=== PATIENT | female | born 1930 | race Two or more races ===

== ENCOUNTER 2019-10-19 00:06 | Inpatient (IN) | payer MEDICARE, OTHER ==
[2019-10-19] VITALS (8 sets, daily range): BP systolic 139–189; BP diastolic 58–91
[~2019-10-19] VITALS: Ht 162.6 cm; Wt 62.6 kg
[~2019-10-19 00:06] MED LIST: ACETAMINOPHEN325 M1 ORAL; ASPIRIN81 MG ORAL; DOCUSATE SODIU100 MG ORAL; ELIQUIS5 MG PO; HYDRALAZINE HCL50 MG ORAL; IBUPROFEN600 MG ORAL; IMODIUM A-1 MG/7.5 M PO; LEVOTHYROXINE75 MCG ORAL; MYLANTA MAXIMU355 ML PO; NITRO0.4 SL
[2019-10-19] MEDS ORDERED: fentaNYL 100 mcg/2 mL IV ONE (00:15)
--- NOTE | 2019-10-19 00:32 | Emergency Room Report ---
History of Present Illness General Chief Complaint: Multiple Trauma/Fall Source: Patient, Medical Record, EMS Present Illness HPI Patient is an 89-year-old female presents to the ER status post fall. Patient states that she slipped on the wet floor hitting her left buttock on the ground. She denies any head trauma or loss of consciousness. Patient is on aspirin. Patient was brought in by EMS from her extended care facility. Patient denies any prodromal symptoms. Patient denies any chest pain or shortness of breath. She denies any headache or focal weakness. She denies any abdominal pain, nausea or vomiting. Allergies: Coded Allergies: No Known Allergies (Unverified , 04/17/19) COVID-19 Screening Contact w/high risk pt: No Recent Travel to affected area: No Experienced COVID-19 symptoms?: No COVID-19 Testing performed POLICE RECORDS CLERK: No Patient History Now: No Reviewed Nursing Documentation: PMH: Agreed; PSxH: Agreed Nursing Documentation-PMH Hx Cardiac Problems: Yes - unspecific cardiac arrhythmia, hyperlipidemia, AFib , hypothyroidism Hx Hypertension: Yes Hx Pacemaker: No Hx Asthma: No Hx COPD: No Hx Diabetes: No Hx Cancer: No Hx Gastrointestinal Problems: Yes - GERD Hx Dialysis: No History Of Psychiatric Problem: No Hx Neurological Problems: No Hx Cerebrovascular Accident: Yes Hx Seizures: No Review of Systems All Other Systems: negative except mentioned in HPI Physical Exam Vital Signs Date Time Temp Pulse Resp B/P (MAP) Pulse Ox O2 Delivery O2 Flow Rate FiO2 10/19/19 00:06 99.3 104 26 168/86 (113) 94 Room Air Sp02 EP Interpretation: reviewed, normal General Appearance: no apparent distress, alert, GCS 15, non-toxic Head: normocephalic, atraumatic Eyes: bilateral eye normal inspection, bilateral eye PERRL ENT: hearing grossly normal, normal pharynx, no angioedema, normal voice Neck: full range of motion, supple/symm/no masses Respiratory: chest non-tender, lungs clear, normal breath sounds, speaking full sentences Cardiovascular #1: irregularly irregular Cardiovascular #2: 2+ dorsalis pedis (R), 2+ dorsalis pedis (L) Gastrointestinal: normal bowel sounds, non tender, soft, non-distended, no guarding, no rebound Rectal: deferred Genitourinary: no CVA tenderness Musculoskeletal: no calf tenderness, other - Left lower extremity shortened and externally rotated, diffuse left hip tenderness to palpation with limited range of motion secondary to pain Neurologic: emergency medicine nurse practitioner III-XII nml as tested Psychiatric: no suicidal/homicidal ideation Skin: no rash Lymphatic: no adenopathy Medical Decision Making Diagnostic Impression: Primary Impression: Closed comminuted intertrochanteric fracture of left femur Additional Impression: Fall ER Course Patient presents after a fall. Patient has left intertrochanteric femur fracture. Patient has been preop. UA is pending at this time. Patient to be admitted for further treatment and evaluation. Laboratory Tests Test 10/19/19 00:10 White Blood Count 10.8 K/UL (4.8-10.8) Red Blood Count 4.23 M/UL (4.20-5.40) Hemoglobin 11.7 G/DL (12.0-16.0) L Hematocrit 36.5 % (37.0-47.0) L Mean Corpuscular Volume 86 FL (80-99) Mean Corpuscular Hemoglobin 27.7 PG (27.0-31.0) Mean Corpuscular Hemoglobin Concent 32.1 G/DL (32.0-36.0) Red Cell Distribution Width 14.7 % (11.6-14.8) Platelet Count 338 K/UL (150-450) Mean Platelet Volume 5.1 FL (6.5-10.1) L Neutrophils (%) (Auto) 80.0 % (45.0-75.0) H Lymphocytes (%) (Auto) 15.1 % (20.0-45.0) L Monocytes (%) (Auto) 3.5 % (1.0-10.0) Eosinophils (%) (Auto) 0.1 % (0.0-3.0) Basophils (%) (Auto) 1.3 % (0.0-2.0) Prothrombin Time 10.6 SEC (9.30-11.50) Prothrombin Time INR 1.0 (0.9-1.1) Activated Partial Thromboplast Time 26 SEC (23-33) Sodium Level 136 MMOL/L (136-145) Potassium Level 4.0 MMOL/L (3.5-5.1) Chloride Level 99 MMOL/L (98-107) Carbon Dioxide Level 28 MMOL/L (21-32) Anion Gap 9 mmol/L (5-15) Blood Urea Nitrogen 25 mg/dL (7-18) H Creatinine 0.9 MG/DL (0.55-1.30) Estimated Glomerular Filtration Rate 59.2 mL/min (>60) Glucose Level 248 MG/DL (74-106) H Calcium Level 9.3 MG/DL (8.5-10.1) Magnesium Level 1.8 MG/DL (1.8-2.4) Total Bilirubin 0.2 MG/DL (0.2-1.0) Aspartate Amino Transferase (AST) 20 U/L (15-37) Alanine Aminotransferase (ALT) 15 U/L (12-78) Alkaline Phosphatase 69 U/L (46-116) Total Protein 8.0 G/DL (6.4-8.2) Albumin 4.2 G/DL (3.4-5.0) Globulin 3.8 g/dL Albumin/Globulin Ratio 1.1 (1.0-2.7) EKG Diagnostic Results EKG Time: 00:31 EP Interpretation: Hanh Rivero MD afib Rate: normal - 97 Rhythm: other - afib ST Segments: no acute changes ASA given to the pt in ED: No Rhythm Strip Diag. Results Rhythm Strip Time: 00:34 EP Interpretation: yes - Hanh Rivero MD Rate: 97 Rhythm: no PVC's, no ectopy, other - afib Other X-Ray Diagnostic Results Other X-Ray Diagnostic Results : X-Ray ordered: pelvis # of Views/Limited Vs Complete: 1 View Indication: Pain EP Interpretation: Yes Interpretation: no dislocation, other - no foreign body, left femoral intertrochanteric fracture. Impression: Other - Comminuted left femoral intertrochanteric fracture. Electronically Signed by: Hanh Rivero MD Last Vital Signs Date Time Temp Pulse Resp B/P (MAP) Pulse Ox O2 Delivery O2 Flow Rate FiO2 10/19/19 00:06 99.3 104 26 168/86 (113) 94 Room Air Disposition: ADMITTED INPATIENT Condition: Critical Physician Consult: Hanh Pandey M.D. Oct 19, 2019 00:32
[2019-10-19 00:57] LABS: BASOPHILS % (AUTO) 1.3 % (0.0-2.0); EOSINOPHILS % (AUTO) 0.1 % (0.0-3.0); HEMATOCRIT 36.5 % (37.0-47.0); HEMOGLOBIN 11.7 G/DL (12.0-16.0); LYMPHOCYTES % (AUTO) 15.1 % (20.0-45.0); MEAN CORPUSCULAR VOLUME 86 FL (80-99); MONOCYTES % (AUTO) 3.5 % (1.0-10.0); PLATELET COUNT 338 K/UL (150-450); RED BLOOD COUNT 4.23 M/UL (4.20-5.40); RED CELL DISTRIBUTION WIDTH 14.7 % (11.6-14.8); WHITE BLOOD COUNT 10.8 K/UL (4.8-10.8)
[2019-10-19 01:06] LABS: ANION GAP 9 mmol/L (5-15); BLOOD UREA NITROGEN 25 mg/dL (7-18); CALCIUM 9.3 MG/DL (8.5-10.1); CARBON DIOXIDE 28 MMOL/L (21-32); CHLORIDE 99 MMOL/L (98-107); CREATININE 0.9 MG/DL (0.55-1.30); SODIUM 136 MMOL/L (136-145)
[2019-10-19 01:10] LABS: ALANINE AMINOTRANSFERASE 15 U/L (12-78); ALBUMIN 4.2 G/DL (3.4-5.0); ALBUMIN/GLOBULIN RATIO 1.1 (1.0-2.7); ALKALINE PHOSPHATASE 69 U/L (46-116); ASPARTATE AMINO TRANSFERASE 20 U/L (15-37); BILIRUBIN,TOTAL 0.2 MG/DL (0.2-1.0)
--- NOTE | 2019-10-19 01:43 | Diagnostic Imaging Report ---
EXAM: XR Pelvis, 1 or 2 Views CLINICAL HISTORY: FALL TECHNIQUE: Frontal view of the pelvis. COMPARISON: No relevant prior studies available. IMPRESSION: Comminuted left femoral intertrochanteric fracture.
--- NOTE | 2019-10-19 01:55 | Diagnostic Imaging Report ---
EXAM: CT Head Without Intravenous Contrast CLINICAL HISTORY: FALL TECHNIQUE: Axial computed tomography images of the head/brain without intravenous contrast. CTDI is 53 mGy and DLP is 1072 mGy-cm. One or more of the following dose reduction techniques were used: automated exposure control, adjustment of the mA and/or kV according to patient size, use of iterative reconstruction technique. COMPARISON: No relevant prior studies available. FINDINGS: Brain: No hemorrhage, herniation, or mass effect. Chronic microvascular ischemic changes. Old infarct in the left periventricular white matter. Ventricles: No hydrocephalus. Age related cerebral volume loss. Bones/joints: Unremarkable. Soft tissues: Unremarkable. Sinuses: Unremarkable. Mastoid air cells: Clear. IMPRESSION: No acute hemorrhage, hydrocephalus, or mass effect.
--- NOTE | 2019-10-19 01:56 | Diagnostic Imaging Report ---
EXAM: XR Chest, 1 View CLINICAL HISTORY: FALL TECHNIQUE: Frontal view of the chest. COMPARISON: 04/17/2019 IMPRESSION: Cardiomegaly. Chronic opacity again seen in the right upper lobe. Possibly scarring, atelectasis, or edema. No pneumothorax or pleural effusion.
--- NOTE | 2019-10-19 02:00 | Diagnostic Imaging Report ---
EXAM: CT Pelvis Without Intravenous Contrast CLINICAL HISTORY: FALL TECHNIQUE: Axial computed tomography images of the pelvis without intravenous contrast. CTDI is 5 mGy and DLP is 187 mGy-cm. One or more of the following dose reduction techniques were used: automated exposure control, adjustment of the mA and/or kV according to patient size, use of iterative reconstruction technique. COMPARISON: X-rays 10/19/2019 FINDINGS: Comminuted left femoral intertrochanteric fracture. Deformity of the right superior and inferior pubic rami, likely due to old fracture. Hip joints are intact bilaterally. Contusion along the left lateral pelvic wall. Severely distended bladder. Colonic diverticulosis. IMPRESSION: Comminuted left femoral intertrochanteric fracture. Deformity of the right superior and inferior pubic rami, likely due to old fracture.
[2019-10-19] MEDS ORDERED: Morphine Sulfate 2mg/ml Inj(IV/IM USE ONLY) IVP PRN (02:30)
[2019-10-19] MEDS ORDERED: Nitroglycerin Subl 0.4mg tab SL PRN (07:00)
[2019-10-19] MEDS: D5 1/2NS 1,000 ML IV SCH ×2 (07:25→23:25)
[2019-10-19] MEDS: HydrALAZINE 50mg tab ORAL SCH ×3 (08:57→21:30)
[2019-10-19] MEDS: Multivitamin w/Minerals tab ORAL SCH (08:58)
[2019-10-19] MEDS: Aspirin Baby 81mg ORAL SCH (08:58)
[2019-10-19 09:12] LABS: ANION GAP 10 mmol/L (5-15); BLOOD UREA NITROGEN 22 mg/dL (7-18); CALCIUM 8.8 MG/DL (8.5-10.1); CARBON DIOXIDE 23 MMOL/L (21-32); CHLORIDE 100 MMOL/L (98-107); CREATININE 0.8 MG/DL (0.55-1.30); POTASSIUM 3.9 MMOL/L (3.5-5.1); SODIUM 133 MMOL/L (136-145)
[2019-10-19 09:38] LABS: EOSINOPHILS % (AUTO) 0.1 % (0.0-3.0); HEMATOCRIT 35.8 % (37.0-47.0); HEMOGLOBIN 10.9 G/DL (12.0-16.0); LYMPHOCYTES % (AUTO) 12.8 % (20.0-45.0); MEAN CORPUSCULAR VOLUME 87 FL (80-99); MONOCYTES % (AUTO) 4.8 % (1.0-10.0); NEUTROPHILS % (AUTO) 81.4 % (45.0-75.0); PLATELET COUNT 327 K/UL (150-450); RED BLOOD COUNT 4.11 M/UL (4.20-5.40); RED CELL DISTRIBUTION WIDTH 14.8 % (11.6-14.8)
[2019-10-19] MEDS: Morphine Sulfate 2mg/ml Inj(IV/IM USE ONLY) IVP PRN ×2 (09:54→14:37)
--- NOTE | 2019-10-19 10:45 | History and Physical Report ---
DATE OF ADMISSION: 10/19/2019 TIME SEEN: Approximately at 9 a.m. CONSULTANTS: 1. Grabiel Moreira MD. 2. Rajat Zamudio MD. CHIEF COMPLAINT: Left hip fracture. BRIEF HISTORY: This is an 89-year-old female from [facility], presented with a recent fall, and x-ray showed left hip fracture. The patient was sent to [facility], diagnosed with above, admitted to medical floor for further treatment. Currently, O2 NC, calm, slightly weak in bed, not talking much. REVIEW OF SYSTEMS: Unavailable. PAST MEDICAL HISTORY: Includes GERD, hypothyroid, CVA, AFib, and hypertension. PAST SURGICAL HISTORY: Unknown. ALLERGIES: Denies. MEDICATIONS: Include apixaban, multivitamin, levothyroxine, Tylenol, nitroglycerin, morphine, Zofran, and hydralazine. SOCIAL HISTORY: No smoking. No alcohol. No intravenous drug abuse. FAMILY HISTORY: Noncontributory. PHYSICAL EXAMINATION: GENERAL: Calm in bed, O2 NC, slightly weak. Not responding to questions. VITAL SIGNS: Temperature 98 degrees, pulse 112, respirations 20, and blood pressure 151/76. GENERAL: Lethargic, sleepy. HEENT: Normocephalic and atraumatic. NECK: Trachea midline. CARDIOVASCULAR: No peripheral edema. LUNGS: Slight short of breath, on O2 nasal cannula. ABDOMEN: No apparent wound. EXTREMITIES: Show no cyanosis or clubbing. LABORATORY AND DIAGNOSTIC DATA: Labs at this time show hemoglobin and hematocrit 11/36, otherwise CBC is normal. BMP shows sodium 133, BUN 22. Glucose 235. INR is 1.0. ASSESSMENT: 1. Left hip fracture. 2. Suspect COVID. 3. Anemia. 4. GERD. 5. Hypothyroid. 6. Diabetes. 7. Hypertension. 8. CVA. 9. Atrial fibrillation. PLAN: 1. O2 and pulmonary treatment. 2. PT/OT and dietary followup. 3. Blood pressure, blood sugar, and pain control. 4. Resume home medications. 5. Cardiology and Orthopedics followup. 6. Possible surgery. Jesus Palomo D.O. DR: JAD JOB#: [id number] CC:
--- NOTE | 2019-10-19 12:48 | Cardiac Electrophysiology PN ---
Subjective Subjective [id number] DC Eliquis if scheduled for surgery. Will transfer to [facility] for atrial fib. Get echo and Add Lopressor 25 bid if HR allows Objective Last 24 Hour Vital Signs Date Time Temp Pulse Resp B/P (MAP) Pulse Ox O2 Delivery O2 Flow Rate FiO2 10/19/19 12:02 98.0 95 20 139/66 (90) 99 10/19/19 09:21 Room Air 10/19/19 08:57 151/76 10/19/19 08:00 98.0 112 20 151/76 (101) 97 10/19/19 04:00 98.0 102 19 159/87 (111) 98 10/19/19 03:45 Nasal Cannula 2.0 10/19/19 02:30 98.8 100 20 155/77 (103) 99 10/19/19 02:25 98.7 95 18 149/60 100 Nasal Cannula 3.0 100 10/19/19 01:33 98.8 100 18 163/58 100 Nasal Cannula 3.0 10/19/19 00:52 99.4 10/19/19 00:28 189/91 10/19/19 00:20 99.3 95 19 189/91 99 Nasal Cannula 3.0 10/19/19 00:20 104 26 Room Air 10/19/19 00:06 99.3 104 26 168/86 (113) 94 Room Air Intake and Output 10/18/19 10/19/19 19:00 07:00 Intake Total 1000 ml Balance 1000 ml Intake IV Total 1000 ml Laboratory Tests Test 10/19/19 00:10 10/19/19 08:35 White Blood Count 10.8 K/UL (4.8-10.8) 9.0 K/UL (4.8-10.8) Red Blood Count 4.23 M/UL (4.20-5.40) 4.11 M/UL (4.20-5.40) L Hemoglobin 11.7 G/DL (12.0-16.0) L 10.9 G/DL (12.0-16.0) L Hematocrit 36.5 % (37.0-47.0) L 35.8 % (37.0-47.0) L Mean Corpuscular Volume 86 FL (80-99) 87 FL (80-99) Mean Corpuscular Hemoglobin 27.7 PG (27.0-31.0) 26.5 PG (27.0-31.0) L Mean Corpuscular Hemoglobin Concent 32.1 G/DL (32.0-36.0) 30.5 G/DL (32.0-36.0) L Red Cell Distribution Width 14.7 % (11.6-14.8) 14.8 % (11.6-14.8) Platelet Count 338 K/UL (150-450) 327 K/UL (150-450) Mean Platelet Volume 5.1 FL (6.5-10.1) L 4.8 FL (6.5-10.1) L Neutrophils (%) (Auto) 80.0 % (45.0-75.0) H 81.4 % (45.0-75.0) H Lymphocytes (%) (Auto) 15.1 % (20.0-45.0) L 12.8 % (20.0-45.0) L Monocytes (%) (Auto) 3.5 % (1.0-10.0) 4.8 % (1.0-10.0) Eosinophils (%) (Auto) 0.1 % (0.0-3.0) 0.1 % (0.0-3.0) Basophils (%) (Auto) 1.3 % (0.0-2.0) 1.0 % (0.0-2.0) Prothrombin Time 10.6 SEC (9.30-11.50) Prothromb Time International Ratio 1.0 (0.9-1.1) Activated Partial Thromboplast Time 26 SEC (23-33) Sodium Level 136 MMOL/L (136-145) 133 MMOL/L (136-145) L Potassium Level 4.0 MMOL/L (3.5-5.1) 3.9 MMOL/L (3.5-5.1) Chloride Level 99 MMOL/L (98-107) 100 MMOL/L (98-107) Carbon Dioxide Level 28 MMOL/L (21-32) 23 MMOL/L (21-32) Anion Gap 9 mmol/L (5-15) 10 mmol/L (5-15) Blood Urea Nitrogen 25 mg/dL (7-18) H 22 mg/dL (7-18) H Creatinine 0.9 MG/DL (0.55-1.30) 0.8 MG/DL (0.55-1.30) Estimat Glomerular Filtration Rate 59.2 mL/min (>60) > 60 mL/min (>60) Glucose Level 248 MG/DL (74-106) H 235 MG/DL (74-106) H Calcium Level 9.3 MG/DL (8.5-10.1) 8.8 MG/DL (8.5-10.1) Magnesium Level 1.8 MG/DL (1.8-2.4) Total Bilirubin 0.2 MG/DL (0.2-1.0) Aspartate Amino Transf (AST/SGOT) 20 U/L (15-37) Alanine Aminotransferase (ALT/SGPT) 15 U/L (12-78) Alkaline Phosphatase 69 U/L (46-116) Total Protein 8.0 G/DL (6.4-8.2) Albumin 4.2 G/DL (3.4-5.0) Globulin 3.8 g/dL Albumin/Globulin Ratio 1.1 (1.0-2.7) Microbiology Date/Time Source Procedure Growth Status 10/19/19 02:25 Rectum Received Rajat Zamudio MD Oct 19, 2019 12:48
[2019-10-19] MEDS: Eliquis 5mg tablet ORAL SCH (14:36)
--- NOTE | 2019-10-19 18:15 | Consultation ---
DATE OF CONSULTATION: 10/19/2019 CARDIOLOGY CONSULTATION CONSULTING PHYSICIAN: Rajat Zamudio MD. REFERRING PHYSICIAN: Jesus Palomo DO. REASON FOR CONSULTATION: hypertension, atrial fibrillation, and preoperative clearance prior to hip surgery. HISTORY OF PRESENT ILLNESS: The patient is an 89-year-old lady with history of hypertension, chronic atrial fibrillation, and dementia as well as gastroesophageal reflux disease as well as history of prior CVA, who was brought to the emergency room after she had slipped on wet floor, hitting the left body on the ground. The patient denies any loss of consciousness or head trauma. The patient was brought in by paramedics from [facility]. The x-ray showed closed comminuted intertrochanteric fracture of the left femur. Cardiology consultation was obtained for further evaluation. Her EKG also showed the patient was in atrial fibrillation with nonspecific ST-T wave abnormalities. REVIEW OF SYSTEMS: Negative other than what was mentioned in the history of present illness. PAST MEDICAL HISTORY: As mentioned above. FAMILY HISTORY: Noncontributory. SOCIAL HISTORY: She lives in long-term. Does not smoke or drink alcohol. PHYSICAL EXAMINATION: VITAL SIGNS: Blood pressure 139/66, pulse 95, respirations 20, temperature 98. HEAD AND NECK: Showed no JVD. LUNGS: Clear. CARDIOVASCULAR: Irregular S1 and S2 with no gallop. ABDOMEN: Soft. EXTREMITIES: No pitting edema. LABORATORY AND DIAGNOSTIC DATA: Her labs show white count of 9, hemoglobin of 11, hematocrit of 35, and platelet count of 327,000. Sodium is 132, potassium 3.9, BUN of 22, creatinine 0.8, and glucose of 235. INR is 1. ASSESSMENT AND PLAN: 1. Atrial fibrillation. The rate is currently controlled. She is on Eliquis 5 mg daily. Transfer to telemetry for close monitoring and get an echocardiogram. 2. Abnormal electrocardiogram, ischemia. The patient does not have any chest pain. Already on aspirin 81 mg daily. 3. Hypertension, on hydralazine 50 mg every 8 hours. 4. Status post fall and left hip fracture. Awaiting consent for surgery. We will also get an echocardiogram for further evaluation and transfer the patient to telemetry. Of note, the patient is off any AV-solomon blocking agents and may need to be put on beta-ben for her rate control for preoperative risk reduction with beta-blockers. Thank you very much, , for allowing me to participate in the care of this patient. Please do not hesitate to contact me for any questions regarding my evaluation. Rajat Zamudio M.D. DR: Madalyn JOB#: [id number] CC:
[2019-10-20] VITALS: BP 129/69
[2019-10-20 04:00] VITALS: BP 141/60
[2019-10-20] MEDS: HydrALAZINE 50mg tab ORAL SCH ×2 (05:20→14:34)
[2019-10-20] MEDS: Morphine Sulfate 2mg/ml Inj(IV/IM USE ONLY) IVP PRN (05:21)
[2019-10-20 06:02] LABS: BASOPHILS % (AUTO) 1.8 % (0.0-2.0); EOSINOPHILS % (AUTO) 1.2 % (0.0-3.0); HEMATOCRIT 31.9 % (37.0-47.0); HEMOGLOBIN 9.7 G/DL (12.0-16.0); LYMPHOCYTES % (AUTO) 11.2 % (20.0-45.0); MEAN CORPUSCULAR VOLUME 88 FL (80-99); MONOCYTES % (AUTO) 8.7 % (1.0-10.0); NEUTROPHILS % (AUTO) 77.1 % (45.0-75.0); PLATELET COUNT 285 K/UL (150-450); RED BLOOD COUNT 3.63 M/UL (4.20-5.40); RED CELL DISTRIBUTION WIDTH 14.9 % (11.6-14.8); WHITE BLOOD COUNT 8.1 K/UL (4.8-10.8)
[2019-10-20 06:13] LABS: ANION GAP 10 mmol/L (5-15); BLOOD UREA NITROGEN 22 mg/dL (7-18); CALCIUM 8.6 MG/DL (8.5-10.1); CARBON DIOXIDE 26 MMOL/L (21-32); CHLORIDE 100 MMOL/L (98-107); CHOLESTEROL 157 MG/DL (< 200); CREATININE 0.7 MG/DL (0.55-1.30); HDL CHOLESTEROL 47 MG/DL (40-60); POTASSIUM 3.9 MMOL/L (3.5-5.1); SODIUM 135 MMOL/L (136-145); TRIGLYCERIDES 133 MG/DL (30-150)
[2019-10-20] MEDS: Aspirin Baby 81mg ORAL SCH (07:45)
[2019-10-20] MEDS: Eliquis 5mg tablet ORAL SCH (07:46)
[2019-10-20 08:00] VITALS: BP 101/53
[2019-10-20] MEDS ORDERED: D5 1/2NS 1000ml IV ONE (08:27)
[2019-10-20] MEDS: Multivitamin w/Minerals tab ORAL SCH (08:51)
--- NOTE | 2019-10-20 08:53 | General Progress Note ---
Assessment/Plan Problem List: (1) Troponin level elevated ICD Codes: R79.89 - Other specified abnormal findings of blood chemistry SNOMED: 580765414, 738277992, 951113169 (2) GERD (gastroesophageal reflux disease) ICD Codes: K21.9 - Gastro-esophageal reflux disease without esophagitis SNOMED: 894775346 (3) Hypothyroid ICD Codes: E03.9 - Hypothyroidism, unspecified SNOMED: 07585976 (4) CVA (cerebral vascular accident) ICD Codes: I63.9 - Cerebral infarction, unspecified SNOMED: 837969730 (5) Afib ICD Codes: I48.91 - Unspecified atrial fibrillation SNOMED: 40612555 (6) HTN (hypertension) ICD Codes: I10 - Essential (primary) hypertension SNOMED: 74420808 (7) Fall ICD Codes: W19.XXXA - Unspecified fall, initial encounter SNOMED: 8456882, 166753517 (8) Closed comminuted intertrochanteric fracture of left femur ICD Codes: S72.142A - Displaced intertrochanteric fracture of left femur, initial encounter for closed fracture SNOMED: 266461745, 84471117814984357 Status: unchanged Assessment/Plan: o2 pulm tx pt diet cardio ortho f/u cbc bmp am Subjective Constitutional: Reports: weakness Allergies: Coded Allergies: No Known Allergies (Unverified , 04/17/19) All Systems: reviewed and negative except above Subjective o2nc sleepy Objective Last 24 Hour Vital Signs Date Time Temp Pulse Resp B/P (MAP) Pulse Ox O2 Delivery O2 Flow Rate FiO2 10/20/19 05:20 141/60 10/20/19 04:00 97.7 98 24 141/60 (87) 96 98 10/20/19 00:00 97.9 108 26 129/69 (89) 98 108 10/19/19 21:30 147/65 10/19/19 21:00 Nasal Cannula 2.0 10/19/19 20:00 96.8 105 26 147/65 (92) 95 105 10/19/19 16:00 98.2 96 24 148/72 (97) 97 10/19/19 14:37 139/66 10/19/19 12:02 98.0 95 20 139/66 (90) 99 10/19/19 09:21 Room Air 10/19/19 08:57 151/76 Intake and Output 10/19/19 10/20/19 19:00 07:00 Intake Total 850 ml Output Total 200 ml Balance 850 ml -200 ml Intake Oral 200 ml IV Total 450 ml Other 200 ml Output Urine Total 200 ml # Voids 2 1 Laboratory Tests 10/19/19 17:50: Troponin I 0.241H 10/20/19 03:15: Troponin I 0.146H, White Blood Count 8.1, Red Blood Count 3.63L, Hemoglobin 9.7L , Hematocrit 31.9L, Mean Corpuscular Volume 88, Mean Corpuscular Hemoglobin 26.7L, Mean Corpuscular Hemoglobin Concent 30.4L, Red Cell Distribution Width 14.9H, Platelet Count 285, Mean Platelet Volume 4.8L, Neutrophils (%) (Auto) 77.1H, Lymphocytes (%) (Auto) 11.2L, Monocytes (%) (Auto) 8.7, Eosinophils (%) ( Auto) 1.2, Basophils (%) (Auto) 1.8, Sodium Level 135L, Potassium Level 3.9, Chloride Level 100, Carbon Dioxide Level 26, Anion Gap 10, Blood Urea Nitrogen 22H, Creatinine 0.7, Estimat Glomerular Filtration Rate > 60, Glucose Level 183H , Calcium Level 8.6, Pro-B-Type Natriuretic Peptide 1488H, Triglycerides Level 133, Cholesterol Level 157, LDL Cholesterol 87, HDL Cholesterol 47, Cholesterol/ HDL Ratio 3.3 Height (Feet): 5 Height (Inches): 4.00 Weight (Pounds): 138 General Appearance: lethargic EENT: normal ENT inspection Neck: normal alignment Cardiovascular: normal rate, regular rhythm Respiratory/Chest: no respiratory distress, no accessory muscle use Extremities: normal inspection Edema: no edema noted Arm (L), no edema noted Arm (R), no edema noted Leg (L), no edema noted Leg (R), no edema noted Pedal (L), no edema noted Pedal (R), no edema noted Generalized Skin: normal pigmentation Jesus Palomo DO Oct 20, 2019 08:53
[2019-10-20 12:00] VITALS: BP 154/64
--- NOTE | 2019-10-20 15:02 | Cardiac Electrophysiology PN ---
Assessment/Plan Assessment/Plan 1. Atrial fibrillation with RVR 130s. Add Lopressor 25 bid. 2. NSTEMI with lateral ischemia. Troponin levels are down from 0.33 to 0.2 to 0.1 The patient does not have any chest pain. Already on aspirin 81 mg daily.Add lopressor 25 bid and Lipitor 20. Likely demand ischemia in this 89 year old with atrial fib with RVR and hip Fx. ECho Nl EF Will treat medically. Not a candidate for cardiac cath at this point 3. Hypertension, decrease hydralazine to 25 mg every 8 hours and add Lopressor 25 bid 4. Status post fall and left hip fracture. Patient refusing surgery. Echocardiogram showed Nl EF 60%. Remains at high risk of perioperative mortality in view of age 89 and NSTEMI. 5. Being Ruled out for COVID DW RN Subjective Subjective Refusing surgery. Had atrial fib with RVR 130s. On tele now. In Covid isolation Objective Last 24 Hour Vital Signs Date Time Temp Pulse Resp B/P (MAP) Pulse Ox O2 Delivery O2 Flow Rate FiO2 10/20/19 14:34 128/54 10/20/19 12:00 96.8 94 20 154/64 (94) 100 100 10/20/19 09:00 Nasal Cannula 2.0 10/20/19 08:00 97.7 69 18 101/53 (69) 100 100 10/20/19 05:20 141/60 10/20/19 04:00 97.7 98 24 141/60 (87) 96 98 10/20/19 00:00 97.9 108 26 129/69 (89) 98 108 10/19/19 21:30 147/65 10/19/19 21:00 Nasal Cannula 2.0 10/19/19 20:00 96.8 105 26 147/65 (92) 95 105 10/19/19 16:00 98.2 96 24 148/72 (97) 97 Intake and Output 10/19/19 10/20/19 19:00 07:00 Intake Total 850 ml Output Total 200 ml Balance 850 ml -200 ml Intake Oral 200 ml IV Total 450 ml Other 200 ml Output Urine Total 200 ml # Voids 2 1 Laboratory Tests Test 10/19/19 17:50 10/20/19 03:15 Troponin I 0.241 ng/mL (0.000-0.056) 0.146 ng/mL (0.000-0.056) White Blood Count 8.1 K/UL (4.8-10.8) Red Blood Count 3.63 M/UL (4.20-5.40) L Hemoglobin 9.7 G/DL (12.0-16.0) L Hematocrit 31.9 % (37.0-47.0) L Mean Corpuscular Volume 88 FL (80-99) Mean Corpuscular Hemoglobin 26.7 PG (27.0-31.0) L Mean Corpuscular Hemoglobin Concent 30.4 G/DL (32.0-36.0) L Red Cell Distribution Width 14.9 % (11.6-14.8) H Platelet Count 285 K/UL (150-450) Mean Platelet Volume 4.8 FL (6.5-10.1) L Neutrophils (%) (Auto) 77.1 % (45.0-75.0) H Lymphocytes (%) (Auto) 11.2 % (20.0-45.0) L Monocytes (%) (Auto) 8.7 % (1.0-10.0) Eosinophils (%) (Auto) 1.2 % (0.0-3.0) Basophils (%) (Auto) 1.8 % (0.0-2.0) Sodium Level 135 MMOL/L (136-145) L Potassium Level 3.9 MMOL/L (3.5-5.1) Chloride Level 100 MMOL/L (98-107) Carbon Dioxide Level 26 MMOL/L (21-32) Anion Gap 10 mmol/L (5-15) Blood Urea Nitrogen 22 mg/dL (7-18) H Creatinine 0.7 MG/DL (0.55-1.30) Estimat Glomerular Filtration Rate > 60 mL/min (>60) Glucose Level 183 MG/DL (74-106) H Calcium Level 8.6 MG/DL (8.5-10.1) Pro-B-Type Natriuretic Peptide 1488 pg/mL (0-125) H Triglycerides Level 133 MG/DL (30-150) Cholesterol Level 157 MG/DL (< 200) LDL Cholesterol 87 mg/dL (<100) HDL Cholesterol 47 MG/DL (40-60) Cholesterol/HDL Ratio 3.3 (3.3-4.4) Microbiology Date/Time Source Procedure Growth Status 10/19/19 00:10 Nasopharynx Coronavirus COVID-19 PCR ([facility]) - Final Complete 10/19/19 02:25 Rectum Received Objective HEAD AND NECK: No JVD. LUNGS: Clear. CARDIOVASCULAR: Irregular S1 and S2 with no gallop. ABDOMEN: Soft. EXTREMITIES: No pitting edema. Rajat Zamudio MD Oct 20, 2019 15:02
[2019-10-20 16:00] VITALS: BP 137/74
[2019-10-20] MEDS: D5 1/2NS 1,000 ML IV SCH (17:23)
[2019-10-20] MEDS: HydrALAZINE 25mg tab ORAL SCH (17:25)
[2019-10-20 20:00] VITALS: BP 137/61
[2019-10-20] MEDS: Atorvastatin 20mg tab ORAL SCH (21:05)
[2019-10-21] VITALS (12 sets, daily range): BP systolic 107–152; BP diastolic 46–68
[2019-10-21] MEDS: Morphine Sulfate 2mg/ml Inj(IV/IM USE ONLY) IVP PRN (02:30)
[2019-10-21] MEDS ORDERED: LORazepam 0.5mg tab ORAL PRN (05:15)
[2019-10-21 05:36] LABS: BASOPHILS % (AUTO) 2.8 % (0.0-2.0); EOSINOPHILS % (AUTO) 2.8 % (0.0-3.0); HEMATOCRIT 34.8 % (37.0-47.0); HEMOGLOBIN 10.3 G/DL (12.0-16.0); LYMPHOCYTES % (AUTO) 15.8 % (20.0-45.0); MEAN CORPUSCULAR VOLUME 89 FL (80-99); MONOCYTES % (AUTO) 11.5 % (1.0-10.0); NEUTROPHILS % (AUTO) 67.1 % (45.0-75.0); PLATELET COUNT 309 K/UL (150-450); RED BLOOD COUNT 3.92 M/UL (4.20-5.40); RED CELL DISTRIBUTION WIDTH 14.4 % (11.6-14.8); WHITE BLOOD COUNT 8.4 K/UL (4.8-10.8)
[2019-10-21 06:06] LABS: ANION GAP 8 mmol/L (5-15); BLOOD UREA NITROGEN 15 mg/dL (7-18); CALCIUM 8.6 MG/DL (8.5-10.1); CARBON DIOXIDE 25 MMOL/L (21-32); CHLORIDE 97 MMOL/L (98-107); CREATININE 0.6 MG/DL (0.55-1.30); POTASSIUM 3.7 MMOL/L (3.5-5.1); SODIUM 130 MMOL/L (136-145)
--- NOTE | 2019-10-21 08:41 | General Progress Note ---
Assessment/Plan Problem List: (1) Troponin level elevated ICD Codes: R79.89 - Other specified abnormal findings of blood chemistry SNOMED: 225678680, 398381412, 860635484 (2) GERD (gastroesophageal reflux disease) ICD Codes: K21.9 - Gastro-esophageal reflux disease without esophagitis SNOMED: 211327208 (3) Hypothyroid ICD Codes: E03.9 - Hypothyroidism, unspecified SNOMED: 71510504 (4) CVA (cerebral vascular accident) ICD Codes: I63.9 - Cerebral infarction, unspecified SNOMED: 828624265 (5) Afib ICD Codes: I48.91 - Unspecified atrial fibrillation SNOMED: 49675810 (6) HTN (hypertension) ICD Codes: I10 - Essential (primary) hypertension SNOMED: 19853427 (7) Fall ICD Codes: W19.XXXA - Unspecified fall, initial encounter SNOMED: 4801138, 723538539 (8) Closed comminuted intertrochanteric fracture of left femur ICD Codes: S72.142A - Displaced intertrochanteric fracture of left femur, initial encounter for closed fracture SNOMED: 510377388, [id number] Status: unchanged Assessment/Plan: o2 pulm tx pt diet cardio ortho f/u cbc bmp am possible sx Subjective Constitutional: Reports: weakness Allergies: Coded Allergies: No Known Allergies (Unverified , 04/17/19) All Systems: reviewed and negative except above Subjective calm sleepy Objective Last 24 Hour Vital Signs Date Time Temp Pulse Resp B/P (MAP) Pulse Ox O2 Delivery O2 Flow Rate FiO2 10/21/19 04:00 97.9 90 18 146/52 (83) 96 90 10/21/19 04:00 78 10/21/19 03:00 98.7 10/21/19 00:00 98.7 79 18 130/55 (80) 94 79 10/21/19 00:00 79 10/20/19 21:04 100 134/61 10/20/19 21:00 Nasal Cannula 2.0 10/20/19 20:00 99.2 100 18 137/61 (86) 95 100 10/20/19 20:00 109 10/20/19 17:25 137/74 10/20/19 16:00 97.7 81 20 137/74 (95) 100 100 10/20/19 16:00 101 10/20/19 14:34 128/54 10/20/19 12:00 96.8 94 20 154/64 (94) 100 100 10/20/19 09:00 Nasal Cannula 2.0 Intake and Output 10/20/19 10/21/19 19:00 07:00 Intake Total 120 ml Output Total 200 ml 400 ml Balance -80 ml -400 ml Intake Oral 120 ml Output Urine Total 200 ml 400 ml Laboratory Tests 10/21/19 04:00: White Blood Count 8.4, Red Blood Count 3.92L, Hemoglobin 10.3L, Hematocrit 34.8L , Mean Corpuscular Volume 89, Mean Corpuscular Hemoglobin 26.2L, Mean Corpuscular Hemoglobin Concent 29.5L, Red Cell Distribution Width 14.4, Platelet Count 309, Mean Platelet Volume 4.7L, Neutrophils (%) (Auto) 67.1, Lymphocytes (%) (Auto) 15.8L, Monocytes (%) (Auto) 11.5H, Eosinophils (%) (Auto ) 2.8, Basophils (%) (Auto) 2.8H, Sodium Level 130L, Potassium Level 3.7, Chloride Level 97L, Carbon Dioxide Level 25, Anion Gap 8, Blood Urea Nitrogen 15 , Creatinine 0.6, Estimat Glomerular Filtration Rate > 60, Glucose Level 187H, Calcium Level 8.6 Height (Feet): 5 Height (Inches): 4.00 Weight (Pounds): 138 General Appearance: lethargic EENT: normal ENT inspection Neck: normal alignment Cardiovascular: normal rate, regular rhythm Respiratory/Chest: no respiratory distress, no accessory muscle use Extremities: normal inspection Skin: normal pigmentation Jesus Palomo DO Oct 21, 2019 08:41
--- NOTE | 2019-10-21 08:48 | Consultation ---
History of Present Illness General Date patient seen: Oct 21, 2019 Time patient seen: 07:30 Chief Complaint: Multiple Trauma/Fall Referring physician: Dr Palomo Reason for Consultation: pulm/in hospital care Present Illness HPI 89 years old female with PMH of HTN, HLD, A fib, CVA , hypothyroidism, GERD, presented to ED after fall. Patient apparently slipped on the wet floor hitting her left buttock on the ground. She denied head trauma or loss of consciousness . Patient was taking aspirin . She denied CP and SOB No NOVAK or focal weakness No abdominal pain , n/v. Upon evaluation patient was slightly tachycardic, tachypneic, BP was elevated 168/86 , pulse oximetry was stable on room air Laboratory work-up revealed no leukocytosis ,stable hemoglobin, hematocrit and platelet counts. Stable electrolytes. BUN 25, creatinine 0.9. Glucose 248. Stable LFT. Albumin 4.2 Initial troponin 0.374, repeated 0.241. EKG revealed atrial fibrillation with controlled ventricular response Echocardiogram demonstrated preserved ejection fraction of 60%. No evidence of WMA Mild left ventricular hypertrophy. Right ventricular systolic pressure of 29. Chest x-ray demonstrated cardiomegaly, chronic opacity left right upper lobe, possibly scaring ,atelectasis or edema, no pneumothorax or pleural effusion. CT of the head revealed no evidence of acute intracranial bleeding. Old infarct in the left periventricular white matter noted. CT of the pelvis demonstrated comminuted left femoral intertrochanteric fracture. X-ray of the pelvis revealed comminuted left femoral intertrochanteric fracture. In emergency department patient received analgesic and admitted for further work -up to telemetry floor. Allergies: Coded Allergies: No Known Allergies (Unverified , 04/17/19) Medication History Scheduled Aspirin* (Aspirin*), 81 MG ORAL DAILY, (Reported) Docusate Sodium* (Docusate Sodium*), 100 MG ORAL THREE TIMES A DAY, (Reported) Hydralazine Hcl* (Hydralazine Hcl*), 50 MG ORAL EVERY 8 HOURS, (Reported) Ibuprofen (Motrin), 600 MG ORAL FOUR TIMES A DAY, (Reported) Levothyroxine Sodium* (Levothyroxine Sodium*), 75 MCG ORAL DAILY, (Reported) Scheduled PRN Acetaminophen* (Acetaminophen 325MG Tablet*), 325 MG ORAL Q4H PRN for MILD PAIN, (Reported) Nitroglycerin 0.4MG table* (Nitroglycerin*), 0.4 MG SL Q5M PRN Miscellaneous Medications Apixaban (Eliquis), 5 MG PO, (Reported) Loperamide Hcl (Imodium A-D), 1 MG PO, (Reported) Mag Hydrox/Aluminum Hyd/Simeth (Mylanta Maximum Strength Liq), 355 ML PO, ( Reported) Patient History History Provided By: Medical Record Healthcare decision maker Resuscitation status Full code Advanced Directive on File Past Medical/Surgical History Past Medical/Surgical History: (1) CVA (cerebral vascular accident) (2) Afib (3) Hypothyroid (4) HTN (hypertension) (5) GERD (gastroesophageal reflux disease) Review of Systems Constitutional: Reports: weakness Eye: Reports: no symptoms Respiratory: Reports: no symptoms Cardiovascular: Reports: other - no CP, no SOB Gastrointestinal: Reports: constipation Genitourinary: Reports: no symptoms Musculoskeletal: Reports: see HPI, other - L hip pain Skin: Reports: no symptoms Psychiatric: Reports: no symptoms Neurological: Reports: other - hx of CVA Endocrine: Reports: no symptoms Hematologic/Lymphatic: Reports: no symptoms ROS Narrative Physical Exam General Appearance: no apparent distress, alert, other - elderly Yi speaking female Lines, tubes and drains: peripheral HEENT: normocephalic, atraumatic, anicteric, mucous membranes moist Neck: non-tender, supple Respiratory/Chest: lungs clear, no respiratory distress, no accessory muscle use Cardiovascular/Chest: irregularly irregular - A fib with controlled response Abdomen: normal bowel sounds, non tender, soft Extremities: no calf tenderness, normal capillary refill, no edema Skin Exam: warm/dry Neurologic: structural test engineer 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 grossly normal, abnormal gait, alert, responsive Musculoskeletal: atrophy - BLE, other - LLE shortened and externally rotated, diffuse L hip tenderness to palpation with limited ROM secondary to pain Last 24 Hour Vital Signs Date Time Temp Pulse Resp B/P (MAP) Pulse Ox O2 Delivery O2 Flow Rate FiO2 10/21/19 04:00 97.9 90 18 146/52 (83) 96 90 10/21/19 04:00 78 10/21/19 03:00 98.7 10/21/19 00:00 98.7 79 18 130/55 (80) 94 79 10/21/19 00:00 79 10/20/19 21:04 100 134/61 10/20/19 21:00 Nasal Cannula 2.0 10/20/19 20:00 99.2 100 18 137/61 (86) 95 100 10/20/19 20:00 109 10/20/19 17:25 137/74 10/20/19 16:00 97.7 81 20 137/74 (95) 100 100 10/20/19 16:00 101 10/20/19 14:34 128/54 10/20/19 12:00 96.8 94 20 154/64 (94) 100 100 10/20/19 09:00 Nasal Cannula 2.0 Intake and Output 10/20/19 10/21/19 19:00 07:00 Intake Total 120 ml Output Total 200 ml 400 ml Balance -80 ml -400 ml Intake Oral 120 ml Output Urine Total 200 ml 400 ml Laboratory Tests Test 10/21/19 04:00 White Blood Count 8.4 K/UL (4.8-10.8) Red Blood Count 3.92 M/UL (4.20-5.40) L Hemoglobin 10.3 G/DL (12.0-16.0) L Hematocrit 34.8 % (37.0-47.0) L Mean Corpuscular Volume 89 FL (80-99) Mean Corpuscular Hemoglobin 26.2 PG (27.0-31.0) L Mean Corpuscular Hemoglobin Concent 29.5 G/DL (32.0-36.0) L Red Cell Distribution Width 14.4 % (11.6-14.8) Platelet Count 309 K/UL (150-450) Mean Platelet Volume 4.7 FL (6.5-10.1) L Neutrophils (%) (Auto) 67.1 % (45.0-75.0) Lymphocytes (%) (Auto) 15.8 % (20.0-45.0) L Monocytes (%) (Auto) 11.5 % (1.0-10.0) H Eosinophils (%) (Auto) 2.8 % (0.0-3.0) Basophils (%) (Auto) 2.8 % (0.0-2.0) H Sodium Level 130 MMOL/L (136-145) L Potassium Level 3.7 MMOL/L (3.5-5.1) Chloride Level 97 MMOL/L (98-107) L Carbon Dioxide Level 25 MMOL/L (21-32) Anion Gap 8 mmol/L (5-15) Blood Urea Nitrogen 15 mg/dL (7-18) Creatinine 0.6 MG/DL (0.55-1.30) Estimat Glomerular Filtration Rate > 60 mL/min (>60) Glucose Level 187 MG/DL (74-106) H Calcium Level 8.6 MG/DL (8.5-10.1) Height (Feet): 5 Height (Inches): 4.00 Weight (Pounds): 138 Medications Current Medications Medications (Trade) Dose Ordered Sig/Lucina Route PRN Reason Start Time Stop Time Status Last Admin Dose Admin Acetaminophen (Tylenol) 325 mg Q4H PRN RECTAL Mild Pain (Pain Scale 1-3) 10/19/19 07:00 11/18/19 06:59 Apixaban (Eliquis) 5 mg DAILY ORAL 10/19/19 13:39 01/17/20 13:38 10/19/19 14:36 Aspirin (ASA) 81 mg DAILY ORAL 10/19/19 09:00 12/03/19 08:59 10/19/19 08:58 Atorvastatin Calcium (Lipitor) 20 mg BEDTIME ORAL 10/20/19 21:00 01/18/20 20:59 10/20/19 21:05 Dextrose/Sodium Chloride 1,000 ml @ 60 mls/hr [id number] IV 10/19/19 06:45 11/18/19 06:44 10/20/19 17:23 Hydralazine HCl (Apresoline) 25 mg BID ORAL 10/20/19 18:00 01/17/20 07:29 10/20/19 17:25 Levothyroxine Sodium (Synthroid) 75 mcg DAILY@0630 ORAL 10/19/19 07:30 11/18/19 07:29 10/21/19 06:28 Lorazepam (Ativan) 0.5 mg Q6H PRN ORAL For Anxiety 10/21/19 05:15 10/28/19 05:14 Memantine (Namenda) 5 mg DAILY ORAL 10/21/19 09:00 11/20/19 08:59 Metoprolol Tartrate (Lopressor) 25 mg Q12HR ORAL 10/20/19 21:00 01/18/20 20:59 10/20/19 21:04 Morphine Sulfate (Morphine Sulfate) 2 mg Q4H PRN IVP Moderate Pain (Pain Scale 4-6) 10/19/19 03:45 10/26/19 03:44 10/21/19 02:30 Multivitamins Therapeutic (Therapeutic Multivitamin) 1 ea DAILY ORAL 10/19/19 09:00 11/18/19 08:59 10/20/19 08:51 Nitroglycerin (Ntg) 0.4 mg Q5M PRN SL Prn Chest Pain 10/19/19 07:00 11/18/19 06:59 Assessment/Plan Assessment/Plan: ASSESSMENT Closed comminuted intertrochanteric fracture left femur secondary to fall Elevated troponin/NSTEMI Hypertension Atrial fibrillation History of CVA Hypothyroidism GERD Hyperglycemia PLAN OF CARE telemetry O2 titrate to keep sat above 92% , pulmonary toilet prn CXR stable serial troponin noted antiplatelet therapy with ASA, beta-blockade and statin lipid panel stable ECHO with pEF per cardio not a candidate for cardiac cath ; recommended medical treatment NSTEMI likely due to demand ischemia in setting of fal with fracture and A. fib rate control with BB, a/c with Eliquis BP management with hydralazine and BB ortho eval pending pain management fall precaution gentle IV hydration, monitor renal parameters, correct lytes as needed continue levothyroxine , check TSH hyperglycemia note, ? DM vs due to dextrose IV running and drawing blood from the the same arm ; will check HgA1c case discussed and evaluated by supervising physician Olivia Shannon NP Oct 21, 2019 08:48
[2019-10-21] MEDS: Aspirin Baby 81mg ORAL SCH (09:00)
[2019-10-21] MEDS: Eliquis 5mg tablet ORAL SCH (09:00)
[2019-10-21] MEDS: Memantine 10mg tab ORAL SCH (09:27)
[2019-10-21] MEDS: Multivitamin w/Minerals tab ORAL SCH (09:27)
[2019-10-21] MEDS: HydrALAZINE 25mg tab ORAL SCH ×2 (09:28→19:02)
[2019-10-21] MEDS: D5 1/2NS 1,000 ML IV SCH (10:55)
[2019-10-21] MEDS ORDERED: NeoSporin Gu Irrig 1ml Amp IRRIG ONE (12:37)
[2019-10-21] MEDS ORDERED: Bacitracin 50000 Units Vial ONE (12:37)
[2019-10-21] MEDS ORDERED: Bupivacaine w/Epi 0.5% 30ml Vial INJ ONE (12:37)
[2019-10-21] MEDS ORDERED: LR 1000ml ONE (13:00)
[2019-10-21] MEDS ORDERED: NS Irrig 1000ml ONE (13:00)
[2019-10-21] MEDS ORDERED: Sterile Water Irrig 1000ml IRRIG ONE (13:00)
--- NOTE | 2019-10-21 13:00 | Cardiac Electrophysiology PN ---
Assessment/Plan Assessment/Plan 1. Atrial fibrillation with RVR 130s. Decrease Lopressor to 12.5 bid in view of Mobitz block and chris. 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 2. NSTEMI with lateral ischemia. Troponin levels are coming down from 0.33 to 0.2 to 0.1 The patient does not have any chest pain. Already on aspirin 81 mg daily and lopressor 12.5 bid and Lipitor 20. Likely demand ischemia in this 89 year old with atrial fib with RVR and hip Fx. ECho Nl EF Will treat medically. Not a candidate for cardiac cath at this point 3. Hypertension, on hydralazine to 25 mg every 8 hours and Lopressor 12.5 bid 4. Status post fall and left hip fracture. Patient refusing surgery. Echocardiogram showed Nl EF 60%. Remains at high risk of perioperative mortality in view of age 89, tachy chris syndrome and NSTEMI. BARB Tracy and RN 5. Being Ruled out for COVID DW RN Subjective Subjective Signed the consent for surgery and psych felt she was competent. No CP or SOB. Just had Mobitz type 1 AVB with HR dropping to 45 at 11;01 today Had atrial fib with RVR 130s yesterday. Covid was negative but not off isolation yet Objective Last 24 Hour Vital Signs Date Time Temp Pulse Resp B/P (MAP) Pulse Ox O2 Delivery O2 Flow Rate FiO2 10/21/19 09:28 152/62 10/21/19 09:27 103 152/62 10/21/19 09:00 Nasal Cannula 2.0 10/21/19 08:00 76 10/21/19 08:00 96.8 103 18 152/62 (92) 92 103 10/21/19 04:00 97.9 90 18 146/52 (83) 96 90 10/21/19 04:00 78 10/21/19 03:00 98.7 10/21/19 00:00 98.7 79 18 130/55 (80) 94 79 10/21/19 00:00 79 10/20/19 21:04 100 134/61 10/20/19 21:00 Nasal Cannula 2.0 10/20/19 20:00 99.2 100 18 137/61 (86) 95 100 10/20/19 20:00 109 10/20/19 17:25 137/74 10/20/19 16:00 97.7 81 20 137/74 (95) 100 100 10/20/19 16:00 101 10/20/19 14:34 128/54 Intake and Output 10/20/19 10/21/19 19:00 07:00 Intake Total 120 ml Output Total 200 ml 400 ml Balance -80 ml -400 ml Intake Oral 120 ml Output Urine Total 200 ml 400 ml Laboratory Tests Test 10/21/19 04:00 White Blood Count 8.4 K/UL (4.8-10.8) Red Blood Count 3.92 M/UL (4.20-5.40) L Hemoglobin 10.3 G/DL (12.0-16.0) L Hematocrit 34.8 % (37.0-47.0) L Mean Corpuscular Volume 89 FL (80-99) Mean Corpuscular Hemoglobin 26.2 PG (27.0-31.0) L Mean Corpuscular Hemoglobin Concent 29.5 G/DL (32.0-36.0) L Red Cell Distribution Width 14.4 % (11.6-14.8) Platelet Count 309 K/UL (150-450) Mean Platelet Volume 4.7 FL (6.5-10.1) L Neutrophils (%) (Auto) 67.1 % (45.0-75.0) Lymphocytes (%) (Auto) 15.8 % (20.0-45.0) L Monocytes (%) (Auto) 11.5 % (1.0-10.0) H Eosinophils (%) (Auto) 2.8 % (0.0-3.0) Basophils (%) (Auto) 2.8 % (0.0-2.0) H Sodium Level 130 MMOL/L (136-145) L Potassium Level 3.7 MMOL/L (3.5-5.1) Chloride Level 97 MMOL/L (98-107) L Carbon Dioxide Level 25 MMOL/L (21-32) Anion Gap 8 mmol/L (5-15) Blood Urea Nitrogen 15 mg/dL (7-18) Creatinine 0.6 MG/DL (0.55-1.30) Estimat Glomerular Filtration Rate > 60 mL/min (>60) Glucose Level 187 MG/DL (74-106) H Calcium Level 8.6 MG/DL (8.5-10.1) Microbiology Date/Time Source Procedure Growth Status 10/19/19 02:25 Nasal Nares MRSA Culture - Final NO METHICILLIN RESISTANT STAPH AUREUS... Complete 10/19/19 00:10 Nasopharynx Coronavirus COVID-19 PCR (AURELIO) - Final Complete 10/19/19 02:25 Rectum - Final NO CARBAPENEM-RESISTANT ENTEROBACTERI... Complete 10/19/19 02:25 Rectum VRE Culture - Final Enterococcus Faecalis - Vre Complete Objective HEAD AND NECK: No JVD. LUNGS: Clear. CARDIOVASCULAR: Irregular S1 and S2 with no gallop. ABDOMEN: Soft. EXTREMITIES: No pitting edema. Rajat Zamudio MD Oct 21, 2019 13:00
[2019-10-21] MEDS ORDERED: cloNIDine 1000mcg/10ml inj ONE (13:12)
[2019-10-21] MEDS ORDERED: Bupivacaine 0.5% Inj 30 ml vial INJ ONE (13:12)
[2019-10-21] MEDS ORDERED: EPINEPHrine 1mg/1ml Amp ONE (13:12)
[2019-10-21] MEDS ORDERED: Lidocaine 1% Plain 30 ml INJ ONE (13:21)
[2019-10-21] MEDS ORDERED: Sodium Chloride 10ml vial INJ ONE (13:22)
[2019-10-21] MEDS ORDERED: LR 1000ml 1,000 ML IVLG SCH (13:50)
[2019-10-21] MEDS ORDERED: oxyCODONE HCL/Acetaminophen 5/325mg ORAL PRN (14:00)
[2019-10-21] MEDS ORDERED: Labetalol 5mg/ml 20ml vial IV PRN (14:00)
[2019-10-21] MEDS ORDERED: fentaNYL 100 mcg/2 mL IV PRN (14:00)
[2019-10-21] MEDS ORDERED: LORazepam Inj 2mg/ml 1ml IV PRN (14:00)
[2019-10-21] MEDS ORDERED: Metoclopramide 10mg/2ml Inj IVP PRN (14:00)
[2019-10-21] MEDS ORDERED: Hydromorphone 0.5mg/0.5ml inj IVP PRN (14:00)
[2019-10-21] MEDS ORDERED: Midazolam 2mg/2ml Inj IVP PRN (14:00)
[2019-10-21] MEDS ORDERED: DiphenhydrAMINE 50mg/ml Inj IVP PRN (14:00)
[2019-10-21] MEDS ORDERED: Meperidine 25mg/0.5ml Inj (FOR RIGORS ONLY) IV PRN (14:00)
[2019-10-21] MEDS ORDERED: ePHEDrine 50mg/ml Inj ONE ×2 (14:00→14:14)
[2019-10-21] MEDS ORDERED: HYDROcodone/Acetamin 7.5/325 tab ORAL PRN (14:00)
[2019-10-21] MEDS ORDERED: Atropine Sulfate 0.4mg/ml inj IVP PRN (14:00)
[2019-10-21] MEDS ORDERED: HYDROcodone/Acetamin 5/325 tab ORAL PRN ×2 (14:00→15:15)
--- NOTE | 2019-10-21 14:01 | Anethesia Preoperative Eval ---
Anesthesia Pre-op PMH/ROS General Date of Evaluation: Oct 21, 2019 Time of Evaluation: 13:06 Anesthesiologist: Peace ASA Score: ASA 4 - Emergency Mallampati Score Class I : Soft palate, uvula, fauces, pillars visible Class II: Soft palate, uvula, fauces visible Class III: Soft palate, base of uvula visible Class IV: Only hard plate visible Mallampati Classification: Class III Surgeon: Harish Diagnosis: L Hip Fx Surgical Procedure: ORIF L Hip Anesthesia History: none Family History: no anesthesia problems Allergies: Coded Allergies: No Known Allergies (Unverified , 04/17/19) Medications: see eMAR Patient NPO?: Yes Past Medical History Cardiovascular: Reports: HTN, arrhythmia - AFib, HL Pulmonary: Reports: other - Wheezing Gastrointestinal/Genitourinary: Reports: GERD Neurologic/Psychiatric: Reports: dementia Endocrine: Reports: hypothyroidism Hematology/Immune: Reports: anemia Other: obesity Anesthesia Pre-op Phys. Exam Physician Exam Last Vital Signs Date Time Temp Pulse Resp B/P (MAP) Pulse Ox O2 Delivery O2 Flow Rate FiO2 10/21/19 12:00 97.5 74 20 130/46 (74) 97 103 10/21/19 09:00 Nasal Cannula 2.0 Constitutional: NAD Neurologic: CN 2-12 intact Cardiovascular: RRR Respiratory: other - Wheezing Gastrointestinal: S/NT/ND Airway Exam Mallampati Score: Class III MO: limited ROM: limited Teeth: missing Anesthesia Pre-op A/P Labs Hematology Test 10/21/19 04:00 White Blood Count 8.4 K/UL (4.8-10.8) Red Blood Count 3.92 M/UL (4.20-5.40) L Hemoglobin 10.3 G/DL (12.0-16.0) L Hematocrit 34.8 % (37.0-47.0) L Mean Corpuscular Volume 89 FL (80-99) Mean Corpuscular Hemoglobin 26.2 PG (27.0-31.0) L Mean Corpuscular Hemoglobin Concent 29.5 G/DL (32.0-36.0) L Red Cell Distribution Width 14.4 % (11.6-14.8) Platelet Count 309 K/UL (150-450) Mean Platelet Volume 4.7 FL (6.5-10.1) L Neutrophils (%) (Auto) 67.1 % (45.0-75.0) Lymphocytes (%) (Auto) 15.8 % (20.0-45.0) L Monocytes (%) (Auto) 11.5 % (1.0-10.0) H Eosinophils (%) (Auto) 2.8 % (0.0-3.0) Basophils (%) (Auto) 2.8 % (0.0-2.0) H Chemistry Test 10/21/19 04:00 Sodium Level 130 MMOL/L (136-145) L Potassium Level 3.7 MMOL/L (3.5-5.1) Chloride Level 97 MMOL/L (98-107) L Carbon Dioxide Level 25 MMOL/L (21-32) Anion Gap 8 mmol/L (5-15) Blood Urea Nitrogen 15 mg/dL (7-18) Creatinine 0.6 MG/DL (0.55-1.30) Estimat Glomerular Filtration Rate > 60 mL/min (>60) Glucose Level 187 MG/DL (74-106) H Calcium Level 8.6 MG/DL (8.5-10.1) Risk Assessment & Plan Assessment: ASA 4E Plan: Spinal, GA Status Change Before Surgery: No Pre-Antibiotics Dru Gram Ancef IV Given Within 1 Hr of Incision: Yes Time Given: 13:51 John Hand MD Oct 21, 2019 14:01
--- NOTE | 2019-10-21 14:03 | Immediate Post-Op Evaluation ---
Immediate Post-Op Evalulation Immediate Post-Op Evalulation Procedure: ORIF L Hip Date of Evaluation: Oct 21, 2019 Time of Evaluation: 15:00 IV Fluids: 300 LR Blood Products: 0 Estimated Blood Loss: 10 Urinary Output: 0 Blood Pressure Systolic: 110 Blood Pressure Diastolic: 53 Pulse Rate: 84 Respiratory Rate: 16 O2 Sat by Pulse Oximetry: 98 Temperature (Fahrenheit): 97.4 Pain Score (1-10): 1 Nausea: No Vomiting: No Complications 0 Patient Status: awake, reacts, patent, none Hydration Status: adequate Dru Gram Ancef IV Given Within 1 Hr of Incision: Yes Time Given: 13:51 John Hand MD Oct 21, 2019 14:03
--- NOTE | 2019-10-21 19:18 | Pre-Procedure Note/Attestation ---
Pre-Procedure Note/Attestation Complete Prior to Procedure Planned Procedure: left Procedure Narrative: Left hip nailing Indications for Procedure Pre-Operative Diagnosis: Left hip intertrochanteric fracture Attestation I attest that I discussed the nature of the procedure; its benefits; risks and complications; and alternatives (and the risks and benefits of such alternatives ), prior to the procedure, with the patient (or the patient's legal employer relations representative). I attest that, if there was a reasonable possibility of needing a blood transfusion, the patient (or the patient's legal employer relations representative) was given the [facility] standardized written summary, pursuant to the [place] Blood Safety Act ([place] Health and Safety Code # 1645, as amended). I attest that I re-evaluated the patient just prior to the surgery and that there has been no change in the patient's H&P, except as documented below: Grabiel Moreira MD Oct 21, 2019 19:18
--- NOTE | 2019-10-21 19:19 | Brief Operative Note ---
Immediate Post Operative Note Operative Note Pre-op Diagnosis: Left hip intertrochanteric fracture Procedure: Left hip short nailing Post-op Diagnosis: Left hip fracture Post-op Diagnosis: same as pre-op Findings: consistent w/pre-op dx studies Surgeon: Harish Anesthesiologist: Peace Anesthesia: regional Specimen: none Complications: none Condition: stable Fluids: 50 ml Estimated Blood Loss: minimal Drains: none Implant(s) used?: Yes Grabiel Moreira MD Oct 21, 2019 19:19
--- NOTE | 2019-10-21 19:59 | Consultation ---
DATE OF CONSULTATION: 10/21/2019 ORTHOPEDIC CONSULTATION CONSULTING PHYSICIAN: Grabiel Moreira M.D. REQUESTING PHYSICIAN: Jesus Palomo D.O. DIAGNOSIS: Left hip fracture. HISTORY: The patient is an 89-year-old woman, who slipped and fell. She sustained a left hip fracture. She has chronic heart condition and was evaluated by Cardiology upon admission. She was considered high risk for surgery. The Eliquis was held for surgical consideration. REVIEW OF SYSTEMS: As per history of present illness. PHYSICAL EXAMINATION: She is resting comfortably in bed. Left lower extremity neurovascular examination is grossly intact, though no provocative testing was performed for comfort reasons. Our nurse provided [place]ish interpreting. RADIOGRAPHS: AP pelvis left hip reveal an intertrochanteric displaced hip fracture. ASSESSMENT AND PLAN: The patient sustained a left hip fracture. I have recommended hip nailing. All risks, benefits, alternatives were discussed in great detail. She understands that her cardiac risk is high and therefore, she risks proceeding with surgery. Without surgery, she will not be weightbearing and not able to mobilize. All of those potentially devastating outcomes to follow were reviewed in great detail as well. We will proceed to the operating room straight away. Thank you for the opportunity to consult. Grabiel Moreira M.D. DR: EULA JOB#: [id number] CC:
[2019-10-21] MEDS: D5 1/2NS w/KCl 20mEq 1,000 ML IV SCH (21:40)
[2019-10-21] MEDS: Atorvastatin 20mg tab ORAL SCH (21:40)
[2019-10-22] VITALS (7 sets, daily range): BP systolic 106–170; BP diastolic 51–72
--- NOTE | 2019-10-22 00:29 | Operative Note - Dictated ---
DATE OF OPERATION: 10/21/2019 SURGEON: Grabiel Moreira MD. BATCHER OPERATOR: None. ANESTHESIA: Regional. COMPLICATIONS: None. ANTIBIOTICS: Ancef. ESTIMATED BLOOD LOSS: 10 mL. SPECIMEN SENT: None. PREOPERATIVE DIAGNOSIS: Left displaced intertrochanteric hip fracture. POSTOPERATIVE DIAGNOSIS: Left displaced intertrochanteric hip fracture. PROCEDURE PERFORMED: 1. Left hip short nailing using a [place] gamma trochanteric 11 x 180 mm x 125-degree nail with a 90 mm lag screw and a 32.5 mm distal static locking screw. 2. Fluoroscopic image intensification (15 mm) for fracture reduction and hardware placement. BACKGROUND: The patient slipped and fell. She sustained the above injury. All risks, benefits, and alternatives of surgical intervention were discussed in great detail. Risks included, but were not limited to bleeding, infection, neurovascular injury, need for additional surgical intervention, failure of pain relief, arthrofibrosis, complications of anesthesia, blood clots, stroke, heart attack, and potentially . She understood these risks, amongst others including malrotation, leg length discrepancy, nonunion, and delayed union, and consent was signed after she was found to be competent. PROCEDURE IN DETAIL: The patient was brought into the operating room and placed supine on the operating room table. The left hip was correctly identified for surgical site and prepped and draped in standard sterile fashion. All bony prominences were appropriately padded. Fluoroscopic image intensification revealed appropriate fracture reduction with gentle traction and internal rotation. An incision was created proximal to and in line with the femur. The greater trochanteric tip starting point was obtained and overdrilled. The short nail was secured into position and a center/center hip nail was secured and compressed. A lag screw was used to lock with quarter turn of loosening to allow additional compression. A distal 32.5 mm static locking screw was secured in position. Fluoroscopic image intensification revealed anatomic reduction and appropriate hardware sizing as well as placement. Copious irrigation was utilized throughout the wounds and they were reapproximated using #1 Vicryl, 0 Vicryl, and Monocryl. Steri-Strips were used over Mastisol. Dry sterile dressing was applied. She tolerated the procedure well. There were no complications. I attest I performed the entire operation. She was transferred to recovery in good condition. Grabiel Moreira M.D. DR: Kofi JOB#: [id number] CC:
[2019-10-22 07:03] LABS: BASOPHILS % (AUTO) 1.4 % (0.0-2.0); EOSINOPHILS % (AUTO) 0.6 % (0.0-3.0); HEMATOCRIT 30.7 % (37.0-47.0); HEMOGLOBIN 9.4 G/DL (12.0-16.0); LYMPHOCYTES % (AUTO) 10.8 % (20.0-45.0); MEAN CORPUSCULAR VOLUME 87 FL (80-99); MONOCYTES % (AUTO) 8.5 % (1.0-10.0); NEUTROPHILS % (AUTO) 78.7 % (45.0-75.0); PLATELET COUNT 314 K/UL (150-450); RED BLOOD COUNT 3.55 M/UL (4.20-5.40); RED CELL DISTRIBUTION WIDTH 14.2 % (11.6-14.8); WHITE BLOOD COUNT 9.2 K/UL (4.8-10.8)
[2019-10-22 07:20] LABS: ANION GAP 11 mmol/L (5-15); BLOOD UREA NITROGEN 19 mg/dL (7-18); CALCIUM 8.5 MG/DL (8.5-10.1); CARBON DIOXIDE 24 MMOL/L (21-32); CHLORIDE 98 MMOL/L (98-107); CREATININE 0.8 MG/DL (0.55-1.30); POTASSIUM 3.7 MMOL/L (3.5-5.1); SODIUM 133 MMOL/L (136-145)
--- NOTE | 2019-10-22 07:44 | Consultation ---
DATE OF CONSULTATION: 10/20/2019 HISTORY OF PRESENT ILLNESS: This is an 89-year-old female patient. She came into the hospital status post fall causing a hip fracture and so there was a consultation requested because 00:21 this patient may lack capacity. The patient was refusing to get to the surgery due to concerns of help, so she was requested to get a consultation. I assessed her today in her room with water taxi driver present. The patient is from [facility] and she says " 00:44 if necessary to get my surgery done, I will go ahead and do it." That was the translation from the client account representative, that was her chief 00:56. She appeared alert and oriented on interview x3, originally she came in x4. 01:10 she was considered to be alert and oriented x3, was thought to be alert to situation, but today she seemed to understand that she had hip fracture and understand that she will need surgery 01:22 surgery so she appeared to be okay with the proposed treatment plan. PAST MEDICAL HISTORY: She has GERD, hypothyroidism, atrial fibrillation, CVA, hip fracture, and hypertension. ALLERGIES: She has no known drug allergies. PSYCHOTROPIC MEDICATIONS ON ADMISSION: No current psychotropic medications. SOCIAL HISTORY: The patient lives in [facility]. Financially supported by [employer] and Medicare. No known legal problems. PSYCHIATRIC HISTORY: May be some anxiety and depression per the patient, but no previous psychiatric admissions according to the patient. FAMILY PSYCHIATRIC HISTORY: Denies. SUBSTANCE ABUSE HISTORY: Denies. PAIN ASSESSMENT: 0/10. DEVELOPMENTAL PROBLEMS: Denies. STRENGTHS: She has a place to live and is motivated to get better. WEAKNESSES AND LIABILITIES: She is impulsive and minimal support system. Minimal finances. MENTAL STATUS EXAMINATION: This is an 89-year-old female. Her appearance is disheveled. Attitude, irritable and agitated. Affect, guarded and restricted. Intellect, fair. She knows current events, knows the last four presidents. Mood, depressed and anxious. Motor activity, psychomotor agitation. Attention span is poor because she cannot do serial sevens or spell world backwards. Orientation x4 to person, place, time, and situation. Speech is normal volume, fluent in [place]. Thought process, linear and goal directed. Thought content, denies auditory or visual hallucinations or delusions. No signs of any suicidal or homicidal thoughts. Short-term memory, 3/3 with recall after 5-minute delay with good short-term memory. Long-term memory is intact based on the knowledge of long-term events in life such as high school that she went to. Her gait is normal. No abnormal movements. There is no history of current abuse. 03:27 DIAGNOSES: 1. 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 2. No secondary. 3. Medical, anemia, GERD, hypothyroidism, diabetes, hypertension, CVA, atrial fibrillation. 4. Psychosocial stressors, financial. 5. Functional impairment, moderate. PLAN: I am going to add Namenda 5 mg daily to help this patient prevent any decline in her cognition below baseline 04:38 documentation she has got some confusion earlier during the hospital stay, also I am going to add Ativan 0.5 mg every 6 hours p.r.n. anxiety and agitation. A 20 minutes of cognitive behavioral therapy to help identify automatic negative thoughts to help convert her negative thoughts to more positive thoughts to reduce depression, anxiety, mood lability. Chart reviewed and discussed with staff. Seen and assessed at bedside. Edd Weiner M.D. DR: JENNFIER JOB#: [id number] CC:
[2019-10-22] MEDS: Multivitamin w/Minerals tab ORAL SCH (08:12)
[2019-10-22] MEDS: Eliquis 5mg tablet ORAL SCH (08:12)
[2019-10-22] MEDS: Memantine 10mg tab ORAL SCH (08:12)
[2019-10-22] MEDS: HydrALAZINE 25mg tab ORAL SCH ×2 (08:13→18:00)
[2019-10-22] MEDS: Aspirin Baby 81mg ORAL SCH (08:13)
--- NOTE | 2019-10-22 08:17 | General Progress Note ---
Assessment/Plan Problem List: (1) Troponin level elevated ICD Codes: R79.89 - Other specified abnormal findings of blood chemistry SNOMED: 497287654, 560812379, 150972096 (2) GERD (gastroesophageal reflux disease) ICD Codes: K21.9 - Gastro-esophageal reflux disease without esophagitis SNOMED: 075687119 (3) Hypothyroid ICD Codes: E03.9 - Hypothyroidism, unspecified SNOMED: 64667761 (4) CVA (cerebral vascular accident) ICD Codes: I63.9 - Cerebral infarction, unspecified SNOMED: 789536380 (5) Afib ICD Codes: I48.91 - Unspecified atrial fibrillation SNOMED: 79656934 (6) HTN (hypertension) ICD Codes: I10 - Essential (primary) hypertension SNOMED: 23204380 (7) Fall ICD Codes: W19.XXXA - Unspecified fall, initial encounter SNOMED: 2086636, 997641136 (8) Closed comminuted intertrochanteric fracture of left femur ICD Codes: S72.142A - Displaced intertrochanteric fracture of left femur, initial encounter for closed fracture SNOMED: 715206154, 96414462235566384 Status: unchanged Assessment/Plan: o2 pulm tx pt diet cardio ortho f/u cbc bmp am aru eval Subjective Constitutional: Reports: weakness Allergies: Coded Allergies: No Known Allergies (Unverified , 04/17/19) All Systems: reviewed and negative except above Subjective calm sleepy Objective Last 24 Hour Vital Signs Date Time Temp Pulse Resp B/P (MAP) Pulse Ox O2 Delivery O2 Flow Rate FiO2 10/22/19 08:13 81 131/59 10/22/19 08:13 131/59 10/22/19 07:50 98.4 81 19 131/59 (83) 100 10/22/19 04:00 97.6 107 18 143/66 (91) 98 10/22/19 04:00 115 10/22/19 00:00 97.7 103 18 141/72 (95) 99 10/22/19 00:00 85 10/21/19 21:41 109 147/68 10/21/19 21:00 Nasal Cannula 2.0 10/21/19 20:00 97.5 109 20 147/68 (94) 99 10/21/19 19:02 156/83 10/21/19 16:00 95 10/21/19 15:40 97.5 85 23 114/52 100 Nasal Cannula 3 10/21/19 15:30 89 25 119/50 100 Nasal Cannula 3 10/21/19 15:15 86 20 118/47 100 Nasal Cannula 3 10/21/19 15:05 84 20 125/48 100 Simple Mask 6 85 10/21/19 14:55 86 25 107/54 100 Simple Mask 6 10/21/19 14:50 79 26 116/51 100 Simple Mask 6 10/21/19 14:43 84 16 98 10/21/19 14:42 97.4 77 24 110/53 100 Simple Mask 6 10/21/19 12:00 97.5 74 20 130/46 (74) 97 103 10/21/19 12:00 64 10/21/19 09:28 152/62 10/21/19 09:27 103 152/62 10/21/19 09:00 Nasal Cannula 2.0 Intake and Output 10/21/19 10/22/19 19:00 07:00 Intake Total 500 ml Balance 500 ml IV Total 500 ml # Voids 1 Laboratory Tests 10/22/19 06:25: White Blood Count 9.2, Red Blood Count 3.55L, Hemoglobin 9.4L, Hematocrit 30.7L , Mean Corpuscular Volume 87, Mean Corpuscular Hemoglobin 26.4L, Mean Corpuscular Hemoglobin Concent 30.5L, Red Cell Distribution Width 14.2, Platelet Count 314, Mean Platelet Volume 5.4L, Neutrophils (%) (Auto) 78.7H, Lymphocytes (%) (Auto) 10.8L, Monocytes (%) (Auto) 8.5, Eosinophils (%) (Auto) 0.6, Basophils (%) (Auto) 1.4, Sodium Level 133L, Potassium Level 3.7, Chloride Level 98, Carbon Dioxide Level 24, Anion Gap 11, Blood Urea Nitrogen 19H, Creatinine 0.8, Estimat Glomerular Filtration Rate > 60, Glucose Level 264H, Hemoglobin A1c 7.3H, Calcium Level 8.5, Magnesium Level 1.6L, Thyroid Stimulating Hormone (TSH) 2.333 Height (Feet): 5 Height (Inches): 4.00 Weight (Pounds): 138 General Appearance: lethargic EENT: normal ENT inspection Neck: normal alignment Cardiovascular: normal peripheral pulses, normal rate, regular rhythm Respiratory/Chest: chest wall non-tender, lungs clear, normal breath sounds Abdomen: normal bowel sounds, non tender, soft Extremities: normal inspection Edema: no edema noted Arm (L), no edema noted Arm (R), no edema noted Leg (L), no edema noted Leg (R), no edema noted Pedal (L), no edema noted Pedal (R), no edema noted Generalized Neurologic: motor weakness Skin: normal pigmentation, warm/dry Jesus Palomo DO Oct 22, 2019 08:17
--- NOTE | 2019-10-22 09:49 | 48 Hour Post Anesthesia Eval ---
Post Anesthesia Evaluation Procedure: ORIF L Hip Date of Evaluation: Oct 22, 2019 Time of Evaluation: 09:48 Blood Pressure Systolic: 133 0: 72 Pulse Rate: 66 Respiratory Rate: 18 O2 Sat by Pulse Oximetry: 99 Airway: patent Nausea: No Vomiting: No Hydration Status: adequate Cardiopulmonary Status: stable Mental Status/LOC: patient returned to baseline Follow-up Care/Observations: n/a Post-Anesthesia Complications: none Follow-up care needed: N/A Elvin Adair MD Oct 22, 2019 09:49
[2019-10-22] MEDS: D5 1/2NS w/KCl 20mEq 1,000 ML IV SCH (11:16)
--- NOTE | 2019-10-22 11:40 | Diagnostic Imaging Report ---
INDICATION: Pain, intraoperative TECHNIQUE: Intraoperative imaging Fluoroscopy time: 23.2 seconds Total dose: 0.26900 mGym2 Total number of images: 13 COMPARISON: 10/19/2019 pelvic radiograph FINDINGS: Intraoperative images document surgical repair of previously demonstrated intertrochanteric fracture with medullary susannah and compression screw IMPRESSION: Intraoperative imaging, as described
--- NOTE | 2019-10-22 11:56 | Pulmonology Progress Note ---
Subjective ROS Limited/Unobtainable: No Constitutional: Reports: no symptoms HEENT: Repors: no symptoms Respiratory: Reports: no symptoms Allergies: Coded Allergies: No Known Allergies (Unverified , 04/17/19) All Systems: reviewed and negative except above Objective Last 24 Hour Vital Signs Date Time Temp Pulse Resp B/P (MAP) Pulse Ox O2 Delivery O2 Flow Rate FiO2 10/22/19 09:49 66 18 99 10/22/19 09:00 Nasal Cannula 2.0 10/22/19 08:13 81 131/59 10/22/19 08:13 131/59 10/22/19 08:00 102 10/22/19 07:50 98.4 81 19 131/59 (83) 100 10/22/19 04:00 97.6 107 18 143/66 (91) 98 10/22/19 04:00 115 10/22/19 00:00 97.7 103 18 141/72 (95) 99 10/22/19 00:00 85 10/21/19 21:41 109 147/68 10/21/19 21:00 Nasal Cannula 2.0 10/21/19 20:00 97.5 109 20 147/68 (94) 99 10/21/19 19:02 156/83 10/21/19 16:00 95 10/21/19 15:40 97.5 85 23 114/52 100 Nasal Cannula 3 10/21/19 15:30 89 25 119/50 100 Nasal Cannula 3 10/21/19 15:15 86 20 118/47 100 Nasal Cannula 3 10/21/19 15:05 84 20 125/48 100 Simple Mask 6 85 10/21/19 14:55 86 25 107/54 100 Simple Mask 6 10/21/19 14:50 79 26 116/51 100 Simple Mask 6 10/21/19 14:43 84 16 98 10/21/19 14:42 97.4 77 24 110/53 100 Simple Mask 6 10/21/19 12:00 97.5 74 20 130/46 (74) 97 103 10/21/19 12:00 64 Intake and Output 10/21/19 10/22/19 19:00 07:00 Intake Total 500 ml Balance 500 ml IV Total 500 ml # Voids 1 General Appearance: cachetic HEENT: normocephalic, atraumatic Respiratory: chest wall non-tender, lungs clear, normal breath sounds Cardiovascular: normal peripheral pulses, normal rate Abdomen: normal bowel sounds, soft, non tender Extremities: no clubbing 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: 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 grossly normal Lymphatic: no neck adenopathy Laboratory Tests 10/22/19 06:25: White Blood Count 9.2, Red Blood Count 3.55L, Hemoglobin 9.4L, Hematocrit 30.7L , Mean Corpuscular Volume 87, Mean Corpuscular Hemoglobin 26.4L, Mean Corpuscular Hemoglobin Concent 30.5L, Red Cell Distribution Width 14.2, Platelet Count 314, Mean Platelet Volume 5.4L, Neutrophils (%) (Auto) 78.7H, Lymphocytes (%) (Auto) 10.8L, Monocytes (%) (Auto) 8.5, Eosinophils (%) (Auto) 0.6, Basophils (%) (Auto) 1.4, Sodium Level 133L, Potassium Level 3.7, Chloride Level 98, Carbon Dioxide Level 24, Anion Gap 11, Blood Urea Nitrogen 19H, Creatinine 0.8, Estimat Glomerular Filtration Rate > 60, Glucose Level 264H, Hemoglobin A1c 7.3H, Calcium Level 8.5, Magnesium Level 1.6L, Thyroid Stimulating Hormone (TSH) 2.333 10/22/19 11:42: POC Whole Blood Glucose 245H Current Medications Medications (Trade) Dose Ordered Sig/Lucina Route PRN Reason Start Time Stop Time Status Last Admin Dose Admin Acetaminophen (Tylenol) 325 mg Q4H PRN RECTAL Mild Pain (Pain Scale 1-3) 10/19/19 07:00 11/18/19 06:59 Acetaminophen/ Hydrocodone Bitart ([place] 5/325) 1 tab Q4H PRN ORAL Moderate Pain (Pain Scale 4-6) 10/21/19 15:15 10/28/19 15:14 Apixaban (Eliquis) 5 mg DAILY ORAL 10/19/19 13:39 01/17/20 13:38 10/22/19 08:12 Aspirin (ASA) 81 mg DAILY ORAL 10/19/19 09:00 12/03/19 08:59 10/22/19 08:13 Atorvastatin Calcium (Lipitor) 20 mg BEDTIME ORAL 10/20/19 21:00 01/18/20 20:59 10/21/19 21:40 Dextrose/ Electrolytes 1,000 ml @ 75 mls/hr [id number] IV 10/21/19 20:30 11/20/19 20:29 10/22/19 11:16 Hydralazine HCl (Apresoline) 25 mg BID ORAL 10/20/19 18:00 01/17/20 07:29 10/22/19 08:13 Levothyroxine Sodium (Synthroid) 75 mcg DAILY@0630 ORAL 10/19/19 07:30 11/18/19 07:29 10/22/19 05:56 Lorazepam (Ativan) 0.5 mg Q6H PRN ORAL For Anxiety 10/21/19 05:15 10/28/19 05:14 Memantine (Namenda) 5 mg DAILY ORAL 10/21/19 09:00 11/20/19 08:59 10/22/19 08:12 Metoprolol Tartrate (Lopressor) 25 mg Q12HR ORAL 10/20/19 21:00 01/18/20 20:59 10/22/19 08:13 Morphine Sulfate (Morphine Sulfate) 2 mg Q4H PRN IVP Moderate Pain (Pain Scale 4-6) 10/19/19 03:45 10/26/19 03:44 10/21/19 02:30 Multivitamins Therapeutic (Therapeutic Multivitamin) 1 ea DAILY ORAL 10/19/19 09:00 11/18/19 08:59 10/22/19 08:12 Nitroglycerin (Ntg) 0.4 mg Q5M PRN SL Prn Chest Pain 10/19/19 07:00 11/18/19 06:59 Assessment/Plan Problems: (1) Closed comminuted intertrochanteric fracture of left femur (2) Chronic atrial fibrillation (3) Chronic anticoagulation (4) History of CVA (cerebrovascular accident) (5) GERD (gastroesophageal reflux disease) (6) Hypothyroid Assessment/Plan tolerated the surgery very well heart rate controlled, sinus with PAC, and episodes of afib resume anticoagulation dvt prophylaxis pain management Obey Daniel MD Oct 22, 2019 11:56
[2019-10-22 13:05] LABS: INR 1.1 (0.9-1.1)
[2019-10-22 13:08] LABS: LACTATE DEHYDROGENASE 254 U/L (81-234)
[2019-10-22 13:33] LABS: % IRON SATURATION 9 % (15-50); IRON 26 ug/dL (50-175); TOTAL IRON BINDING CAPACITY 288 ug/dL (250-450)
--- NOTE | 2019-10-22 14:38 | Cardiac Electrophysiology PN ---
Assessment/Plan Assessment/Plan 1. Atrial fibrillation with RVR 130s. 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 2. NSTEMI with lateral ischemia. Troponin levels are coming down from 0.33 to 0.2 to 0.1 The patient does not have any chest pain. Already on aspirin 81 mg daily and lopressor 12.5 bid and Lipitor 20. Likely demand ischemia in this 89 year old with atrial fib with RVR and hip Fx. ECho Nl EF Will treat medically. Not a candidate for cardiac cath at this point 3. Hypertension, on hydralazine 25 mg bid and Lopressor 25 bid 4. Status post fall and left hip fracture. S/P surgery by Dr Tracy. Echocardiogram showed Nl EF 60%. 5. Ruled out for COVID BARB RN Subjective Subjective S/P hip surgery yesterday. No CP or SOB. Still has intermittent Mobitz type 1 AVB In SR with occasional PVCs. Covid was negative Objective Last 24 Hour Vital Signs Date Time Temp Pulse Resp B/P (MAP) Pulse Ox O2 Delivery O2 Flow Rate FiO2 10/22/19 12:13 97.7 68 18 106/51 (69) 99 10/22/19 12:00 74 10/22/19 09:49 66 18 99 10/22/19 09:00 Nasal Cannula 2.0 10/22/19 08:13 81 131/59 10/22/19 08:13 131/59 10/22/19 08:00 102 10/22/19 07:50 98.4 81 19 131/59 (83) 100 10/22/19 04:00 97.6 107 18 143/66 (91) 98 10/22/19 04:00 115 10/22/19 00:00 97.7 103 18 141/72 (95) 99 10/22/19 00:00 85 10/21/19 21:41 109 147/68 10/21/19 21:00 Nasal Cannula 2.0 10/21/19 20:00 97.5 109 20 147/68 (94) 99 10/21/19 19:02 156/83 10/21/19 16:00 95 10/21/19 15:40 97.5 85 23 114/52 100 Nasal Cannula 3 10/21/19 15:30 89 25 119/50 100 Nasal Cannula 3 10/21/19 15:15 86 20 118/47 100 Nasal Cannula 3 10/21/19 15:05 84 20 125/48 100 Simple Mask 6 85 10/21/19 14:55 86 25 107/54 100 Simple Mask 6 10/21/19 14:50 79 26 116/51 100 Simple Mask 6 10/21/19 14:43 84 16 98 10/21/19 14:42 97.4 77 24 110/53 100 Simple Mask 6 Intake and Output 10/21/19 10/22/19 19:00 07:00 Intake Total 500 ml Balance 500 ml IV Total 500 ml # Voids 1 Laboratory Tests Test 10/22/19 06:25 10/22/19 11:42 10/22/19 12:45 White Blood Count 9.2 K/UL (4.8-10.8) Red Blood Count 3.55 M/UL (4.20-5.40) L Hemoglobin 9.4 G/DL (12.0-16.0) L Hematocrit 30.7 % (37.0-47.0) L Mean Corpuscular Volume 87 FL (80-99) Mean Corpuscular Hemoglobin 26.4 PG (27.0-31.0) L Mean Corpuscular Hemoglobin Concent 30.5 G/DL (32.0-36.0) L Red Cell Distribution Width 14.2 % (11.6-14.8) Platelet Count 314 K/UL (150-450) Mean Platelet Volume 5.4 FL (6.5-10.1) L Neutrophils (%) (Auto) 78.7 % (45.0-75.0) H Lymphocytes (%) (Auto) 10.8 % (20.0-45.0) L Monocytes (%) (Auto) 8.5 % (1.0-10.0) Eosinophils (%) (Auto) 0.6 % (0.0-3.0) Basophils (%) (Auto) 1.4 % (0.0-2.0) Differential Total Cells Counted 100 Neutrophils % (Manual) 81 % (45-75) H Lymphocytes % (Manual) 10 % (20-45) L Monocytes % (Manual) 7 % (1-10) Eosinophils % (Manual) 1 % (0-3) Basophils % (Manual) 1 % (0-2) Band Neutrophils 0 % (0-8) Platelet Estimate Adequate Platelet Morphology Normal Hypochromasia 1+ Anisocytosis 1+ Erythrocyte Sedimentation Rate 64 MM/HR (0-30) H Reticulocyte Count 1.1 % (0.5-2.0) Sodium Level 133 MMOL/L (136-145) L Potassium Level 3.7 MMOL/L (3.5-5.1) Chloride Level 98 MMOL/L (98-107) Carbon Dioxide Level 24 MMOL/L (21-32) Anion Gap 11 mmol/L (5-15) Blood Urea Nitrogen 19 mg/dL (7-18) H Creatinine 0.8 MG/DL (0.55-1.30) Estimat Glomerular Filtration Rate > 60 mL/min (>60) Glucose Level 264 MG/DL (74-106) H Hemoglobin A1c 7.3 % (4.3-6.0) H Calcium Level 8.5 MG/DL (8.5-10.1) Magnesium Level 1.6 MG/DL (1.8-2.4) L Iron Level 26 ug/dL (50-175) L Total Iron Binding Capacity 288 ug/dL (250-450) Percent Iron Saturation 9 % (15-50) L Unsaturated Iron Binding 262 ug/dL (112-346) Lactate Dehydrogenase 254 U/L (81-234) H Vitamin B12 Level 939 PG/ML (193-986) Folate 18.5 NG/ML (8.6-58.9) Thyroid Stimulating Hormone (TSH) 2.333 uiU/mL (0.358-3.740) POC Whole Blood Glucose 245 MG/DL (74-106) H Prothrombin Time 12.5 SEC (9.30-11.50) H Prothromb Time International Ratio 1.1 (0.9-1.1) Activated Partial Thromboplast Time 33 SEC (23-33) Carcinoembryonic Antigen Pending Objective HEAD AND NECK: No JVD. LUNGS: Clear. CARDIOVASCULAR: Irregular S1 and S2 with no gallop. ABDOMEN: Soft. EXTREMITIES: No pitting edema.S/P hip surgery Rajat Zamudio MD Oct 22, 2019 14:38
--- NOTE | 2019-10-22 16:45 | Progress Note ---
DATE: 10/22/2019 SUBJECTIVE: This is an 89-year-old female patient. She came in with hip fracture, but she still has some confusion and altered mental status. Seems as though her cognition has between alert, confused, and disorganized, so she does have some confusion, disorganized thought process. MENTAL STATUS EXAMINATION: This is an 89-year-old female. Her appearance is disheveled. Attitude, irritable and agitated. Affect, guarded and restricted. Intellect poor. Mood, depressed and anxious. Motor activity, psychomotor agitation. Attention span is poor. Orientation x2. Speech is low volume, slurred. Thought process, disorganized, illogical. Insight and judgment is poor. DIAGNOSIS: Major depressive disorder, mild, recurrent with psychotic features. PLAN: For this patient is to treat her with a psychotropic medication regimen consisting of Namenda 5 mg twice a day to prevent any further decline in cognition and Ativan 0.5 mg every 6 hours p.r.n. anxiety and agitation. Twenty minutes of cognitive behavioral therapy provided to help her identify her automatic negative thoughts, help her convert negative thoughts to more positive thoughts to reduce depression, anxiety, and mood lability. Chart reviewed. Discussed with staff. Seen and assessed in her room. Edd Weiner M.D. DR: ALEXA JOB#: [id number] CC:
[2019-10-22] MEDS: NovoLOG Insulin Flexpen SUBQ SCH ×2 (17:01→21:29)
[2019-10-22] MEDS ORDERED: Albuterol/Ipratropium 3ml neb HHN PRN (18:00)
[2019-10-22] MEDS ORDERED: Levalbuterol Inh UD 1.25mg/0.5ml HHN PRN (18:15)
[2019-10-22] MEDS: Atorvastatin 20mg tab ORAL SCH (21:29)
[2019-10-23] VITALS (7 sets, daily range): BP systolic 102–132; BP diastolic 44–74
[2019-10-23] MEDS: D5 1/2NS w/KCl 20mEq 1,000 ML IV SCH ×2 (00:41→12:30)
[2019-10-23] MEDS: Morphine Sulfate 2mg/ml Inj(IV/IM USE ONLY) IVP PRN (01:54)
[2019-10-23] MEDS: NovoLOG Insulin Flexpen SUBQ SCH ×4 (06:30→21:00)
[2019-10-23 07:04] LABS: BASOPHILS % (AUTO) 1.8 % (0.0-2.0); EOSINOPHILS % (AUTO) 0.9 % (0.0-3.0); HEMATOCRIT 27.8 % (37.0-47.0); HEMOGLOBIN 8.6 G/DL (12.0-16.0); LYMPHOCYTES % (AUTO) 18.6 % (20.0-45.0); MEAN CORPUSCULAR VOLUME 87 FL (80-99); MONOCYTES % (AUTO) 9.6 % (1.0-10.0); NEUTROPHILS % (AUTO) 69.1 % (45.0-75.0); PLATELET COUNT 298 K/UL (150-450); RED CELL DISTRIBUTION WIDTH 14.1 % (11.6-14.8); WHITE BLOOD COUNT 8.7 K/UL (4.8-10.8)
[2019-10-23 07:10] LABS: ANION GAP 8 mmol/L (5-15); BLOOD UREA NITROGEN 25 mg/dL (7-18); CALCIUM 8.1 MG/DL (8.5-10.1); CARBON DIOXIDE 24 MMOL/L (21-32); CHLORIDE 100 MMOL/L (98-107); CREATININE 0.9 MG/DL (0.55-1.30); POTASSIUM 4.3 MMOL/L (3.5-5.1); SODIUM 132 MMOL/L (136-145)
--- NOTE | 2019-10-23 07:45 | Diagnostic Imaging Report ---
EXAM: XR Chest, 1 View CLINICAL HISTORY: POST-OP TECHNIQUE: Frontal view of the chest. COMPARISON: Chest radiograph October 19, 2019. FINDINGS/IMPRESSION: Right upper lobe opacity which has increased from October 19, 2019. Correlate for infiltrate. Follow-up chest radiograph recommended. No pleural effusion or pneumothorax. Mild emphysematous changes with chronically increased interstitial markings. The heart is enlarged. The aorta is calcified and tortuous. The tracheobronchial tree is calcified.
[2019-10-23 08:40] LABS: ALANINE AMINOTRANSFERASE 13 U/L (12-78); ALBUMIN 2.5 G/DL (3.4-5.0); ALKALINE PHOSPHATASE 66 U/L (46-116); ASPARTATE AMINO TRANSFERASE 30 U/L (15-37); BILIRUBIN,DIRECT 0.1 MG/DL (0.0-0.3); BILIRUBIN,TOTAL 0.5 MG/DL (0.2-1.0)
[2019-10-23] MEDS: Eliquis 5mg tablet ORAL SCH ×2 (09:00→11:31)
[2019-10-23] MEDS: HydrALAZINE 25mg tab ORAL SCH ×2 (09:00→18:00)
[2019-10-23] MEDS: Memantine 10mg tab ORAL SCH ×2 (09:00→11:31)
[2019-10-23] MEDS: Multivitamin w/Minerals tab ORAL SCH (09:00)
[2019-10-23] MEDS: Aspirin Baby 81mg ORAL SCH ×2 (09:00→11:31)
[2019-10-23] MEDS: cefTRIAXone 1 GM in D5W 55 ML IVPB SCH (09:45)
--- NOTE | 2019-10-23 11:31 | Pulmonology Progress Note ---
Subjective ROS Limited/Unobtainable: No Constitutional: Reports: no symptoms HEENT: Repors: no symptoms Respiratory: Reports: no symptoms Allergies: Coded Allergies: No Known Allergies (Unverified , 04/17/19) All Systems: reviewed and negative except above Objective Last 24 Hour Vital Signs Date Time Temp Pulse Resp B/P (MAP) Pulse Ox O2 Delivery O2 Flow Rate FiO2 10/23/19 08:07 98.2 80 19 102/44 (63) 99 10/23/19 08:00 80 10/23/19 07:06 100 Nasal Cannula 2.0 28 10/23/19 07:05 98 20 100 Nasal Cannula 2.0 28 10/23/19 06:20 99.6 10/23/19 04:00 100.6 86 27 109/46 (67) 97 10/23/19 04:00 82 10/23/19 02:21 100.6 10/23/19 01:20 100.5 10/23/19 00:40 101.5 91 28 118/54 (75) 95 10/23/19 00:00 85 10/22/19 22:00 99.5 10/22/19 21:29 100 170/66 10/22/19 21:00 99.8 10/22/19 21:00 Nasal Cannula 2.0 Nasal Cannula 2.0 10/22/19 20:30 99.9 118 20 170/66 (100) 98 10/22/19 20:14 100 20 99 Nasal Cannula 2.0 28 10/22/19 20:06 101 20 99 Nasal Cannula 2.0 28 10/22/19 20:04 99 Nasal Cannula 2.0 28 10/22/19 20:04 101 20 99 Nasal Cannula 2.0 28 10/22/19 20:00 116 10/22/19 16:37 80 10/22/19 16:00 96.7 74 20 108/61 (77) 100 10/22/19 12:13 97.7 68 18 106/51 (69) 99 10/22/19 12:00 74 Intake and Output 10/22/19 10/23/19 19:00 07:00 Intake Total 120 ml Output Total 600 ml Balance -480 ml Intake Oral 120 ml Output Urine Total 600 ml # Voids 3 2 General Appearance: cachetic HEENT: normocephalic, atraumatic Respiratory: chest wall non-tender, lungs clear, normal breath sounds Cardiovascular: normal peripheral pulses, normal rate Abdomen: normal bowel sounds, soft, non tender Extremities: no clubbing 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 normal Lymphatic: no neck adenopathy Laboratory Tests 10/22/19 11:42: POC Whole Blood Glucose 245H 10/22/19 12:45: Prothrombin Time 12.5H, Prothromb Time International Ratio 1.1, Activated Partial Thromboplast Time 33, Carcinoembryonic Antigen 2.2 10/22/19 14:39: Troponin I 6.130H 10/22/19 20:18: POC Whole Blood Glucose 326H 10/23/19 05:30: Magnesium Level 1.8, Total Bilirubin 0.5, Direct Bilirubin 0.1, Aspartate Amino Transf (AST/SGOT) 30, Alanine Aminotransferase (ALT/SGPT) 13, Alkaline Phosphatase 66, Total Protein 5.9L, Albumin 2.5L 10/23/19 05:31: White Blood Count 8.7, Red Blood Count 3.20L, Hemoglobin 8.6L, Hematocrit 27.8L , Mean Corpuscular Volume 87, Mean Corpuscular Hemoglobin 26.8L, Mean Corpuscular Hemoglobin Concent 30.8L, Red Cell Distribution Width 14.1, Platelet Count 298, Mean Platelet Volume 4.9L, Neutrophils (%) (Auto) 69.1, Lymphocytes (%) (Auto) 18.6L, Monocytes (%) (Auto) 9.6, Eosinophils (%) (Auto) 0.9, Basophils (%) (Auto) 1.8, Sodium Level 132L, Potassium Level 4.3, Chloride Level 100, Carbon Dioxide Level 24, Anion Gap 8, Blood Urea Nitrogen 25H, Creatinine 0.9, Estimat Glomerular Filtration Rate 59.2, Glucose Level 229H, Calcium Level 8.1L 10/23/19 06:34: Arterial Blood pH 7.399, Arterial Blood Partial Pressure CO2 35.0, Arterial Blood Partial Pressure O2 95.9, Arterial Blood HCO3 21.1L, Arterial Blood Oxygen Saturation 97.2, Arterial Blood Base Excess -3.2L, Clemente Test Positive Current Medications Medications (Trade) Dose Ordered Sig/Lucina Route PRN Reason Start Time Stop Time Status Last Admin Dose Admin Acetaminophen (Tylenol) 325 mg Q4H PRN RECTAL Mild Pain (Pain Scale 1-3) 10/19/19 07:00 11/18/19 06:59 10/23/19 01:51 Acetaminophen/ Hydrocodone Bitart ([place] 5/325) 1 tab Q4H PRN ORAL Moderate Pain (Pain Scale 4-6) 10/21/19 15:15 10/28/19 15:14 Apixaban (Eliquis) 5 mg DAILY ORAL 10/19/19 13:39 01/17/20 13:38 10/22/19 08:12 Aspirin (ASA) 81 mg DAILY ORAL 10/19/19 09:00 12/03/19 08:59 10/22/19 08:13 Atorvastatin Calcium (Lipitor) 20 mg BEDTIME ORAL 10/20/19 21:00 01/18/20 20:59 10/22/19 21:29 Ceftriaxone Sodium 1 gm/ Dextrose 55 ml @ 110 mls/hr Q24H IVPB 10/23/19 09:00 10/30/19 08:59 10/23/19 09:45 Dextrose (Dextrose 50%) 25 ml Q30M PRN IV Hypoglycemia 10/22/19 12:00 01/20/20 11:59 Dextrose (Dextrose 50%) 50 ml Q30M PRN IV Hypoglycemia 10/22/19 12:00 01/20/20 11:59 Dextrose/ Electrolytes 1,000 ml @ 75 mls/hr [id number] IV 10/21/19 20:30 11/20/19 20:29 10/23/19 00:41 Hydralazine HCl (Apresoline) 25 mg BID ORAL 10/20/19 18:00 01/17/20 07:29 10/22/19 08:13 Insulin Aspart (NovoLOG) BEFORE MEALS AND HS SUBQ 10/22/19 16:30 01/20/20 16:29 10/22/19 21:29 Levalbuterol HCl (Xopenex) 1.25 mg Q4H PRN HHN Shortness of Breath 10/22/19 18:15 10/27/19 18:14 10/22/19 20:04 Levothyroxine Sodium (Synthroid) 75 mcg DAILY@0630 ORAL 10/19/19 07:30 11/18/19 07:29 10/22/19 05:56 Lorazepam (Ativan) 0.5 mg Q6H PRN ORAL For Anxiety 10/21/19 05:15 10/28/19 05:14 Memantine (Namenda) 5 mg DAILY ORAL 10/21/19 09:00 11/20/19 08:59 10/22/19 08:12 Metoprolol Tartrate (Lopressor) 25 mg Q12HR ORAL 10/20/19 21:00 01/18/20 20:59 10/22/19 21:29 Morphine Sulfate (Morphine Sulfate) 2 mg Q4H PRN IVP Moderate Pain (Pain Scale 4-6) 10/19/19 03:45 10/26/19 03:44 10/23/19 01:54 Multivitamins Therapeutic (Therapeutic Multivitamin) 1 ea DAILY ORAL 10/19/19 09:00 11/18/19 08:59 10/22/19 08:12 Nitroglycerin (Ntg) 0.4 mg Q5M PRN SL Prn Chest Pain 10/19/19 07:00 11/18/19 06:59 Assessment/Plan Problems: (1) Nosocomial pneumonia (2) Closed comminuted intertrochanteric fracture of left femur (3) Chronic atrial fibrillation (4) Chronic anticoagulation (5) History of CVA (cerebrovascular accident) (6) GERD (gastroesophageal reflux disease) (7) Hypothyroid Assessment/Plan cxr reviewed: will get a CT scan to have a closer and detailed look at the RUL infiltrate. still febrile, wbc wnl heart rate controlled, sinus with PAC, and episodes of afib ID consult requested. continue Ceftriaxone for now dvt prophylaxis pain management Obey Daniel MD Oct 23, 2019 11:31
--- NOTE | 2019-10-23 13:26 | General Progress Note ---
Assessment/Plan Problem List: (1) Troponin level elevated ICD Codes: R79.89 - Other specified abnormal findings of blood chemistry SNOMED: 101139463, 917448064, 831356559 (2) GERD (gastroesophageal reflux disease) ICD Codes: K21.9 - Gastro-esophageal reflux disease without esophagitis SNOMED: 507044656 (3) Hypothyroid ICD Codes: E03.9 - Hypothyroidism, unspecified SNOMED: 61239859 (4) HTN (hypertension) ICD Codes: I10 - Essential (primary) hypertension SNOMED: 45862487 (5) Closed comminuted intertrochanteric fracture of left femur ICD Codes: S72.142A - Displaced intertrochanteric fracture of left femur, initial encounter for closed fracture SNOMED: 603220699, [id number] Status: stable, progressing Assessment/Plan: o2 pulm tx pt diet cardio ortho f/u cbc bmp am dc to aru if clear by all Subjective Constitutional: Reports: weakness Allergies: Coded Allergies: No Known Allergies (Unverified , 04/17/19) All Systems: reviewed and negative except above Subjective calm sleepy Objective Last 24 Hour Vital Signs Date Time Temp Pulse Resp B/P (MAP) Pulse Ox O2 Delivery O2 Flow Rate FiO2 10/23/19 12:00 87 10/23/19 12:00 97.8 69 20 104/59 (74) 100 10/23/19 09:00 Nasal Cannula 2.0 Nasal Cannula 2.0 10/23/19 08:07 98.2 80 19 102/44 (63) 99 10/23/19 08:00 80 10/23/19 07:06 100 Nasal Cannula 2.0 28 10/23/19 07:05 98 20 100 Nasal Cannula 2.0 28 10/23/19 06:20 99.6 10/23/19 04:00 100.6 86 27 109/46 (67) 97 10/23/19 04:00 82 10/23/19 02:21 100.6 10/23/19 01:20 100.5 10/23/19 00:40 101.5 91 28 118/54 (75) 95 10/23/19 00:00 85 10/22/19 22:00 99.5 10/22/19 21:29 100 170/66 10/22/19 21:00 99.8 10/22/19 21:00 Nasal Cannula 2.0 Nasal Cannula 2.0 10/22/19 20:30 99.9 118 20 170/66 (100) 98 10/22/19 20:14 100 20 99 Nasal Cannula 2.0 28 10/22/19 20:06 101 20 99 Nasal Cannula 2.0 28 10/22/19 20:04 99 Nasal Cannula 2.0 28 10/22/19 20:04 101 20 99 Nasal Cannula 2.0 28 10/22/19 20:00 116 10/22/19 16:37 80 10/22/19 16:00 96.7 74 20 108/61 (77) 100 Intake and Output 10/22/19 10/23/19 19:00 07:00 Intake Total 120 ml Output Total 600 ml Balance -480 ml Intake Oral 120 ml Output Urine Total 600 ml # Voids 3 2 Laboratory Tests 10/22/19 14:39: Troponin I 6.130H 10/22/19 20:18: POC Whole Blood Glucose 326H 10/23/19 05:30: Troponin I 2.558H, Magnesium Level 1.8, Total Bilirubin 0.5, Direct Bilirubin 0.1, Aspartate Amino Transf (AST/SGOT) 30, Alanine Aminotransferase (ALT/SGPT) 13, Alkaline Phosphatase 66, Total Protein 5.9L, Albumin 2.5L 10/23/19 05:31: White Blood Count 8.7, Red Blood Count 3.20L, Hemoglobin 8.6L, Hematocrit 27.8L , Mean Corpuscular Volume 87, Mean Corpuscular Hemoglobin 26.8L, Mean Corpuscular Hemoglobin Concent 30.8L, Red Cell Distribution Width 14.1, Platelet Count 298, Mean Platelet Volume 4.9L, Neutrophils (%) (Auto) 69.1, Lymphocytes (%) (Auto) 18.6L, Monocytes (%) (Auto) 9.6, Eosinophils (%) (Auto) 0.9, Basophils (%) (Auto) 1.8, Sodium Level 132L, Potassium Level 4.3, Chloride Level 100, Carbon Dioxide Level 24, Anion Gap 8, Blood Urea Nitrogen 25H, Creatinine 0.9, Estimat Glomerular Filtration Rate 59.2, Glucose Level 229H, Calcium Level 8.1L 10/23/19 06:34: Arterial Blood pH 7.399, Arterial Blood Partial Pressure CO2 35.0, Arterial Blood Partial Pressure O2 95.9, Arterial Blood HCO3 21.1L, Arterial Blood Oxygen Saturation 97.2, Arterial Blood Base Excess -3.2L, Clemente Test Positive Height (Feet): 5 Height (Inches): 4.00 Weight (Pounds): 138 General Appearance: lethargic EENT: normal ENT inspection Neck: normal alignment Cardiovascular: normal rate, regular rhythm Respiratory/Chest: no respiratory distress, no accessory muscle use Extremities: normal inspection Skin: normal pigmentation Jesus Palomo DO Oct 23, 2019 13:26
--- NOTE | 2019-10-23 14:10 | Consultation ---
History of Present Illness General Date patient seen: Oct 23, 2019 Chief Complaint: Multiple Trauma/Fall Referring physician: Dr Palomo Reason for Consultation: pulm/in hospital care Present Illness HPI 89 y/o F with hx of GERD, MDD, hypothyridism, AFib, CVA, hip fracture, HTN, [place] resident ( [facility]) presented to ED on 10/19/19 after a fall. She slipped on wet floor hitting her left buttock on the ground. Denied head trauma or loss of consciousness. Upon admission was diagnosed with an intertrochanteric displaced hip fracture. Denied CP, SOB, NOVAK, focal weakness, abd pain, n /v. Left displaced intertrochanteric hip fracture. -10/21 SP L hip nailing Allergies: Coded Allergies: No Known Allergies (Unverified , 04/17/19) Medication History Scheduled Aspirin* (Aspirin*), 81 MG ORAL DAILY, (Reported) Docusate Sodium* (Docusate Sodium*), 100 MG ORAL THREE TIMES A DAY, (Reported) Hydralazine Hcl* (Hydralazine Hcl*), 50 MG ORAL EVERY 8 HOURS, (Reported) Ibuprofen (Motrin), 600 MG ORAL FOUR TIMES A DAY, (Reported) Levothyroxine Sodium* (Levothyroxine Sodium*), 75 MCG ORAL DAILY, (Reported) Scheduled PRN Acetaminophen* (Acetaminophen 325MG Tablet*), 325 MG ORAL Q4H PRN for MILD PAIN, (Reported) Nitroglycerin 0.4MG table* (Nitroglycerin*), 0.4 MG SL Q5M PRN Miscellaneous Medications Apixaban (Eliquis), 5 MG PO, (Reported) Loperamide Hcl (Imodium A-D), 1 MG PO, (Reported) Mag Hydrox/Aluminum Hyd/Simeth (Mylanta Maximum Strength Liq), 355 ML PO, ( Reported) Patient History Healthcare decision maker Resuscitation status Advanced Directive on File Patient History Narrative Pmhx: as above Shx: She lives in care home. Does not smoke or drink alcohol. Fhx: non contributory Review of Systems All Other Systems: negative except mentioned in HPI Physical Exam Physical Exam Narrative GENERAL: Calm in bed, O2 NC, slightly weak. Not responding to questions. GENERAL: Lethargic, sleepy. HEENT: Normocephalic and atraumatic. NECK: Trachea midline. CARDIOVASCULAR: No peripheral edema. LUNGS: Slight short of breath, on O2 nasal cannula. ABDOMEN: No apparent wound. EXTREMITIES: Show no cyanosis or clubbing Last 24 Hour Vital Signs Date Time Temp Pulse Resp B/P (MAP) Pulse Ox O2 Delivery O2 Flow Rate FiO2 10/23/19 12:00 87 10/23/19 12:00 97.8 69 20 104/59 (74) 100 10/23/19 09:00 Nasal Cannula 2.0 Nasal Cannula 2.0 10/23/19 08:07 98.2 80 19 102/44 (63) 99 10/23/19 08:00 80 10/23/19 07:06 100 Nasal Cannula 2.0 28 10/23/19 07:05 98 20 100 Nasal Cannula 2.0 28 10/23/19 06:20 99.6 10/23/19 04:00 100.6 86 27 109/46 (67) 97 10/23/19 04:00 82 10/23/19 02:21 100.6 10/23/19 01:20 100.5 10/23/19 00:40 101.5 91 28 118/54 (75) 95 10/23/19 00:00 85 10/22/19 22:00 99.5 10/22/19 21:29 100 170/66 10/22/19 21:00 99.8 10/22/19 21:00 Nasal Cannula 2.0 Nasal Cannula 2.0 10/22/19 20:30 99.9 118 20 170/66 (100) 98 10/22/19 20:14 100 20 99 Nasal Cannula 2.0 28 10/22/19 20:06 101 20 99 Nasal Cannula 2.0 28 10/22/19 20:04 99 Nasal Cannula 2.0 28 10/22/19 20:04 101 20 99 Nasal Cannula 2.0 28 10/22/19 20:00 116 10/22/19 16:37 80 10/22/19 16:00 96.7 74 20 108/61 (77) 100 Intake and Output 10/22/19 10/23/19 19:00 07:00 Intake Total 120 ml Output Total 600 ml Balance -480 ml Intake Oral 120 ml Output Urine Total 600 ml # Voids 3 2 Laboratory Tests Test 10/22/19 14:39 7/6/20 20:18 10/23/19 05:30 10/23/19 05:31 Troponin I 6.130 ng/mL (0.000-0.056) 2.558 ng/mL (0.000-0.056) POC Whole Blood Glucose 326 MG/DL (74-106) H Magnesium Level 1.8 MG/DL (1.8-2.4) Total Bilirubin 0.5 MG/DL (0.2-1.0) Direct Bilirubin 0.1 MG/DL (0.0-0.3) Aspartate Amino Transf (AST/SGOT) 30 U/L (15-37) Alanine Aminotransferase (ALT/SGPT) 13 U/L (12-78) Alkaline Phosphatase 66 U/L (46-116) Total Protein 5.9 G/DL (6.4-8.2) L Albumin 2.5 G/DL (3.4-5.0) L White Blood Count 8.7 K/UL (4.8-10.8) Red Blood Count 3.20 M/UL (4.20-5.40) L Hemoglobin 8.6 G/DL (12.0-16.0) L Hematocrit 27.8 % (37.0-47.0) L Mean Corpuscular Volume 87 FL (80-99) Mean Corpuscular Hemoglobin 26.8 PG (27.0-31.0) L Mean Corpuscular Hemoglobin Concent 30.8 G/DL (32.0-36.0) L Red Cell Distribution Width 14.1 % (11.6-14.8) Platelet Count 298 K/UL (150-450) Mean Platelet Volume 4.9 FL (6.5-10.1) L Neutrophils (%) (Auto) 69.1 % (45.0-75.0) Lymphocytes (%) (Auto) 18.6 % (20.0-45.0) L Monocytes (%) (Auto) 9.6 % (1.0-10.0) Eosinophils (%) (Auto) 0.9 % (0.0-3.0) Basophils (%) (Auto) 1.8 % (0.0-2.0) Sodium Level 132 MMOL/L (136-145) L Potassium Level 4.3 MMOL/L (3.5-5.1) Chloride Level 100 MMOL/L (98-107) Carbon Dioxide Level 24 MMOL/L (21-32) Anion Gap 8 mmol/L (5-15) Blood Urea Nitrogen 25 mg/dL (7-18) H Creatinine 0.9 MG/DL (0.55-1.30) Estimat Glomerular Filtration Rate 59.2 mL/min (>60) Glucose Level 229 MG/DL (74-106) H Calcium Level 8.1 MG/DL (8.5-10.1) L Test 10/23/19 06:34 Arterial Blood pH 7.399 (7.350-7.450) Arterial Blood Partial Pressure CO2 35.0 mmHg (35.0-45.0) Arterial Blood Partial Pressure O2 95.9 mmHg (75.0-100.0) Arterial Blood HCO3 21.1 mmol/L (22.0-26.0) L Arterial Blood Oxygen Saturation 97.2 % (95-100) Arterial Blood Base Excess -3.2 (-2-2) L Clemente Test Positive Height (Feet): 5 Height (Inches): 4.00 Weight (Pounds): 138 Medications Current Medications Medications (Trade) Dose Ordered Sig/Lucina Route PRN Reason Start Time Stop Time Status Last Admin Dose Admin Acetaminophen (Tylenol) 325 mg Q4H PRN RECTAL Mild Pain (Pain Scale 1-3) 10/19/19 07:00 11/18/19 06:59 10/23/19 01:51 Acetaminophen/ Hydrocodone Bitart ([place] 5/325) 1 tab Q4H PRN ORAL Moderate Pain (Pain Scale 4-6) 10/21/19 15:15 10/28/19 15:14 10/23/19 11:32 Apixaban (Eliquis) 5 mg DAILY ORAL 10/19/19 13:39 01/17/20 13:38 10/23/19 11:31 Aspirin (ASA) 81 mg DAILY ORAL 10/19/19 09:00 12/03/19 08:59 10/23/19 11:31 Atorvastatin Calcium (Lipitor) 20 mg BEDTIME ORAL 10/20/19 21:00 01/18/20 20:59 10/22/19 21:29 Ceftriaxone Sodium 1 gm/ Dextrose 55 ml @ 110 mls/hr Q24H IVPB 10/23/19 09:00 10/30/19 08:59 10/23/19 09:45 Dextrose (Dextrose 50%) 25 ml Q30M PRN IV Hypoglycemia 10/22/19 12:00 01/20/20 11:59 Dextrose (Dextrose 50%) 50 ml Q30M PRN IV Hypoglycemia 10/22/19 12:00 01/20/20 11:59 Dextrose/ Electrolytes 1,000 ml @ 75 mls/hr [id number] IV 10/21/19 20:30 11/20/19 20:29 10/23/19 00:41 Hydralazine HCl (Apresoline) 25 mg BID ORAL 10/20/19 18:00 01/17/20 07:29 10/22/19 08:13 Insulin Aspart (NovoLOG) BEFORE MEALS AND HS SUBQ 10/22/19 16:30 01/20/20 16:29 10/23/19 13:30 Levalbuterol HCl (Xopenex) 1.25 mg Q4H PRN HHN Shortness of Breath 10/22/19 18:15 10/27/19 18:14 10/22/19 20:04 Levothyroxine Sodium (Synthroid) 75 mcg DAILY@0630 ORAL 10/19/19 07:30 11/18/19 07:29 10/22/19 05:56 Lorazepam (Ativan) 0.5 mg Q6H PRN ORAL For Anxiety 10/21/19 05:15 10/28/19 05:14 Memantine (Namenda) 5 mg DAILY ORAL 10/21/19 09:00 11/20/19 08:59 10/23/19 11:31 Metoprolol Tartrate (Lopressor) 25 mg Q12HR ORAL 10/20/19 21:00 01/18/20 20:59 10/22/19 21:29 Morphine Sulfate (Morphine Sulfate) 2 mg Q4H PRN IVP Moderate Pain (Pain Scale 4-6) 10/19/19 03:45 10/26/19 03:44 10/23/19 01:54 Multivitamins Therapeutic (Therapeutic Multivitamin) 1 ea DAILY ORAL 10/19/19 09:00 11/18/19 08:59 10/22/19 08:12 Nitroglycerin (Ntg) 0.4 mg Q5M PRN SL Prn Chest Pain 10/19/19 07:00 11/18/19 06:59 Assessment/Plan Assessment/Plan: Abx: Ceftriaxone 10/22- Assessment: COVID neg x1 Fever- likely post-op and pneumonia (?aspiration) No leukocytosis -10/22 CXR: Right upper lobe opacity which has increased from October 19, 2019. Correlate for infiltrate. Follow-up chest radiograph recommended. No pleural effusion or pneumothorax. Mild emphysematous changes with chronically increased interstitial markings.The heart is enlarged. The aorta is calcified and tortuous. The tracheobronchial tree is calcified. -10/18 SARS-COV2 PCR neg SP fall Left displaced intertrochanteric hip fracture. -10/21 SP L hip nailing -CT pelvis: Comminuted left femoral intertrochanteric fracture. Deformity of the right superior and inferior pubic rami, likely due to old fracture. -hip xray: Comminuted left femoral intertrochanteric fracture. -CT head: no acute findings GERD MDD hypothyridism AFib CVA hip fracture HTN [place] resident ( [facility]) Plan: -Continue Ceftriaxone #1 -f/u cx -Monitor CBC/CMP, temperatures -u/a w/ reflex, Bcx, sp cx -CT chest and 2nd COVID ordered by pulm; keep COVID isolation -aspiration precautions -wound care per ortho team -Ortho, pulm f/u Thank you for this consultation. Will continue to follow along with you. Discussed with Vida Beaver M.D. Oct 23, 2019 14:09
--- NOTE | 2019-10-23 16:29 | Cardiac Electrophysiology PN ---
Assessment/Plan Assessment/Plan 1. Atrial fibrillation with RVR 130s. 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 2. NSTEMI with lateral ischemia. Troponin levels werw 0.33 to 0.2 to 0.1 Post op troponin went up to 6 and then down to 2.5 today The patient does not have any chest pain. Will treat medically with aspirin 81 mg daily and lopressor 25 bid and Lipitor 20. Likely demand ischemia in this 89 year old with atrial fib with RVR and hip Fx. Echo Nl EF 3. Hypertension, on hydralazine 25 mg bid and Lopressor 25 bid 4. Status post fall and left hip fracture. S/P surgery by Dr Tracy. Echocardiogram showed Nl EF 60%. 5. Fever, Being Ruled out for COVID again DW RN Subjective Subjective S/P hip surgery 10/21/19. Still has intermittent Mobitz type 1 AVB In SR with occasional PVCs. Was febrile and SOB and Covid was repeated Objective Last 24 Hour Vital Signs Date Time Temp Pulse Resp B/P (MAP) Pulse Ox O2 Delivery O2 Flow Rate FiO2 10/23/19 12:00 87 10/23/19 12:00 97.8 69 20 104/59 (74) 100 10/23/19 09:00 Nasal Cannula 2.0 Nasal Cannula 2.0 10/23/19 08:07 98.2 80 19 102/44 (63) 99 10/23/19 08:00 80 10/23/19 07:06 100 Nasal Cannula 2.0 28 10/23/19 07:05 98 20 100 Nasal Cannula 2.0 28 10/23/19 06:20 99.6 10/23/19 04:00 100.6 86 27 109/46 (67) 97 10/23/19 04:00 82 10/23/19 02:21 100.6 10/23/19 01:20 100.5 10/23/19 00:40 101.5 91 28 118/54 (75) 95 10/23/19 00:00 85 10/22/19 22:00 99.5 10/22/19 21:29 100 170/66 10/22/19 21:00 99.8 10/22/19 21:00 Nasal Cannula 2.0 Nasal Cannula 2.0 10/22/19 20:30 99.9 118 20 170/66 (100) 98 10/22/19 20:14 100 20 99 Nasal Cannula 2.0 28 10/22/19 20:06 101 20 99 Nasal Cannula 2.0 28 10/22/19 20:04 99 Nasal Cannula 2.0 28 10/22/19 20:04 101 20 99 Nasal Cannula 2.0 28 10/22/19 20:00 116 10/22/19 16:37 80 Intake and Output 10/22/19 10/23/19 19:00 07:00 Intake Total 120 ml Output Total 600 ml Balance -480 ml Intake Oral 120 ml Output Urine Total 600 ml # Voids 3 2 Laboratory Tests Test 10/22/19 20:18 10/23/19 05:30 10/23/19 05:31 10/23/19 06:34 POC Whole Blood Glucose 326 MG/DL (74-106) H Magnesium Level 1.8 MG/DL (1.8-2.4) Total Bilirubin 0.5 MG/DL (0.2-1.0) Direct Bilirubin 0.1 MG/DL (0.0-0.3) Aspartate Amino Transf (AST/SGOT) 30 U/L (15-37) Alanine Aminotransferase (ALT/SGPT) 13 U/L (12-78) Alkaline Phosphatase 66 U/L (46-116) Troponin I 2.558 ng/mL (0.000-0.056) Total Protein 5.9 G/DL (6.4-8.2) L Albumin 2.5 G/DL (3.4-5.0) L White Blood Count 8.7 K/UL (4.8-10.8) Red Blood Count 3.20 M/UL (4.20-5.40) L Hemoglobin 8.6 G/DL (12.0-16.0) L Hematocrit 27.8 % (37.0-47.0) L Mean Corpuscular Volume 87 FL (80-99) Mean Corpuscular Hemoglobin 26.8 PG (27.0-31.0) L Mean Corpuscular Hemoglobin Concent 30.8 G/DL (32.0-36.0) L Red Cell Distribution Width 14.1 % (11.6-14.8) Platelet Count 298 K/UL (150-450) Mean Platelet Volume 4.9 FL (6.5-10.1) L Neutrophils (%) (Auto) 69.1 % (45.0-75.0) Lymphocytes (%) (Auto) 18.6 % (20.0-45.0) L Monocytes (%) (Auto) 9.6 % (1.0-10.0) Eosinophils (%) (Auto) 0.9 % (0.0-3.0) Basophils (%) (Auto) 1.8 % (0.0-2.0) Sodium Level 132 MMOL/L (136-145) L Potassium Level 4.3 MMOL/L (3.5-5.1) Chloride Level 100 MMOL/L (98-107) Carbon Dioxide Level 24 MMOL/L (21-32) Anion Gap 8 mmol/L (5-15) Blood Urea Nitrogen 25 mg/dL (7-18) H Creatinine 0.9 MG/DL (0.55-1.30) Estimat Glomerular Filtration Rate 59.2 mL/min (>60) Glucose Level 229 MG/DL (74-106) H Calcium Level 8.1 MG/DL (8.5-10.1) L Arterial Blood pH 7.399 (7.350-7.450) Arterial Blood Partial Pressure CO2 35.0 mmHg (35.0-45.0) Arterial Blood Partial Pressure O2 95.9 mmHg (75.0-100.0) Arterial Blood HCO3 21.1 mmol/L (22.0-26.0) L Arterial Blood Oxygen Saturation 97.2 % (95-100) Arterial Blood Base Excess -3.2 (-2-2) L Clemente Test Positive Objective HEAD AND NECK: No JVD. LUNGS: Clear. CARDIOVASCULAR: Irregular S1 and S2 with no gallop. ABDOMEN: Soft. EXTREMITIES: No pitting edema.S/P hip surgery Rajat Zamudio MD Oct 23, 2019 16:29
[2019-10-23] MEDS: Docusate 100mg cap ORAL SCH (18:00)
[2019-10-23] MEDS: Atorvastatin 20mg tab ORAL SCH (20:10)
--- NOTE | 2019-10-23 22:45 | Progress Note ---
DATE: 10/23/2019 SUBJECTIVE: This is a female patient. She is 89 years old. Patient has a hip fracture, but she has got altered mental status, confusion, decline in cognition below baseline, worsened by stress of her medical illness. That is why attending physician has requested daily psychiatric consultation at this time. She has got hypertension. She has got GERD. She has got pneumonia, respiratory insufficiency, status post CVA, decline in cognition below her baseline. MENTAL STATUS EXAMINATION: An 89-year-old female. Appearance is disheveled. Attitude irritable and agitated. Affect restricted. Intellect poor. Mood depressed and anxious. Motor activity, psychomotor agitation. Attention span poor. Orientation x2. Speech is low volume, slurred. Thought process disorganized and illogical. Insight and judgment are poor. DIAGNOSIS: Major depressive disorder, mild, recurrent with psychotic features. Rule out dementia with psychosis. PLAN: My plan for this patient is to treat her with a psychotropic medication regimen consisting of Namenda at a dose of 5 mg daily to prevent any further decline in her cognition and Ativan 0.5 mg every 6 hours p.r.n. anxiety, agitation. She will continue to be followed by Psychiatry throughout hospital course. Insight-oriented psychotherapy for 20 minutes to help her recognize her psychiatric disorder and help her have a better understanding of her physical and medical condition so that she has better impulse control, less depression, anxiety. Chart was reviewed. Discussed with staff. Patient was seen and assessed in her room. Edd Weiner M.D. DR: LIZBETH JOB#: [id number] CC:
[2019-10-24] MEDS: D5 1/2NS w/KCl 20mEq 1,000 ML IV SCH ×2 (01:50→12:00)
--- NOTE | 2019-10-24 03:14 | Progress Note ---
DATE: 10/22/2019 PSYCHOTHERAPY CONSULTATION PROGRESS NOTE CONSULTING PHYSICIAN: Sammie Jean PsyD. TREATING ATTENDING PHYSICIAN: Jesus Palomo DO. HISTORY OF PRESENT ILLNESS: The patient is a female patient. She is 89 years old. She was brought in to the hospital for hip fracture where she has been disorganized, confused, and agitated, and for these reasons, she was referred for psychotherapeutic services. When I talked to the patient, she states that she was at home. She states she the patient has been extremely confused, mumbling, disorganized, and any logical or viable plan for self-care at this time. There is no indication of suicidal or homicidal thoughts of ideation. Even with an intraoperative therapy, the patient is unable to logical sentence. The patient when she is home. She has been very disorganized at this time. PAST MEDICAL HISTORY: Includes a history of GERD, hypothyroidism, CVA, AFib, and hypertension. ALLERGIES: The patient has no known drug allergies. SUBSTANCE ABUSE HISTORY: There is no indication of alcohol use or illicit substance use. . PSYCHIATRIC HISTORY: The patient has a positive history of depression, also it is unclear at this time. SOCIAL HISTORY: The patient is an 89-year-old single female patient . Financially sustained through [employer]. MENTAL STATUS EXAMINATION: She is alert, oriented to person and place. Her mood is anxious. Affect labile. Thought processes, disorganized. She has poor attention and concentration. Poor insight, judgment, and impulse control. DIAGNOSES: 1. 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 2. hypertension. 3. Psychosocial stressors are moderate. I ASSESSED THE PATIENT AND PROVIDED THE PATIENT WITH: 4. Reality orientation, which is focused on improving the cognitive function of the patient, who is very confused and disorganized. Oriented to person, place, time, and situation. 5. Provided the patient with supportive psychotherapy. The patient has stable positive thoughts and positive communication skills. Encouraging the patient to participate in treatment milieu as well as with medication regimen. PLAN: Plan is to maintain medication compliance with use of positive coping skills in stabilizing the thoughts and behaviors. Psychotherapy services for this patient is 45 minutes. This clinician has reviewed the patient's chart and discussed the treatment with treatment team. Sammie Jean PsyD. DR: SKY JOB#: [id number] CC:
[2019-10-24] MEDS: NovoLOG Insulin Flexpen SUBQ SCH ×4 (06:30→20:48)
[2019-10-24] MEDS: Morphine Sulfate 2mg/ml Inj(IV/IM USE ONLY) IVP PRN ×2 (06:46→11:29)
[2019-10-24 08:00] VITALS: BP 132/52
--- NOTE | 2019-10-24 08:15 | General Progress Note ---
Assessment/Plan Problem List: (1) Troponin level elevated ICD Codes: R79.89 - Other specified abnormal findings of blood chemistry SNOMED: 175754513, 156043443, 171497360 (2) GERD (gastroesophageal reflux disease) ICD Codes: K21.9 - Gastro-esophageal reflux disease without esophagitis SNOMED: 249387726 (3) Hypothyroid ICD Codes: E03.9 - Hypothyroidism, unspecified SNOMED: 98124493 (4) HTN (hypertension) ICD Codes: I10 - Essential (primary) hypertension SNOMED: 17723180 (5) Closed comminuted intertrochanteric fracture of left femur ICD Codes: S72.142A - Displaced intertrochanteric fracture of left femur, initial encounter for closed fracture SNOMED: 502820509, [id number] Status: stable, progressing Assessment/Plan: o2 pulm tx pt diet cardio ortho f/u cbc bmp am dc to aru if clear by all Subjective Constitutional: Reports: weakness Allergies: Coded Allergies: No Known Allergies (Unverified , 04/17/19) All Systems: reviewed and negative except above Subjective o2nc calm sleepy Objective Last 24 Hour Vital Signs Date Time Temp Pulse Resp B/P (MAP) Pulse Ox O2 Delivery O2 Flow Rate FiO2 10/24/19 08:00 98.8 88 20 132/52 (78) 96 10/24/19 07:16 98.7 10/24/19 00:00 93 10/23/19 23:41 98.7 88 22 132/55 (80) 99 10/23/19 22:40 99 Nasal Cannula 2.0 28 10/23/19 22:40 95 20 99 Nasal Cannula 2.0 28 10/23/19 20:00 87 10/23/19 20:00 98.3 92 21 111/52 (71) 99 10/23/19 18:00 108/74 10/23/19 16:00 96.8 84 18 108/74 (85) 96 10/23/19 16:00 86 10/23/19 12:00 87 10/23/19 12:00 97.8 69 20 104/59 (74) 100 10/23/19 09:00 Nasal Cannula 2.0 Nasal Cannula 2.0 Intake and Output 10/23/19 10/24/19 19:00 07:00 Intake Total 842.5 ml Output Total 1200 ml Balance -357.5 ml IV Total 842.5 ml Output Urine Total 1200 ml # Voids 3 2 Laboratory Tests 10/23/19 22:08: POC Whole Blood Glucose 159H Height (Feet): 5 Height (Inches): 4.00 Weight (Pounds): 138 General Appearance: lethargic EENT: normal ENT inspection Neck: normal alignment Cardiovascular: normal peripheral pulses, normal rate, regular rhythm Respiratory/Chest: chest wall non-tender, lungs clear, normal breath sounds Abdomen: normal bowel sounds, non tender, soft Extremities: normal inspection Edema: no edema noted Arm (L), no edema noted Arm (R), no edema noted Leg (L), no edema noted Leg (R), no edema noted Pedal (L), no edema noted Pedal (R), no edema noted Generalized Neurologic: motor weakness Skin: normal pigmentation, warm/dry Jesus Palomo DO Oct 24, 2019 08:15
[2019-10-24] MEDS: Memantine 10mg tab ORAL SCH (08:54)
[2019-10-24] MEDS: Eliquis 5mg tablet ORAL SCH (08:55)
[2019-10-24] MEDS: Aspirin Baby 81mg ORAL SCH (08:55)
[2019-10-24] MEDS: Docusate 100mg cap ORAL SCH ×2 (08:55→17:39)
[2019-10-24] MEDS: Multivitamin w/Minerals tab ORAL SCH (08:55)
[2019-10-24] MEDS: HydrALAZINE 25mg tab ORAL SCH ×2 (08:55→17:40)
[2019-10-24] MEDS: cefTRIAXone 1 GM in D5W 55 ML IVPB SCH (08:58)
[2019-10-24 09:07] LABS: BASOPHILS % (AUTO) 3.1 % (0.0-2.0); EOSINOPHILS % (AUTO) 1.8 % (0.0-3.0); HEMATOCRIT 26.1 % (37.0-47.0); HEMOGLOBIN 8.1 G/DL (12.0-16.0); MEAN CORPUSCULAR VOLUME 86 FL (80-99); MONOCYTES % (AUTO) 6.8 % (1.0-10.0); NEUTROPHILS % (AUTO) 74.3 % (45.0-75.0); PLATELET COUNT 320 K/UL (150-450); RED BLOOD COUNT 3.03 M/UL (4.20-5.40); WHITE BLOOD COUNT 8.1 K/UL (4.8-10.8)
[2019-10-24 09:17] LABS: ANION GAP 11 mmol/L (5-15); BLOOD UREA NITROGEN 27 mg/dL (7-18); CALCIUM 8.2 MG/DL (8.5-10.1); CARBON DIOXIDE 22 MMOL/L (21-32); CHLORIDE 101 MMOL/L (98-107); CREATININE 0.8 MG/DL (0.55-1.30); POTASSIUM 4.6 MMOL/L (3.5-5.1); SODIUM 134 MMOL/L (136-145)
--- NOTE | 2019-10-24 11:42 | Pulmonology Progress Note ---
Subjective ROS Limited/Unobtainable: No Constitutional: Reports: no symptoms HEENT: Repors: no symptoms Respiratory: Reports: no symptoms Allergies: Coded Allergies: No Known Allergies (Unverified , 04/17/19) All Systems: reviewed and negative except above Objective Last 24 Hour Vital Signs Date Time Temp Pulse Resp B/P (MAP) Pulse Ox O2 Delivery O2 Flow Rate FiO2 10/24/19 08:55 88 132/52 10/24/19 08:55 132/52 10/24/19 08:00 98.8 88 20 132/52 (78) 96 10/24/19 08:00 89 10/24/19 07:16 98.7 10/24/19 07:01 Nasal Cannula 2.0 Nasal Cannula 2.0 10/24/19 04:00 91 10/24/19 00:00 93 10/23/19 23:41 98.7 88 22 132/55 (80) 99 10/23/19 22:40 99 Nasal Cannula 2.0 28 10/23/19 22:40 95 20 99 Nasal Cannula 2.0 28 10/23/19 21:01 Nasal Cannula 2.0 Nasal Cannula 2.0 10/23/19 20:00 87 10/23/19 20:00 98.3 92 21 111/52 (71) 99 10/23/19 18:00 108/74 10/23/19 16:00 96.8 84 18 108/74 (85) 96 10/23/19 16:00 86 10/23/19 12:00 87 10/23/19 12:00 97.8 69 20 104/59 (74) 100 Intake and Output 10/23/19 10/24/19 19:00 07:00 Intake Total 842.5 ml Output Total 1200 ml Balance -357.5 ml IV Total 842.5 ml Output Urine Total 1200 ml # Voids 3 2 General Appearance: cachetic HEENT: normocephalic, atraumatic Respiratory: chest wall non-tender, lungs clear, normal breath sounds Cardiovascular: normal peripheral pulses, normal rate Abdomen: normal bowel sounds, soft, non tender Extremities: no clubbing 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: 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 grossly normal Lymphatic: no neck adenopathy Laboratory Tests 10/23/19 22:08: POC Whole Blood Glucose 159H 10/24/19 08:45: White Blood Count 8.1, Red Blood Count 3.03L, Hemoglobin 8.1L, Hematocrit 26.1L , Mean Corpuscular Volume 86, Mean Corpuscular Hemoglobin 26.8L, Mean Corpuscular Hemoglobin Concent 31.0L, Red Cell Distribution Width 14.0, Platelet Count 320, Mean Platelet Volume 5.2L, Neutrophils (%) (Auto) 74.3, Lymphocytes (%) (Auto) 14.0L, Monocytes (%) (Auto) 6.8, Eosinophils (%) (Auto) 1.8, Basophils (%) (Auto) 3.1H, Sodium Level 134L, Potassium Level 4.6, Chloride Level 101, Carbon Dioxide Level 22, Anion Gap 11, Blood Urea Nitrogen 27H, Creatinine 0.8, Estimat Glomerular Filtration Rate > 60, Glucose Level 222H , Calcium Level 8.2L, Troponin I 1.153H Current Medications Medications (Trade) Dose Ordered Sig/Lucina Route PRN Reason Start Time Stop Time Status Last Admin Dose Admin Acetaminophen (Tylenol) 325 mg Q4H PRN RECTAL Mild Pain (Pain Scale 1-3) 10/19/19 07:00 11/18/19 06:59 10/23/19 01:51 Acetaminophen/ Hydrocodone Bitart ([place] 5/325) 1 tab Q4H PRN ORAL Moderate Pain (Pain Scale 4-6) 10/21/19 15:15 10/28/19 15:14 10/23/19 11:32 Apixaban (Eliquis) 5 mg DAILY ORAL 10/19/19 13:39 01/17/20 13:38 10/24/19 08:55 Aspirin (ASA) 81 mg DAILY ORAL 10/19/19 09:00 12/03/19 08:59 10/24/19 08:55 Atorvastatin Calcium (Lipitor) 20 mg BEDTIME ORAL 10/20/19 21:00 01/18/20 20:59 10/22/19 21:29 Bisacodyl (Dulcolax) 10 mg DAILYPRN PRN RECTAL Constipation 10/23/19 17:30 01/21/20 17:29 10/24/19 00:39 Ceftriaxone Sodium 1 gm/ Dextrose 55 ml @ 110 mls/hr Q24H IVPB 10/23/19 09:00 10/30/19 08:59 10/24/19 08:58 Dextrose (Dextrose 50%) 25 ml Q30M PRN IV Hypoglycemia 10/22/19 12:00 01/20/20 11:59 Dextrose (Dextrose 50%) 50 ml Q30M PRN IV Hypoglycemia 10/22/19 12:00 01/20/20 11:59 Dextrose/ Electrolytes 1,000 ml @ 75 mls/hr [id number] IV 10/21/19 20:30 11/20/19 20:29 10/23/19 00:41 Docusate Sodium (Colace) 100 mg TWICE A DAY ORAL 10/23/19 18:00 11/22/19 17:59 10/24/19 08:55 Hydralazine HCl (Apresoline) 25 mg BID ORAL 10/20/19 18:00 01/17/20 07:29 10/24/19 08:55 Insulin Aspart (NovoLOG) BEFORE MEALS AND HS SUBQ 10/22/19 16:30 01/20/20 16:29 10/23/19 17:20 Levalbuterol HCl (Xopenex) 1.25 mg Q4H PRN HHN Shortness of Breath 10/22/19 18:15 10/27/19 18:14 10/22/19 20:04 Levothyroxine Sodium (Synthroid) 75 mcg DAILY@0630 ORAL 10/19/19 07:30 11/18/19 07:29 10/24/19 06:47 Lorazepam (Ativan) 0.5 mg Q6H PRN ORAL For Anxiety 10/21/19 05:15 10/28/19 05:14 Memantine (Namenda) 5 mg DAILY ORAL 10/21/19 09:00 11/20/19 08:59 10/24/19 08:54 Metoprolol Tartrate (Lopressor) 25 mg Q12HR ORAL 10/20/19 21:00 01/18/20 20:59 10/24/19 08:55 Morphine Sulfate (Morphine Sulfate) 2 mg Q4H PRN IVP Moderate Pain (Pain Scale 4-6) 10/19/19 03:45 10/26/19 03:44 10/24/19 11:29 Multivitamins Therapeutic (Therapeutic Multivitamin) 1 ea DAILY ORAL 10/19/19 09:00 11/18/19 08:59 10/24/19 08:55 Nitroglycerin (Ntg) 0.4 mg Q5M PRN SL Prn Chest Pain 10/19/19 07:00 11/18/19 06:59 Assessment/Plan Problems: (1) Nosocomial pneumonia (2) Iron deficiency anemia (3) Closed comminuted intertrochanteric fracture of left femur (4) Chronic atrial fibrillation (5) Chronic anticoagulation (6) History of CVA (cerebrovascular accident) (7) GERD (gastroesophageal reflux disease) (8) Hypothyroid Assessment/Plan CT scan of chest pending afebrile, wbc wnl Venofer IV times one heart rate controlled, sinus with PAC, and episodes of afib ID consult requested. continue Ceftriaxone for now dvt prophylaxis pain management Obey Daniel MD Oct 24, 2019 11:42
--- NOTE | 2019-10-24 11:57 | Cardiac Electrophysiology PN ---
Assessment/Plan Assessment/Plan 1. Atrial fibrillation with RVR 130s. 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 Eliquis resumed at 5 daily. Will change to 2.5 bid in view of age of 89 and recent surgery 2. NSTEMI with lateral ischemia. Troponin levels were 0.33 to 0.2 to 0.1 Post op troponin went up to 6 and then down to 2.5. Denies any chest pain. Will treat medically with aspirin 81 mg daily and lopressor 25 bid and Lipitor 20. Likely demand ischemia in this 89 year old with atrial fib with RVR and hip Fx. Echo Nl EF 3. Hypertension, on hydralazine 25 mg bid and Lopressor 25 bid 4. Status post fall and left hip fracture. S/P surgery by Dr Tracy. Echocardiogram showed Nl EF 60%. 5. Fever, Being Ruled out for COVID again DW RN Subjective Subjective S/P hip surgery 10/21/19. No CP. [place] with the therapist. Was febrile and SOB and Covid was repeated Objective Last 24 Hour Vital Signs Date Time Temp Pulse Resp B/P (MAP) Pulse Ox O2 Delivery O2 Flow Rate FiO2 10/24/19 08:55 88 132/52 10/24/19 08:55 132/52 10/24/19 08:00 98.8 88 20 132/52 (78) 96 10/24/19 08:00 89 10/24/19 07:16 98.7 10/24/19 07:01 Nasal Cannula 2.0 Nasal Cannula 2.0 10/24/19 04:00 91 10/24/19 00:00 93 10/23/19 23:41 98.7 88 22 132/55 (80) 99 10/23/19 22:40 99 Nasal Cannula 2.0 28 10/23/19 22:40 95 20 99 Nasal Cannula 2.0 28 10/23/19 21:01 Nasal Cannula 2.0 Nasal Cannula 2.0 10/23/19 20:00 87 10/23/19 20:00 98.3 92 21 111/52 (71) 99 10/23/19 18:00 108/74 10/23/19 16:00 96.8 84 18 108/74 (85) 96 10/23/19 16:00 86 10/23/19 12:00 87 10/23/19 12:00 97.8 69 20 104/59 (74) 100 Intake and Output 10/23/19 10/24/19 19:00 07:00 Intake Total 842.5 ml Output Total 1200 ml Balance -357.5 ml IV Total 842.5 ml Output Urine Total 1200 ml # Voids 3 2 Laboratory Tests Test 10/23/19 22:08 10/24/19 08:45 POC Whole Blood Glucose 159 MG/DL (74-106) H White Blood Count 8.1 K/UL (4.8-10.8) Red Blood Count 3.03 M/UL (4.20-5.40) L Hemoglobin 8.1 G/DL (12.0-16.0) L Hematocrit 26.1 % (37.0-47.0) L Mean Corpuscular Volume 86 FL (80-99) Mean Corpuscular Hemoglobin 26.8 PG (27.0-31.0) L Mean Corpuscular Hemoglobin Concent 31.0 G/DL (32.0-36.0) L Red Cell Distribution Width 14.0 % (11.6-14.8) Platelet Count 320 K/UL (150-450) Mean Platelet Volume 5.2 FL (6.5-10.1) L Neutrophils (%) (Auto) 74.3 % (45.0-75.0) Lymphocytes (%) (Auto) 14.0 % (20.0-45.0) L Monocytes (%) (Auto) 6.8 % (1.0-10.0) Eosinophils (%) (Auto) 1.8 % (0.0-3.0) Basophils (%) (Auto) 3.1 % (0.0-2.0) H Sodium Level 134 MMOL/L (136-145) L Potassium Level 4.6 MMOL/L (3.5-5.1) Chloride Level 101 MMOL/L (98-107) Carbon Dioxide Level 22 MMOL/L (21-32) Anion Gap 11 mmol/L (5-15) Blood Urea Nitrogen 27 mg/dL (7-18) H Creatinine 0.8 MG/DL (0.55-1.30) Estimat Glomerular Filtration Rate > 60 mL/min (>60) Glucose Level 222 MG/DL (74-106) H Calcium Level 8.2 MG/DL (8.5-10.1) L Troponin I 1.153 ng/mL (0.000-0.056) Objective HEAD AND NECK: No JVD. LUNGS: Clear. CARDIOVASCULAR: Irregular S1 and S2 with no gallop. ABDOMEN: Soft. EXTREMITIES: No pitting edema.S/P hip surgery Rajat Zamudio MD Oct 24, 2019 11:57
[2019-10-24 12:00] VITALS: BP 103/38
[2019-10-24] MEDS ORDERED: Iron Sucrose 200 MG in NS 110 ML IV ONE (14:00)
--- NOTE | 2019-10-24 15:13 | Infectious Diseases Prog Note ---
Assessment/Plan Abx: Ceftriaxone 10/22- Assessment: COVID neg x1 Fever- likely post-op and pneumonia (?aspiration); improving No leukocytosis -10/22 CXR: Right upper lobe opacity which has increased from October 19, 2019. Correlate for infiltrate. Follow-up chest radiograph recommended. No pleural effusion or pneumothorax. Mild emphysematous changes with chronically increased interstitial markings.The heart is enlarged. The aorta is calcified and tortuous. The tracheobronchial tree is calcified. -10/18 SARS-COV2 PCR neg SP fall Left displaced intertrochanteric hip fracture. -10/21 SP L hip nailing -CT pelvis: Comminuted left femoral intertrochanteric fracture. Deformity of the right superior and inferior pubic rami, likely due to old fracture. -hip xray: Comminuted left femoral intertrochanteric fracture. -CT head: no acute findings GERD MDD hypothyridism AFib CVA hip fracture HTN [place] resident ( [facility] [place]) Plan: -Continue Ceftriaxone #2 -f/u cx -Monitor CBC/CMP, temperatures -u/a w/ reflex, Bcx, sp cx -CT chest and 2nd COVID ordered by pulm; keep COVID isolation -aspiration precautions -wound care per ortho team -Ortho, pulm f/u Thank you for this consultation. Will continue to follow along with you. Discussed with RN. Subjective Allergies: Coded Allergies: No Known Allergies (Unverified , 04/17/19) afebrile >24hrs at 2l nC Objective Last 24 Hour Vital Signs Date Time Temp Pulse Resp B/P (MAP) Pulse Ox O2 Delivery O2 Flow Rate FiO2 10/24/19 12:00 96.6 64 22 103/38 (59) 97 10/24/19 12:00 65 10/24/19 08:55 88 132/52 10/24/19 08:55 132/52 10/24/19 08:00 98.8 88 20 132/52 (78) 96 10/24/19 08:00 89 10/24/19 07:16 98.7 10/24/19 07:01 Nasal Cannula 2.0 Nasal Cannula 2.0 10/24/19 04:00 91 10/24/19 00:00 93 10/23/19 23:41 98.7 88 22 132/55 (80) 99 10/23/19 22:40 99 Nasal Cannula 2.0 28 10/23/19 22:40 95 20 99 Nasal Cannula 2.0 28 10/23/19 21:01 Nasal Cannula 2.0 Nasal Cannula 2.0 10/23/19 20:00 87 10/23/19 20:00 98.3 92 21 111/52 (71) 99 10/23/19 18:00 108/74 10/23/19 16:00 96.8 84 18 108/74 (85) 96 10/23/19 16:00 86 Height (Feet): 5 Height (Inches): 4.00 Weight (Pounds): 138 Laboratory Tests Test 10/23/19 22:08 10/24/19 08:45 POC Whole Blood Glucose 159 MG/DL (74-106) H White Blood Count 8.1 K/UL (4.8-10.8) Red Blood Count 3.03 M/UL (4.20-5.40) L Hemoglobin 8.1 G/DL (12.0-16.0) L Hematocrit 26.1 % (37.0-47.0) L Mean Corpuscular Volume 86 FL (80-99) Mean Corpuscular Hemoglobin 26.8 PG (27.0-31.0) L Mean Corpuscular Hemoglobin Concent 31.0 G/DL (32.0-36.0) L Red Cell Distribution Width 14.0 % (11.6-14.8) Platelet Count 320 K/UL (150-450) Mean Platelet Volume 5.2 FL (6.5-10.1) L Neutrophils (%) (Auto) 74.3 % (45.0-75.0) Lymphocytes (%) (Auto) 14.0 % (20.0-45.0) L Monocytes (%) (Auto) 6.8 % (1.0-10.0) Eosinophils (%) (Auto) 1.8 % (0.0-3.0) Basophils (%) (Auto) 3.1 % (0.0-2.0) H Sodium Level 134 MMOL/L (136-145) L Potassium Level 4.6 MMOL/L (3.5-5.1) Chloride Level 101 MMOL/L (98-107) Carbon Dioxide Level 22 MMOL/L (21-32) Anion Gap 11 mmol/L (5-15) Blood Urea Nitrogen 27 mg/dL (7-18) H Creatinine 0.8 MG/DL (0.55-1.30) Estimat Glomerular Filtration Rate > 60 mL/min (>60) Glucose Level 222 MG/DL (74-106) H Calcium Level 8.2 MG/DL (8.5-10.1) L Troponin I 1.153 ng/mL (0.000-0.056) Current Medications Medications (Trade) Dose Ordered Sig/Lucina Route PRN Reason Start Time Stop Time Status Last Admin Dose Admin Acetaminophen (Tylenol) 325 mg Q4H PRN RECTAL Mild Pain (Pain Scale 1-3) 10/19/19 07:00 11/18/19 06:59 10/23/19 01:51 Acetaminophen/ Hydrocodone Bitart ([place] 5/325) 1 tab Q4H PRN ORAL Moderate Pain (Pain Scale 4-6) 10/21/19 15:15 10/28/19 15:14 10/23/19 11:32 Apixaban (Eliquis) 2.5 mg BID ORAL 10/24/19 18:00 01/17/20 13:38 Aspirin (ASA) 81 mg DAILY ORAL 10/19/19 09:00 12/03/19 08:59 10/24/19 08:55 Atorvastatin Calcium (Lipitor) 20 mg BEDTIME ORAL 10/20/19 21:00 01/18/20 20:59 10/22/19 21:29 Bisacodyl (Dulcolax) 10 mg DAILYPRN PRN RECTAL Constipation 10/23/19 17:30 01/21/20 17:29 10/24/19 00:39 Ceftriaxone Sodium 1 gm/ Dextrose 55 ml @ 110 mls/hr Q24H IVPB 10/23/19 09:00 10/30/19 08:59 10/24/19 08:58 Dextrose (Dextrose 50%) 25 ml Q30M PRN IV Hypoglycemia 10/22/19 12:00 01/20/20 11:59 Dextrose (Dextrose 50%) 50 ml Q30M PRN IV Hypoglycemia 10/22/19 12:00 01/20/20 11:59 Dextrose/ Electrolytes 1,000 ml @ 50 mls/hr Q20H IV 10/24/19 11:45 11/20/19 11:44 10/24/19 12:00 Docusate Sodium (Colace) 100 mg TWICE A DAY ORAL 10/23/19 18:00 11/22/19 17:59 10/24/19 08:55 Hydralazine HCl (Apresoline) 25 mg BID ORAL 10/20/19 18:00 01/17/20 07:29 10/24/19 08:55 Insulin Aspart (NovoLOG) BEFORE MEALS AND HS SUBQ 10/22/19 16:30 01/20/20 16:29 10/24/19 11:30 Levalbuterol HCl (Xopenex) 1.25 mg Q4H PRN HHN Shortness of Breath 10/22/19 18:15 10/27/19 18:14 10/22/19 20:04 Levothyroxine Sodium (Synthroid) 75 mcg DAILY@0630 ORAL 10/19/19 07:30 11/18/19 07:29 10/24/19 06:47 Lorazepam (Ativan) 0.5 mg Q6H PRN ORAL For Anxiety 10/21/19 05:15 10/28/19 05:14 Memantine (Namenda) 5 mg DAILY ORAL 10/21/19 09:00 11/20/19 08:59 10/24/19 08:54 Metoprolol Tartrate (Lopressor) 25 mg Q12HR ORAL 10/20/19 21:00 01/18/20 20:59 10/24/19 08:55 Morphine Sulfate (Morphine Sulfate) 2 mg Q4H PRN IVP Moderate Pain (Pain Scale 4-6) 10/19/19 03:45 10/26/19 03:44 10/24/19 11:29 Multivitamins Therapeutic (Therapeutic Multivitamin) 1 ea DAILY ORAL 10/19/19 09:00 11/18/19 08:59 10/24/19 08:55 Nitroglycerin (Ntg) 0.4 mg Q5M PRN SL Prn Chest Pain 10/19/19 07:00 11/18/19 06:59 Vida Llamas M.D. Oct 24, 2019 15:13
[2019-10-24 16:00] VITALS: BP 113/43
--- NOTE | 2019-10-24 17:00 | Progress Note ---
DATE: 10/24/2019 SUBJECTIVE: This is an 89-year-old female patient. Patient has got nosocomial pneumonia, altered mental status, confusion, decline in cognition below the baseline, GERD, pneumonia, respiratory insufficiency, status post CVA. That is why her attending has requested daily psychiatric consultation. MENTAL STATUS EXAMINATION: An 89-year-old female. Appearance is disheveled. Attitude, irritable and agitated. Affect, guarded and restricted. Intellect, poor. Mood, depressed and anxious. Motor activity, psychomotor agitation. Attention span is poor. Orientation x2. Speech is low volume, slurred. Thought process, disorganized and illogical. Insight and judgment is poor. DIAGNOSIS: Major depressive disorder, mild, recurrent with psychotic features, rule out dementia with psychosis. PLAN: Treat her with a medication regimen consisting of Ativan 0.5 mg every 6 hours p.r.n. anxiety or agitation. Treat her with Namenda 5 mg daily. Twenty minutes of insight-oriented psychotherapy will help her recognize her psychiatric and physical condition so that she has better impulse control and she also has decreased anxiety and depression. Chart reviewed. Discussed with staff. The patient is seen and assessed in her room. Edd Weiner M.D. DR: NASH JOB#: [id number] CC:
[2019-10-24] MEDS: Eliquis 2.5mg tablet ORAL SCH (17:40)
[2019-10-24 18:31] LABS: APPEARANCE,URINE SLIGHTLY CLOUDY; BILIRUBIN, URINE NEGATIVE (NEGATIVE); COLOR,URINE AMBER; GLUCOSE, URINE (UA) 3+ (NEGATIVE); KETONES,URINE NEGATIVE (NEGATIVE); LEUKOCYTE ESTERASE ,URINE 1+ (NEGATIVE); NITRITE,URINE NEGATIVE (NEGATIVE); PH,URINE 6 (4.5-8.0); PROTEIN,URINE 2+ (NEGATIVE); UROBILINOGEN,URINE 1 MG/DL (0.0-1.0)
[2019-10-24 20:00] VITALS: BP 110/51
[2019-10-24] MEDS: Atorvastatin 20mg tab ORAL SCH (20:34)
[2019-10-25] VITALS: BP 101/49
[2019-10-25 04:00] VITALS: BP 121/51
[2019-10-25 06:21] LABS: BASOPHILS % (AUTO) 2.2 % (0.0-2.0); EOSINOPHILS % (AUTO) 5.1 % (0.0-3.0); HEMATOCRIT 27.4 % (37.0-47.0); HEMOGLOBIN 8.3 G/DL (12.0-16.0); LYMPHOCYTES % (AUTO) 20.9 % (20.0-45.0); MEAN CORPUSCULAR VOLUME 87 FL (80-99); MONOCYTES % (AUTO) 9.7 % (1.0-10.0); NEUTROPHILS % (AUTO) 62.1 % (45.0-75.0); PLATELET COUNT 322 K/UL (150-450); RED BLOOD COUNT 3.14 M/UL (4.20-5.40); RED CELL DISTRIBUTION WIDTH 13.8 % (11.6-14.8); WHITE BLOOD COUNT 7.6 K/UL (4.8-10.8)
[2019-10-25] MEDS: NovoLOG Insulin Flexpen SUBQ SCH ×2 (06:36→11:45)
[2019-10-25 07:14] LABS: ANION GAP 10 mmol/L (5-15); BLOOD UREA NITROGEN 22 mg/dL (7-18); CALCIUM 8.6 MG/DL (8.5-10.1); CARBON DIOXIDE 22 MMOL/L (21-32); CHLORIDE 101 MMOL/L (98-107); CREATININE 0.8 MG/DL (0.55-1.30); POTASSIUM 4.7 MMOL/L (3.5-5.1); SODIUM 133 MMOL/L (136-145)
[2019-10-25 08:00] VITALS: BP 136/64
[2019-10-25] MEDS: Eliquis 2.5mg tablet ORAL SCH (09:10)
[2019-10-25] MEDS: Aspirin Baby 81mg ORAL SCH (09:10)
[2019-10-25] MEDS: Multivitamin w/Minerals tab ORAL SCH (09:10)
[2019-10-25] MEDS: Docusate 100mg cap ORAL SCH (09:10)
[2019-10-25] MEDS: HydrALAZINE 25mg tab ORAL SCH (09:10)
[2019-10-25] MEDS: Memantine 10mg tab ORAL SCH (09:10)
[2019-10-25] MEDS: cefTRIAXone 1 GM in D5W 55 ML IVPB SCH (09:11)
[2019-10-25] MEDS: D5 1/2NS w/KCl 20mEq 1,000 ML IV SCH (09:12)
--- NOTE | 2019-10-25 10:07 | Infectious Diseases Prog Note ---
Assessment/Plan Abx: Ceftriaxone 10/22- Assessment: COVID neg x2 Fever- likely post-op and pneumonia (?aspiration);SP No leukocytosis -u/a wbv 5-10; ucx n TD -10/22 CXR: Right upper lobe opacity which has increased from October 19, 2019. Correlate for infiltrate. Follow-up chest radiograph recommended. No pleural effusion or pneumothorax. Mild emphysematous changes with chronically increased interstitial markings.The heart is enlarged. The aorta is calcified and tortuous. The tracheobronchial tree is calcified. SARS-COV2 PCR neg -10/18 SARS-COV2 PCR neg SP fall Left displaced intertrochanteric hip fracture. -10/21 SP L hip nailing -CT pelvis: Comminuted left femoral intertrochanteric fracture. Deformity of the right superior and inferior pubic rami, likely due to old fracture. -hip xray: Comminuted left femoral intertrochanteric fracture. -CT head: no acute findings GERD MDD hypothyridism AFib CVA hip fracture HTN [place] resident ( [facility]) Plan: -Continue Ceftriaxone #3/ -f/u cx -Monitor CBC/CMP, temperatures -COVID neg x2; ok to dc iso -aspiration precautions -wound care per ortho team -Ortho, pulm f/u Thank you for this consultation. Will continue to follow along with you. Discussed with RN. Subjective Allergies: Coded Allergies: No Known Allergies (Unverified , 04/17/19) afebrile >48hrs at 2l nC no leukocytosis Bcx NTD Objective Last 24 Hour Vital Signs Date Time Temp Pulse Resp B/P (MAP) Pulse Ox O2 Delivery O2 Flow Rate FiO2 10/25/19 09:10 78 136/64 10/25/19 09:10 136/64 10/25/19 09:00 Nasal Cannula 2.0 Nasal Cannula 2.0 10/25/19 08:00 98.9 78 18 136/64 (88) 100 10/25/19 08:00 78 10/25/19 07:30 64 20 98 Nasal Cannula 2.0 28 10/25/19 07:30 98 Nasal Cannula 2.0 28 10/25/19 04:00 66 10/25/19 04:00 97.9 69 18 121/51 (74) 95 10/25/19 00:00 98.5 62 16 101/49 (66) 96 10/25/19 00:00 64 10/24/19 21:00 Nasal Cannula 2.0 Nasal Cannula 2.0 10/24/19 20:34 67 105/61 10/24/19 20:00 68 10/24/19 20:00 99.1 73 18 110/51 (70) 96 10/24/19 19:20 98 Nasal Cannula 2.0 28 10/24/19 19:20 96 20 98 Nasal Cannula 2.0 28 10/24/19 17:40 113/43 10/24/19 16:00 69 10/24/19 16:00 98.1 66 20 113/43 (66) 96 10/24/19 12:00 96.6 64 22 103/38 (59) 97 10/24/19 12:00 65 Height (Feet): 5 Height (Inches): 4.00 Weight (Pounds): 138 Microbiology Date/Time Source Procedure Growth Status 10/23/19 11:55 Blood Blood Culture - Preliminary NO GROWTH AFTER 24 HOURS Resulted 10/23/19 11:55 Blood Blood Culture - Preliminary NO GROWTH AFTER 24 HOURS Resulted 10/23/19 12:45 Nasopharynx Coronavirus COVID-19 PCR (AURELIO) - Final Complete 10/24/19 17:30 Urine,Clean Catch Urine Culture - Preliminary NO GROWTH Resulted Laboratory Tests Test 10/24/19 11:36 10/24/19 17:15 10/24/19 17:30 10/24/19 20:41 POC Whole Blood Glucose Pending 139 MG/DL (74-106) H 177 MG/DL (74-106) H Urine Color Kimberly Urine Appearance Slightly cloudy Urine pH 6 (4.5-8.0) Urine Specific [place] 1.015 (1.005-1.035) Urine Protein 2+ (NEGATIVE) H Urine Glucose (UA) 3+ (NEGATIVE) H Urine Ketones Negative (NEGATIVE) Urine Blood 5+ (NEGATIVE) H Urine Nitrite Negative (NEGATIVE) Urine Bilirubin Negative (NEGATIVE) Urine Ictotest Negative (NEGATIVE) Urine Urobilinogen 1 MG/DL (0.0-1.0) H Urine Leukocyte Esterase 1+ (NEGATIVE) H Urine RBC Tntc /HPF (0 - 2) H Urine WBC 5-10 /HPF (0 - 2) H Urine Squamous Epithelial Cells Moderate /LPF (NONE/OCC) H Urine Bacteria Moderate /HPF (NONE) H Stool Occult Blood Pending Test 10/25/19 03:40 10/25/19 05:55 White Blood Count 7.6 K/UL (4.8-10.8) Red Blood Count 3.14 M/UL (4.20-5.40) L Hemoglobin 8.3 G/DL (12.0-16.0) L Hematocrit 27.4 % (37.0-47.0) L Mean Corpuscular Volume 87 FL (80-99) Mean Corpuscular Hemoglobin 26.4 PG (27.0-31.0) L Mean Corpuscular Hemoglobin Concent 30.2 G/DL (32.0-36.0) L Red Cell Distribution Width 13.8 % (11.6-14.8) Platelet Count 322 K/UL (150-450) Mean Platelet Volume 4.1 FL (6.5-10.1) L Neutrophils (%) (Auto) 62.1 % (45.0-75.0) Lymphocytes (%) (Auto) 20.9 % (20.0-45.0) Monocytes (%) (Auto) 9.7 % (1.0-10.0) Eosinophils (%) (Auto) 5.1 % (0.0-3.0) H Basophils (%) (Auto) 2.2 % (0.0-2.0) H Sodium Level 133 MMOL/L (136-145) L Potassium Level 4.7 MMOL/L (3.5-5.1) Chloride Level 101 MMOL/L (98-107) Carbon Dioxide Level 22 MMOL/L (21-32) Anion Gap 10 mmol/L (5-15) Blood Urea Nitrogen 22 mg/dL (7-18) H Creatinine 0.8 MG/DL (0.55-1.30) Estimat Glomerular Filtration Rate > 60 mL/min (>60) Glucose Level 177 MG/DL (74-106) H Calcium Level 8.6 MG/DL (8.5-10.1) POC Whole Blood Glucose Pending Current Medications Medications (Trade) Dose Ordered Sig/Lucina Route PRN Reason Start Time Stop Time Status Last Admin Dose Admin Acetaminophen (Tylenol) 325 mg Q4H PRN RECTAL Mild Pain (Pain Scale 1-3) 10/19/19 07:00 8/2/20 06:59 10/23/19 01:51 Acetaminophen/ Hydrocodone Bitart ([place] 5/325) 1 tab Q4H PRN ORAL Moderate Pain (Pain Scale 4-6) 10/21/19 15:15 10/28/19 15:14 10/23/19 11:32 Apixaban (Eliquis) 2.5 mg BID ORAL 10/24/19 18:00 01/17/20 13:38 10/25/19 09:10 Aspirin (ASA) 81 mg DAILY ORAL 10/19/19 09:00 12/03/19 08:59 10/25/19 09:10 Atorvastatin Calcium (Lipitor) 20 mg BEDTIME ORAL 10/20/19 21:00 01/18/20 20:59 10/24/19 20:34 Bisacodyl (Dulcolax) 10 mg DAILYPRN PRN RECTAL Constipation 10/23/19 17:30 01/21/20 17:29 10/24/19 00:39 Ceftriaxone Sodium 1 gm/ Dextrose 55 ml @ 110 mls/hr Q24H IVPB 10/23/19 09:00 10/30/19 08:59 10/25/19 09:11 Dextrose (Dextrose 50%) 25 ml Q30M PRN IV Hypoglycemia 10/22/19 12:00 01/20/20 11:59 Dextrose (Dextrose 50%) 50 ml Q30M PRN IV Hypoglycemia 10/22/19 12:00 01/20/20 11:59 Dextrose/ Electrolytes 1,000 ml @ 50 mls/hr Q20H IV 10/24/19 11:45 11/20/19 11:44 10/25/19 09:12 Docusate Sodium (Colace) 100 mg TWICE A DAY ORAL 10/23/19 18:00 11/22/19 17:59 10/25/19 09:10 Hydralazine HCl (Apresoline) 25 mg BID ORAL 10/20/19 18:00 01/17/20 07:29 10/25/19 09:10 Insulin Aspart (NovoLOG) BEFORE MEALS AND HS SUBQ 10/22/19 16:30 01/20/20 16:29 10/25/19 06:36 Levalbuterol HCl (Xopenex) 1.25 mg Q4H PRN HHN Shortness of Breath 10/22/19 18:15 10/27/19 18:14 10/22/19 20:04 Levothyroxine Sodium (Synthroid) 75 mcg DAILY@0630 ORAL 10/19/19 07:30 11/18/19 07:29 10/25/19 05:54 Lorazepam (Ativan) 0.5 mg Q6H PRN ORAL For Anxiety 10/21/19 05:15 10/28/19 05:14 Memantine (Namenda) 5 mg DAILY ORAL 10/21/19 09:00 11/20/19 08:59 10/25/19 09:10 Metoprolol Tartrate (Lopressor) 25 mg Q12HR ORAL 10/20/19 21:00 01/18/20 20:59 10/25/19 09:10 Morphine Sulfate (Morphine Sulfate) 2 mg Q4H PRN IVP Moderate Pain (Pain Scale 4-6) 10/19/19 03:45 10/26/19 03:44 10/24/19 11:29 Multivitamins Therapeutic (Therapeutic Multivitamin) 1 ea DAILY ORAL 10/19/19 09:00 11/18/19 08:59 10/25/19 09:10 Nitroglycerin (Ntg) 0.4 mg Q5M PRN SL Prn Chest Pain 10/19/19 07:00 11/18/19 06:59 Vida Llamas M.D. Oct 25, 2019 10:07
--- NOTE | 2019-10-25 10:56 | Diagnostic Imaging Report ---
Clinical Indication: Reason For Exam: DYSPNEA Technique: IV administration nonionic contrast. Spiral acquisition obtained through the chest. Multiplanar reconstructions generated. Total dose length product 204 mGycm. CTDIvol(s) 2, 75, 4 mGy. Dose reduction achieved using automated exposure control Comparison: Chest radiograph dated 10/23/2019. No comparison CT scans are available Findings: There is some image degradation due to respiratory motion artifact. There is a 3 mm nodule along the right major fissure, image 24 series 7. Minimal atelectasis or scarring is seen at the right lung base. The right lung is otherwise clear. There is some atelectasis or scarring at the left lung base. Some compressive atelectatic changes are seen in the inferior lingula. There may be some very focal consolidation in the posterior inferior lingula. No dense consolidation. There is very slight overall haziness to the pulmonary parenchyma. No effusions. The heart is enlarged demonstrating four-chamber cardiomegaly. No pericardial effusion. The right main pulmonary artery is dilated, measuring 32 mm in diameter, and the left main pulmonary artery is ectatic, measuring 28 mm in diameter. The thyroid is somewhat heterogeneous and slightly enlarged. No mediastinal or hilar mass or adenopathy. No axillary or chest wall mass or adenopathy. There is a small to moderate-sized sliding-type hiatal hernia. The esophagus is otherwise unremarkable. The bones demonstrate a anterior wedge compression fracture deformity of the T12 vertebral body, with 70-80% height loss anteriorly, slight posterior retropulsion. There are degenerative changes of the thoracic and lumbar spine. Included upper abdominal anatomy demonstrates bilateral mild to moderate hydronephrosis. There is a large cyst coming off of the upper pole of the left kidney. Impression: Cardiomegaly Somewhat limited evaluation of the lungs due to respiratory motion artifact Questionable slight haziness to the pulmonary parenchyma, probably artifactual due to the motion artifact. Very mild pulmonary edema also possible Minimal possible focal consolidation in the inferior lingula of the left upper lobe No definite acute pulmonary process otherwise. There are basilar atelectatic changes noted Dilated right main pulmonary artery, consistent with pulmonary arterial hypertension Bilateral hydronephrosis, etiology not demonstrated. Consider abdomen pelvis CT for better characterization if clinically indicated Enlarged heterogeneous thyroid 3 mm pleural nodule in the right major fissure, presumed benign T12 vertebral body wedge compression fracture with 70-80% anterior height loss and slight posterior retropulsion. Acuity indeterminate. Consider MRI for better characterization if this is clinically relevant Small to moderate hiatal hernia Incidental finding of left upper pole renal cyst The CT scanner at [facility] is accredited by the [employer] and the scans are performed using protocols designed to limit radiation exposure to as low as reasonably achievable to attain images of sufficient resolution adequate for diagnostic evaluation.
--- NOTE | 2019-10-25 11:34 | Pulmonology Progress Note ---
Subjective ROS Limited/Unobtainable: No Constitutional: Reports: no symptoms HEENT: Repors: no symptoms Respiratory: Reports: no symptoms Allergies: Coded Allergies: No Known Allergies (Unverified , 04/17/19) All Systems: reviewed and negative except above Objective Last 24 Hour Vital Signs Date Time Temp Pulse Resp B/P (MAP) Pulse Ox O2 Delivery O2 Flow Rate FiO2 10/25/19 09:10 78 136/64 10/25/19 09:10 136/64 10/25/19 09:00 Nasal Cannula 2.0 Nasal Cannula 2.0 10/25/19 08:00 98.9 78 18 136/64 (88) 100 10/25/19 08:00 78 10/25/19 07:30 64 20 98 Nasal Cannula 2.0 28 10/25/19 07:30 98 Nasal Cannula 2.0 28 10/25/19 04:00 66 10/25/19 04:00 97.9 69 18 121/51 (74) 95 10/25/19 00:00 98.5 62 16 101/49 (66) 96 10/25/19 00:00 64 10/24/19 21:00 Nasal Cannula 2.0 Nasal Cannula 2.0 10/24/19 20:34 67 105/61 10/24/19 20:00 68 10/24/19 20:00 99.1 73 18 110/51 (70) 96 10/24/19 19:20 98 Nasal Cannula 2.0 28 10/24/19 19:20 96 20 98 Nasal Cannula 2.0 28 10/24/19 17:40 113/43 10/24/19 16:00 69 10/24/19 16:00 98.1 66 20 113/43 (66) 96 10/24/19 12:00 96.6 64 22 103/38 (59) 97 10/24/19 12:00 65 Intake and Output 10/24/19 10/25/19 19:00 07:00 Output Total 100 ml Balance -100 ml Output Urine Total 100 ml # Voids 3 2 General Appearance: cachetic HEENT: normocephalic, atraumatic Respiratory: chest wall non-tender, lungs clear, normal breath sounds Cardiovascular: normal peripheral pulses, normal rate Abdomen: normal bowel sounds, soft, non tender Extremities: no clubbing 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 grossly normal Lymphatic: no neck adenopathy Microbiology Date/Time Source Procedure Growth Status 10/23/19 11:55 Blood Blood Culture - Preliminary NO GROWTH AFTER 24 HOURS Resulted 10/23/19 11:55 Blood Blood Culture - Preliminary NO GROWTH AFTER 24 HOURS Resulted 10/23/19 12:45 Nasopharynx Coronavirus COVID-19 PCR (AURELIO) - Final Complete 10/24/19 17:30 Urine,Clean Catch Urine Culture - Preliminary NO GROWTH Resulted Laboratory Tests 10/24/19 11:36: POC Whole Blood Glucose [Pending] 10/24/19 17:15: POC Whole Blood Glucose 139H 10/24/19 17:30: Urine Color Kimberly, Urine Appearance Slightly cloudy, Urine pH 6, Urine Specific [place] 1.015, Urine Protein 2+H, Urine Glucose (UA) 3+H, Urine Ketones Negative , Urine Blood 5+H, Urine Nitrite Negative, Urine Bilirubin Negative, Urine Ictotest Negative, Urine Urobilinogen 1H, Urine Leukocyte Esterase 1+H, Urine RBC TntcH, Urine WBC 5-10H, Urine Squamous Epithelial Cells ModerateH, Urine Bacteria ModerateH, Stool Occult Blood [Pending] 10/24/19 20:41: POC Whole Blood Glucose 177H 10/25/19 03:40: White Blood Count 7.6, Red Blood Count 3.14L, Hemoglobin 8.3L, Hematocrit 27.4L , Mean Corpuscular Volume 87, Mean Corpuscular Hemoglobin 26.4L, Mean Corpuscular Hemoglobin Concent 30.2L, Red Cell Distribution Width 13.8, Platelet Count 322, Mean Platelet Volume 4.1L, Neutrophils (%) (Auto) 62.1, Lymphocytes (%) (Auto) 20.9, Monocytes (%) (Auto) 9.7, Eosinophils (%) (Auto) 5.1H, Basophils (%) (Auto) 2.2H, Sodium Level 133L, Potassium Level 4.7, Chloride Level 101, Carbon Dioxide Level 22, Anion Gap 10, Blood Urea Nitrogen 22H, Creatinine 0.8, Estimat Glomerular Filtration Rate > 60, Glucose Level 177H , Calcium Level 8.6 10/25/19 05:55: POC Whole Blood Glucose [Pending] Current Medications Medications (Trade) Dose Ordered Sig/Lucina Route PRN Reason Start Time Stop Time Status Last Admin Dose Admin Acetaminophen (Tylenol) 325 mg Q4H PRN RECTAL Mild Pain (Pain Scale 1-3) 10/19/19 07:00 11/18/19 06:59 10/23/19 01:51 Acetaminophen/ Hydrocodone Bitart ([place] 5/325) 1 tab Q4H PRN ORAL Moderate Pain (Pain Scale 4-6) 10/21/19 15:15 10/28/19 15:14 10/23/19 11:32 Apixaban (Eliquis) 2.5 mg BID ORAL 10/24/19 18:00 01/17/20 13:38 10/25/19 09:10 Aspirin (ASA) 81 mg DAILY ORAL 10/19/19 09:00 12/03/19 08:59 10/25/19 09:10 Atorvastatin Calcium (Lipitor) 20 mg BEDTIME ORAL 10/20/19 21:00 01/18/20 20:59 10/24/19 20:34 Bisacodyl (Dulcolax) 10 mg DAILYPRN PRN RECTAL Constipation 10/23/19 17:30 01/21/20 17:29 10/24/19 00:39 Ceftriaxone Sodium 1 gm/ Sodium Chloride 55 ml @ 110 mls/hr Q24H IVPB 10/26/19 09:00 10/30/19 08:59 Dextrose (Dextrose 50%) 25 ml Q30M PRN IV Hypoglycemia 10/22/19 12:00 01/20/20 11:59 Dextrose (Dextrose 50%) 50 ml Q30M PRN IV Hypoglycemia 10/22/19 12:00 01/20/20 11:59 Dextrose/ Electrolytes 1,000 ml @ 50 mls/hr Q20H IV 10/24/19 11:45 11/20/19 11:44 10/25/19 09:12 Docusate Sodium (Colace) 100 mg TWICE A DAY ORAL 10/23/19 18:00 11/22/19 17:59 10/25/19 09:10 Hydralazine HCl (Apresoline) 25 mg Q12HR ORAL 10/25/19 21:00 01/18/20 17:59 Insulin Aspart (NovoLOG) BEFORE MEALS AND HS SUBQ 10/22/19 16:30 01/20/20 16:29 10/25/19 06:36 Levalbuterol HCl (Xopenex) 1.25 mg Q4H PRN HHN Shortness of Breath 10/22/19 18:15 10/27/19 18:14 10/22/19 20:04 Levothyroxine Sodium (Synthroid) 75 mcg DAILY@0630 ORAL 10/19/19 07:30 11/18/19 07:29 10/25/19 05:54 Lorazepam (Ativan) 0.5 mg Q6H PRN ORAL For Anxiety 10/21/19 05:15 10/28/19 05:14 Memantine (Namenda) 5 mg DAILY ORAL 10/21/19 09:00 11/20/19 08:59 10/25/19 09:10 Metoprolol Tartrate (Lopressor) 25 mg Q12HR ORAL 10/20/19 21:00 01/18/20 20:59 10/25/19 09:10 Morphine Sulfate (Morphine Sulfate) 2 mg Q4H PRN IVP Moderate Pain (Pain Scale 4-6) 10/19/19 03:45 10/26/19 03:44 10/24/19 11:29 Multivitamins Therapeutic (Therapeutic Multivitamin) 1 ea DAILY ORAL 10/19/19 09:00 11/18/19 08:59 10/25/19 09:10 Nitroglycerin (Ntg) 0.4 mg Q5M PRN SL Prn Chest Pain 10/19/19 07:00 11/18/19 06:59 Assessment/Plan Problems: (1) Nosocomial pneumonia (2) Iron deficiency anemia (3) Closed comminuted intertrochanteric fracture of left femur (4) Chronic atrial fibrillation (5) Chronic anticoagulation (6) History of CVA (cerebrovascular accident) (7) GERD (gastroesophageal reflux disease) (8) Hypothyroid Assessment/Plan CT scan of chest reviewed, the RUL infiltrate on CXR is not there any more afebrile, wbc wnl Venofer IV times one heart rate controlled, sinus with PAC, and episodes of afib ID consult requested. continue Ceftriaxone for now dvt prophylaxis pain management Obey Daniel MD Oct 25, 2019 11:34
[2019-10-25] MEDS ORDERED: LOPRESSOR25 M1 ORAL (11:39)
[2019-10-25] MEDS ORDERED: HYDRALAZINE HCL25 M1 ORAL (11:39)
[2019-10-25] MEDS ORDERED: HYDROCODON-ACE1 EA15 ORAL (11:39)
[2019-10-25] MEDS ORDERED: CEFTRIAXONE1 G1 IJ (11:39)
--- NOTE | 2019-10-25 11:55 | General Progress Note ---
Assessment/Plan Problem List: (1) Troponin level elevated ICD Codes: R79.89 - Other specified abnormal findings of blood chemistry SNOMED: 911783497, 186262398, 133332352 (2) GERD (gastroesophageal reflux disease) ICD Codes: K21.9 - Gastro-esophageal reflux disease without esophagitis SNOMED: 368750974 (3) Hypothyroid ICD Codes: E03.9 - Hypothyroidism, unspecified SNOMED: 58156388 (4) HTN (hypertension) ICD Codes: I10 - Essential (primary) hypertension SNOMED: 52911098 (5) Closed comminuted intertrochanteric fracture of left femur ICD Codes: S72.142A - Displaced intertrochanteric fracture of left femur, initial encounter for closed fracture SNOMED: 930008948, [id number] Status: stable, progressing Assessment/Plan: o2 pulm tx pt diet cardio ortho f/u dc to aru if clear by all Subjective Constitutional: Reports: weakness Allergies: Coded Allergies: No Known Allergies (Unverified , 04/17/19) All Systems: reviewed and negative except above Subjective o2nc calm sleepy Objective Last 24 Hour Vital Signs Date Time Temp Pulse Resp B/P (MAP) Pulse Ox O2 Delivery O2 Flow Rate FiO2 10/25/19 09:10 78 136/64 10/25/19 09:10 136/64 10/25/19 09:00 Nasal Cannula 2.0 Nasal Cannula 2.0 10/25/19 08:00 98.9 78 18 136/64 (88) 100 10/25/19 08:00 78 10/25/19 07:30 64 20 98 Nasal Cannula 2.0 28 10/25/19 07:30 98 Nasal Cannula 2.0 28 10/25/19 04:00 66 10/25/19 04:00 97.9 69 18 121/51 (74) 95 10/25/19 00:00 98.5 62 16 101/49 (66) 96 10/25/19 00:00 64 10/24/19 21:00 Nasal Cannula 2.0 Nasal Cannula 2.0 10/24/19 20:34 67 105/61 10/24/19 20:00 68 10/24/19 20:00 99.1 73 18 110/51 (70) 96 10/24/19 19:20 98 Nasal Cannula 2.0 28 10/24/19 19:20 96 20 98 Nasal Cannula 2.0 28 10/24/19 17:40 113/43 10/24/19 16:00 69 10/24/19 16:00 98.1 66 20 113/43 (66) 96 10/24/19 12:00 96.6 64 22 103/38 (59) 97 10/24/19 12:00 65 Intake and Output 10/24/19 10/25/19 19:00 07:00 Output Total 100 ml Balance -100 ml Output Urine Total 100 ml # Voids 3 2 Laboratory Tests 10/24/19 17:15: POC Whole Blood Glucose 139H 10/24/19 17:30: Urine Color Kimberly, Urine Appearance Slightly cloudy, Urine pH 6, Urine Specific [place] 1.015, Urine Protein 2+H, Urine Glucose (UA) 3+H, Urine Ketones Negative , Urine Blood 5+H, Urine Nitrite Negative, Urine Bilirubin Negative, Urine Ictotest Negative, Urine Urobilinogen 1H, Urine Leukocyte Esterase 1+H, Urine RBC TntcH, Urine WBC 5-10H, Urine Squamous Epithelial Cells ModerateH, Urine Bacteria ModerateH, Stool Occult Blood [Pending] 10/24/19 20:41: POC Whole Blood Glucose 177H 10/25/19 03:40: White Blood Count 7.6, Red Blood Count 3.14L, Hemoglobin 8.3L, Hematocrit 27.4L , Mean Corpuscular Volume 87, Mean Corpuscular Hemoglobin 26.4L, Mean Corpuscular Hemoglobin Concent 30.2L, Red Cell Distribution Width 13.8, Platelet Count 322, Mean Platelet Volume 4.1L, Neutrophils (%) (Auto) 62.1, Lymphocytes (%) (Auto) 20.9, Monocytes (%) (Auto) 9.7, Eosinophils (%) (Auto) 5.1H, Basophils (%) (Auto) 2.2H, Sodium Level 133L, Potassium Level 4.7, Chloride Level 101, Carbon Dioxide Level 22, Anion Gap 10, Blood Urea Nitrogen 22H, Creatinine 0.8, Estimat Glomerular Filtration Rate > 60, Glucose Level 177H , Calcium Level 8.6 10/25/19 05:55: POC Whole Blood Glucose [Pending] Height (Feet): 5 Height (Inches): 4.00 Weight (Pounds): 138 General Appearance: lethargic EENT: normal ENT inspection Neck: normal alignment Cardiovascular: normal rate, regular rhythm Respiratory/Chest: no respiratory distress, no accessory muscle use Extremities: normal inspection Skin: normal pigmentation Jesus Palomo DO Oct 25, 2019 11:55
[2019-10-25 12:00] VITALS: BP 119/50
--- NOTE | 2019-10-25 12:15 | Progress Note ---
DATE: 10/25/2019 SUBJECTIVE: This is an 89-year-old female patient, who came to the hospital secondary to hip fracture, but she has got some confusion, some disorganized thought process. She has got auditory hallucination and she has some paranoid delusions, that is why she does require inpatient treatment at this time. She has got feelings of helplessness, hopelessness, low energy, and poor appetite. She also has confusion and altered mental status as well. In addition to her GERD, troponin level elevated, history of CVA, hypertension, hypothyroidism, respiratory insufficiency, anemia, and nosocomial pneumonia. That is why she does require acute psychiatric inpatient treatment at this time. MENTAL STATUS EXAMINATION: This is an 89-year-old female. Appearance is disheveled. Attitude, irritable and agitated. Affect, guarded and restricted. Intellect, poor. Mood, depressed and anxious. Motor activity, psychomotor agitation. Attention span is poor. Orientation x2. Speech is low volume and slurred. Thought process, disorganized and illogical. Insight and judgment is poor. DIAGNOSIS: Major depressive disorder, mild, recurrent with psychotic features, rule out dementia with psychosis. PLAN: I am going to treat her with a medication regimen consisting of Namenda 5 mg daily and Ativan 0.5 mg every six hours p.r.n. anxiety or agitation. A 20 minutes of reality-based supportive therapy provided. I encouraged her to interact appropriately with the staff and other patients. Chart reviewed. Discussed with staff. Seen and assessed at bedside. Edd Weiner M.D. DR: NASH JOB#: [id number] CC:
--- NOTE | 2019-10-25 14:58 | Cardiac Electrophysiology PN ---
Assessment/Plan Assessment/Plan 1. Atrial fibrillation with RVR 130s. 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 Eliquis resumed at 2.5 bid in view of age of 89 and recent surgery 2. NSTEMI with lateral ischemia. Troponin levels were 0.33 to 0.2 to 0.1 Post op troponin went up to 6 and then down to 2.5. Denies any chest pain. Will treat medically with aspirin 81 mg daily and lopressor 25 bid and Lipitor 20. Likely demand ischemia in this 89 year old with atrial fib with RVR and hip Fx. Echo Nl EF 3. Hypertension, on hydralazine 25 mg bid and Lopressor 25 bid 4. Status post fall and left hip fracture. S/P surgery by Dr Tracy. Echocardiogram showed Nl EF 60%. 5. 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 No CP. Comfortable in NAD. Being DCed to [facility] Objective Last 24 Hour Vital Signs Date Time Temp Pulse Resp B/P (MAP) Pulse Ox O2 Delivery O2 Flow Rate FiO2 10/25/19 12:00 69 10/25/19 12:00 97.9 89 18 119/50 (73) 99 10/25/19 09:10 78 136/64 10/25/19 09:10 136/64 10/25/19 09:00 Nasal Cannula 2.0 Nasal Cannula 2.0 10/25/19 08:00 98.9 78 18 136/64 (88) 100 10/25/19 08:00 78 10/25/19 07:30 64 20 98 Nasal Cannula 2.0 28 10/25/19 07:30 98 Nasal Cannula 2.0 28 10/25/19 04:00 66 10/25/19 04:00 97.9 69 18 121/51 (74) 95 10/25/19 00:00 98.5 62 16 101/49 (66) 96 10/25/19 00:00 64 10/24/19 21:00 Nasal Cannula 2.0 Nasal Cannula 2.0 10/24/19 20:34 67 105/61 10/24/19 20:00 68 10/24/19 20:00 99.1 73 18 110/51 (70) 96 7/8/20 19:20 98 Nasal Cannula 2.0 28 10/24/19 19:20 96 20 98 Nasal Cannula 2.0 28 10/24/19 17:40 113/43 10/24/19 16:00 69 10/24/19 16:00 98.1 66 20 113/43 (66) 96 Intake and Output 10/24/19 10/25/19 19:00 07:00 Output Total 100 ml Balance -100 ml Output Urine Total 100 ml # Voids 3 2 Laboratory Tests Test 10/24/19 17:15 10/24/19 17:30 10/24/19 20:41 10/25/19 03:40 POC Whole Blood Glucose 139 MG/DL (74-106) H 177 MG/DL (74-106) H Urine Color Kimberly Urine Appearance Slightly cloudy Urine pH 6 (4.5-8.0) Urine Specific [place] 1.015 (1.005-1.035) Urine Protein 2+ (NEGATIVE) H Urine Glucose (UA) 3+ (NEGATIVE) H Urine Ketones Negative (NEGATIVE) Urine Blood 5+ (NEGATIVE) H Urine Nitrite Negative (NEGATIVE) Urine Bilirubin Negative (NEGATIVE) Urine Ictotest Negative (NEGATIVE) Urine Urobilinogen 1 MG/DL (0.0-1.0) H Urine Leukocyte Esterase 1+ (NEGATIVE) H Urine RBC Tntc /HPF (0 - 2) H Urine WBC 5-10 /HPF (0 - 2) H Urine Squamous Epithelial Cells Moderate /LPF (NONE/OCC) H Urine Bacteria Moderate /HPF (NONE) H Stool Occult Blood Pending White Blood Count 7.6 K/UL (4.8-10.8) Red Blood Count 3.14 M/UL (4.20-5.40) L Hemoglobin 8.3 G/DL (12.0-16.0) L Hematocrit 27.4 % (37.0-47.0) L Mean Corpuscular Volume 87 FL (80-99) Mean Corpuscular Hemoglobin 26.4 PG (27.0-31.0) L Mean Corpuscular Hemoglobin Concent 30.2 G/DL (32.0-36.0) L Red Cell Distribution Width 13.8 % (11.6-14.8) Platelet Count 322 K/UL (150-450) Mean Platelet Volume 4.1 FL (6.5-10.1) L Neutrophils (%) (Auto) 62.1 % (45.0-75.0) Lymphocytes (%) (Auto) 20.9 % (20.0-45.0) Monocytes (%) (Auto) 9.7 % (1.0-10.0) Eosinophils (%) (Auto) 5.1 % (0.0-3.0) H Basophils (%) (Auto) 2.2 % (0.0-2.0) H Sodium Level 133 MMOL/L (136-145) L Potassium Level 4.7 MMOL/L (3.5-5.1) Chloride Level 101 MMOL/L (98-107) Carbon Dioxide Level 22 MMOL/L (21-32) Anion Gap 10 mmol/L (5-15) Blood Urea Nitrogen 22 mg/dL (7-18) H Creatinine 0.8 MG/DL (0.55-1.30) Estimat Glomerular Filtration Rate > 60 mL/min (>60) Glucose Level 177 MG/DL (74-106) H Calcium Level 8.6 MG/DL (8.5-10.1) Test 10/25/19 05:55 POC Whole Blood Glucose Pending Microbiology Date/Time Source Procedure Growth Status 10/23/19 11:55 Blood Blood Culture - Preliminary NO GROWTH AFTER 24 HOURS Resulted 10/23/19 11:55 Blood Blood Culture - Preliminary NO GROWTH AFTER 24 HOURS Resulted 10/23/19 12:45 Nasopharynx Coronavirus COVID-19 PCR (AURELIO) - Final Complete 10/24/19 17:30 Urine,Clean Catch Urine Culture - Preliminary NO GROWTH Resulted Objective HEAD AND NECK: No JVD. LUNGS: Clear. CARDIOVASCULAR: Irregular S1 and S2 with no gallop. ABDOMEN: Soft. EXTREMITIES: No pitting edema.S/P hip surgery Rajat Zamudio MD Oct 25, 2019 14:58
[2019-10-25] MEDS ORDERED: HydrALAZINE 25mg tab ORAL SCH (21:00)
[2019-10-26] MEDS ORDERED: cefTRIAXone 1 GM in NS 55 ML IVPB SCH (09:00)
--- NOTE | 2019-10-27 11:00 | Diagnostic Imaging Report ---
INDICATION: Pain, intraoperative TECHNIQUE: Intraoperative imaging Fluoroscopy time: 23.2 seconds Total dose: 0.24803 mGym2 Total number of images: 13 COMPARISON: 10/19/2019 pelvic radiograph FINDINGS: Intraoperative images document surgical repair of previously demonstrated intertrochanteric fracture with medullary susannah and compression screw IMPRESSION: Intraoperative imaging, as described
--- NOTE | 2019-10-29 12:01 | Discharge Summary ---
Discharge Summary Discharge Summary _ DATE OF ADMISSION: 10/19/2019 DATE OF DISCHARGE: 10/25/2019 DISCHARGED BY: Dr. Palomo REASON FOR ADMISSION: 89 years old female with past medical history of hypertension, hyperlipidemia, A. fib, CVA, hypothyroidism, GERD, presented to emergency department after fall. Patient apparently slipped on the wet floor hitting her left buttock on the ground. She denied head trauma or loss of consciousness. Patient was taking aspirin. She denied chest pain, shortness of breath, headache, focal weakness. No abdominal pain, nausea or vomiting. Upon evaluation patient was slightly tachycardic, tachypneic, blood pressure was elevated 168/86, pulse oximetry was stable on room air. Laboratory work-up revealed no leukocytosis, stable hemoglobin hematocrit and platelet count. Stable electrolytes. BUN 25, creatinine 0.9. Glucose 248. Stable LFT. Albumin 4.2. Initial troponin 0.374, repeated 0.241. EKG revealed atrial fibrillation with controlled ventricular response. Echocardiogram demonstrated preserved ejection fraction of 60%. No evidence of WMA. Mild left ventricular hypertrophy. Right ventricular systolic pressure of 29. Chest x-ray demonstrated cardiomegaly, chronic opacity left upper lobe, possibly scaring, atelectasis or edema, no pneumothorax or pleural effusion. CT of the head revealed no acute intracranial pathology. CT of the pelvis demonstrated comminuted left femoral intertrochanteric fracture. X-ray of the pelvis confirmed comminuted left femoral intertrochanteric fracture. In emergency department patient received analgesics and admitted for further management to telemetry floor. CONSULTANTS: inspector aligning Dr. Cat pulmonary Dr. Daniel ID specialist Dr. Llamas orthopedic surgery Dr. Moreira psychiatrist Dr. Weiner [facility]SE: Patient admitted to telemetry floor. Supplemental oxygen provided and titrated to keep pulse oximetry above 92%. Pulmonary toilet was on standby as needed. Pain management was addressed. Patient initially was kept in isolation. COVID-19 on 10/18 came back not detected. Per inspector aligning, patient remained at high risk for perioperative mortality due to her age, tachybradycardia syndrome and possible NSTEMI. Serial troponin initially trended down Patient subsequently undergone on 10/21 open reduction internal fixation of left hip fracture/hip nailing. P Postoperatively pain management was addressed. Hip precaution maintained. Patient was working with a physical therapist. Fall precaution maintained. Repeated COVID-19 by PCR on 10/22 was not detected as well. Patient was found to be in atrial fibrillation with a rapid ventricular response. Eliquis was resumed at dose 2.5 mg twice daily in view of her age and recent surgery post-operatively. Heart rate was controlled with beta-ben. Troponin levels were closely monitored. Initially troponin trending down and on the day of the surgery postoperatively troponin up to 6 and then down to 2.5. Patient denied chest pain. Patient was treated medically with aspirin, beta-ben and statin. Per inspector aligning, patient likely had demand ischemia due to atrial fibrillation with rapid ventricular response and hip fracture Blood pressure was managed as per inspector aligning recommendation. Blood cultures were negative. Urine culture were negative. Hemoglobin A1c found to be 7.3. Diabetic diet provided. Blood sugar was managed with sliding scale of insulin. Bowel regimen instituted. Hemoglobin and hematocrit were closely monitored with goal to keep hemoglobin above 7. Anemia work-up revealed evidence of anemia of iron deficiency. Patient received IV iron while in the hospital. Psychiatrist followed. Psychiatric medication regimen was optimized as per psychiatrist. Reality orientation provided. Patient subsequently clinically stabilized and was [place] [facility] [place]. FINAL DIAGNOSES: Left displaced intertrochanteric hip fracture secondary to fall Status post open reduction internal fixation left hip /left hip nailing Atrial fibrillation with rapid ventricular response-resolved NSTEMI likely demand ischemia due to A fib with RVR and hip fracture Hypertension History of CVA Hypothyroidism GERD Major depressive disorder, mild, recurrent with psychotic features, Anemia DISCHARGE MEDICATIONS: See Medication Reconciliation list. DISCHARGE INSTRUCTIONS: [place] was [place] [facility] I have been assigned to dictate discharge summary for this account. Olivia Shannon NP Oct 29, 2019 12:01
== END 2019-10-25 14:53 | disposition short-term general hospital (02) | DRG 480 ==
LOC: EDBD 00:06 → EDUNIT# 00:06 → EMR 00:25 → 4E 01:05 → EDBEDREQ 01:10 → 2E 14:58
PROC: 0QH936Z Insertion of Intramedullary Internal Fixation Device into Left Femoral Shaft, Percutaneous Approach (ICD-10-PCS; principal; 2019-10-21 13:00)
DX: S72.142A Displaced intertrochanteric fracture of left femur, initial encounter for closed fracture (principal); I21.4 Non-ST elevation (NSTEMI) myocardial infarction; J18.9 Pneumonia, unspecified organism; F33.3 Major depressive disorder, recurrent, severe with psychotic symptoms; Z20.828 Contact with and (suspected) exposure to other viral communicable diseases; K21.9 Gastro-esophageal reflux disease without esophagitis; E03.9 Hypothyroidism, unspecified; I10 Essential (primary) hypertension; I48.91 Unspecified atrial fibrillation; Z79.01 Long term (current) use of anticoagulants; D50.9 Iron deficiency anemia, unspecified; E11.65 Type 2 diabetes mellitus with hyperglycemia; Y95 Nosocomial condition; I49.5 Sick sinus syndrome; Z86.73 Personal history of transient ischemic attack (TIA), and cerebral infarction without residual deficits
CPT/HCPCS: 36415; 36600; 70450; 71045; 71260; 72170; 72192; 76000; 80048; 80053; 80061; 80076; 81003; 82378; 82607; 82746; 82803; 82962; 83036; 83540; 83550; 83615; 83735; 83880; 84443; 84484; 85007; 85025; 85044; 85060; 85610; 85651; 85730; 86850; 86900; 86901; 87040; 87081; 87086; 93005; 93306; 94003; 94150; 94640; 94664; 96361; 96374; 96375; 97803; 99285; J1815; J7030; J7620

== ENCOUNTER 2020-01-28 14:38 | Inpatient (IN) | payer MEDICARE, OTHER ==
[~2020-01-28] VITALS: Ht 154.9 cm; Wt 54.2 kg
[~2020-01-28 14:38] MED LIST changes: +CEFTRIAXONE1 G1 IJ; +HYDRALAZINE HCL25 M1 ORAL; +HYDROCODON-ACE1 EA15 ORAL; +LOPRESSOR25 M1 ORAL
[2020-01-28 15:05] VITALS: BP 114/65
--- NOTE | 2020-01-28 15:40 | NUR ---
ED Nurse Note: Pt came via [facility] for general weakness. Pt testes COVID positive recently. Pt is alert and orientedx0. Pt has been seen by ERMD. IV established and blood sent to lab. Set up on monitor.
[2020-01-28] MEDS ORDERED: LORazepam Inj 2mg/ml 1ml IV ONE (16:00)
[2020-01-28 16:19] LABS: BASOPHILS % (AUTO) 1.2 % (0.0-2.0); EOSINOPHILS % (AUTO) 0.5 % (0.0-3.0); HEMATOCRIT 37.6 % (37.0-47.0); HEMOGLOBIN 11.4 G/DL (12.0-16.0); LYMPHOCYTES % (AUTO) 25.6 % (20.0-45.0); MEAN CORPUSCULAR VOLUME 83 FL (80-99); MONOCYTES % (AUTO) 3.3 % (1.0-10.0); NEUTROPHILS % (AUTO) 69.4 % (45.0-75.0); PLATELET COUNT 380 K/UL (150-450); RED BLOOD COUNT 4.52 M/UL (4.20-5.40); RED CELL DISTRIBUTION WIDTH 17.5 % (11.6-14.8); WHITE BLOOD COUNT 7.8 K/UL (4.8-10.8)
--- NOTE | 2020-01-28 16:19 | Emergency Room Report ---
History of Present Illness General Chief Complaint: Generalized Weakness Source: Patient, Medical Record, EMS Present Illness HPI 89-year-old female presents ED for evaluation. Brought in by EMS from [facility] facility. Noted to be weak. Patient has tested positive for COVID. No signs of distress on arrival. Patient cannot verbalize any specific complaints. No other aggravating relieving factors. Denies any other associated symptoms Allergies: Coded Allergies: No Known Allergies (Unverified , 04/17/19) COVID-19 Screening Contact w/high risk pt: No Recent Travel to affected area: No Experienced COVID-19 symptoms?: No COVID-19 Testing performed CAR GREASER: Yes COVID-19 Screening: Positive COVID-19 COVID-19 Testing Source: nasal Patient History Past Medical History: HTN, AFib, CVA/TIA Past Surgical History: none Pertinent Family History: none Social History: Denies: smoking, alcohol use, drug use Now: No Immunizations: UTD Reviewed Nursing Documentation: PMH: Agreed; PSxH: Agreed Nursing Documentation-PMH Past Medical History: No History, Except For Hx Cardiac Problems: Yes - unspecific cardiac arrhythmia, hyperlipidemia, AFib, Hx Hypertension: Yes Hx Pacemaker: No Hx Asthma: No Hx COPD: No Hx Diabetes: No Hx Cancer: No Hx Gastrointestinal Problems: Yes Hx Dialysis: No Hx Neurological Problems: No Hx Cerebrovascular Accident: Yes Hx Seizures: No Review of Systems All Other Systems: limited Physical Exam Vital Signs Date Time Temp Pulse Resp B/P (MAP) Pulse Ox O2 Delivery O2 Flow Rate FiO2 01/28/20 14:43 16 104/60 (75) 98 Nasal Cannula 2.0 Sp02 EP Interpretation: reviewed, normal General Appearance: no apparent distress, alert, GCS 15, non-toxic, thin Head: normocephalic, atraumatic Eyes: bilateral eye normal inspection, bilateral eye PERRL ENT: hearing grossly normal, normal pharynx, no angioedema, normal voice Neck: full range of motion, supple/symm/no masses Respiratory: chest non-tender, lungs clear, normal breath sounds, speaking full sentences Cardiovascular #1: regular rate, rhythm, no edema Cardiovascular #2: 2+ carotid (R), 2+ carotid (L), 2+ radial (R), 2+ radial (L), 2+ dorsalis pedis (R), 2+ dorsalis pedis (L) Gastrointestinal: normal bowel sounds, non tender, soft, non-distended, no guarding, no rebound Rectal: deferred Genitourinary: normal inspection, no CVA tenderness Musculoskeletal: back normal, normal range of motion, gait/station normal, non- tender Neurologic: other - nonverbal Psychiatric: other - nonverbal Reflexes: 3+ bicep (R), 3+ bicep (L), 3+ tricep (R), 3+ tricep (L), 3+ knee (R), 3+ knee (L) Skin: other - no nursing skin notes Lymphatic: no adenopathy Medical Decision Making Diagnostic Impression: Primary Impression: Episode of generalized weakness Additional Impressions: COVID-19 Chronic atrial fibrillation UTI (urinary tract infection) Qualified Codes: N39.0 - Urinary tract infection, site not specified ER Course Hospital Course 89-year-old female presents for increased weakness recent positive COVID results Differential diagnoses include: Pneumonia, CHF exacerbation, pneumothorax, fluid overload Clinical course Patient placed on stretcher. In isolation. I wore full PPE. On bus driver/monitor with stable vitals. After initial history and physical, I ordered labs, IV fluids, EKG, chest x-ray, blood cultures, UA. Labs - no leukocytosis, hemoglobin/hematocrit stable,electrolytes okay, lactate okay troponins negative Dimer elevated, CRP elevated CXR - no focal consolidation EKG - afib, no acute ischemic changes interpreted by me COVID test here negative. We will keep patient in isolation. Inflammatory markers elevated. Given dexamethasone. Given Lovenox. And antibiotics. Case discussed with Dr. Palomo and he agreed to the patient to his service for further care and support I feel this is a highly complex case requiring extensive working including EKG/Rhythm strip, Xray/CT/US, Blood/urine lab work, repeat exams while in ED, and administration of strong opiates/narcotics for pain control, admission to hospital or close patient follow up. Diagnosis -episode of generalized weakness, COVID-19, chronic A. fib, UTI Patient admitted to floor in serious condition Laboratory Tests Test 01/28/20 15:23 01/28/20 16:06 White Blood Count 7.8 K/UL (4.8-10.8) Red Blood Count 4.52 M/UL (4.20-5.40) Hemoglobin 11.4 G/DL (12.0-16.0) L Hematocrit 37.6 % (37.0-47.0) Mean Corpuscular Volume 83 FL (80-99) Mean Corpuscular Hemoglobin 25.1 PG (27.0-31.0) L Mean Corpuscular Hemoglobin Concent 30.2 G/DL (32.0-36.0) L Red Cell Distribution Width 17.5 % (11.6-14.8) H Platelet Count 380 K/UL (150-450) Mean Platelet Volume 4.7 FL (6.5-10.1) L Neutrophils (%) (Auto) 69.4 % (45.0-75.0) Lymphocytes (%) (Auto) 25.6 % (20.0-45.0) Monocytes (%) (Auto) 3.3 % (1.0-10.0) Eosinophils (%) (Auto) 0.5 % (0.0-3.0) Basophils (%) (Auto) 1.2 % (0.0-2.0) Prothrombin Time 11.5 SEC (9.30-11.50) Prothromb Time International Ratio 1.0 (0.9-1.1) Activated Partial Thromboplast Time 26 SEC (23-33) D-Dimer 8.58 mg/L FEU (0.00-0.49) H Sodium Level 139 MMOL/L (136-145) Potassium Level 4.3 MMOL/L (3.5-5.1) Chloride Level 102 MMOL/L (98-107) Carbon Dioxide Level 30 MMOL/L (21-32) Anion Gap 7 mmol/L (5-15) Blood Urea Nitrogen 19 mg/dL (7-18) H Creatinine 0.6 MG/DL (0.55-1.30) Estimat Glomerular Filtration Rate > 60 mL/min (>60) Glucose Level 125 MG/DL (74-106) H Lactic Acid Level 1.20 mmol/L (0.4-2.0) Calcium Level 10.1 MG/DL (8.5-10.1) Ferritin 45 NG/ML (8-388) Total Bilirubin 0.3 MG/DL (0.2-1.0) Aspartate Amino Transf (AST/SGOT) 19 U/L (15-37) Alanine Aminotransferase (ALT/SGPT) 12 U/L (12-78) Alkaline Phosphatase 61 U/L (46-116) Lactate Dehydrogenase 166 U/L (81-234) Total Creatine Kinase 45 U/L (26-308) Creatine Kinase MB 1.0 NG/ML (0.0-3.6) Creatine Kinase MB Relative Index 2.2 Troponin I 0.008 ng/mL (0.000-0.056) C-Reactive Protein, Quantitative 1.8 mg/dL (0.00-0.90) H Pro-B-Type Natriuretic Peptide 3994 pg/mL (0-125) H Total Protein 7.2 G/DL (6.4-8.2) Albumin 3.0 G/DL (3.4-5.0) L Globulin 4.2 g/dL Albumin/Globulin Ratio 0.7 (1.0-2.7) L Lipase 125 U/L (73-393) Urine Color Pale yellow Urine Appearance Slightly cloudy Urine pH 7 (4.5-8.0) Urine Specific [place] 1.010 (1.005-1.035) Urine Protein 1+ (NEGATIVE) H Urine Glucose (UA) Negative (NEGATIVE) Urine Ketones Negative (NEGATIVE) Urine Blood Negative (NEGATIVE) Urine Nitrite Negative (NEGATIVE) Urine Bilirubin Negative (NEGATIVE) Urine Urobilinogen Normal MG/DL (0.0-1.0) Urine Leukocyte Esterase 2+ (NEGATIVE) H Urine RBC 0-2 /HPF (0 - 2) Urine WBC 10-15 /HPF (0 - 2) H Urine Squamous Epithelial Cells Few /LPF (NONE/OCC) Urine Bacteria Moderate /HPF (NONE) H EKG Diagnostic Results Rate: normal Rhythm: other - afib ST Segments: no acute changes ASA given to the pt in ED: No Rhythm Strip Diag. Results EP Interpretation: yes Rhythm: no PVC's, no ectopy Chest X-Ray Diagnostic Results Chest X-Ray Diagnostic Results : Chest X-Ray Ordered: Yes # of Views/Limited/Complete: 1 View Indication: Other EP Interpretation: Yes Interpretation: no consolidation, no pneumothorax, no acute cardiopulmonary disease, other - small L sided effusio Impression: Other - pleural effusion Electronically Signed by: Electronically signed by Orion Aviles MD Last Vital Signs Date Time Temp Pulse Resp B/P (MAP) Pulse Ox O2 Delivery O2 Flow Rate FiO2 01/28/20 14:43 16 104/60 (75 98 Nasal Cannula 2.0 Status: improved Disposition: ADMITTED INPATIENT Condition: Serious Referrals: Jesus Palomo DO (PCP) Orion Aviles MD Jan 28, 2020 16:18
[2020-01-28 16:43] LABS: ALANINE AMINOTRANSFERASE 12 U/L (12-78); ALBUMIN/GLOBULIN RATIO 0.7 (1.0-2.7); ALKALINE PHOSPHATASE 61 U/L (46-116); ANION GAP 7 mmol/L (5-15); ASPARTATE AMINO TRANSFERASE 19 U/L (15-37); BILIRUBIN,TOTAL 0.3 MG/DL (0.2-1.0); BLOOD UREA NITROGEN 19 mg/dL (7-18); CALCIUM 10.1 MG/DL (8.5-10.1); CARBON DIOXIDE 30 MMOL/L (21-32); CHLORIDE 102 MMOL/L (98-107); CREATINE KINASE 45 U/L (26-308); CREATININE 0.6 MG/DL (0.55-1.30); FERRITIN 45 NG/ML (8-388); LACTATE DEHYDROGENASE 166 U/L (81-234); POTASSIUM 4.3 MMOL/L (3.5-5.1); SODIUM 139 MMOL/L (136-145)
[2020-01-28 16:46] LABS: APPEARANCE,URINE SLIGHTLY CLOUDY; BILIRUBIN, URINE NEGATIVE (NEGATIVE); COLOR,URINE PALE YELLOW; GLUCOSE, URINE (UA) NEGATIVE (NEGATIVE); KETONES,URINE NEGATIVE (NEGATIVE); LEUKOCYTE ESTERASE ,URINE 2+ (NEGATIVE); NITRITE,URINE NEGATIVE (NEGATIVE); PH,URINE 7 (4.5-8.0); PROTEIN,URINE 1+ (NEGATIVE); UROBILINOGEN,URINE NORMAL MG/DL (0.0-1.0)
[2020-01-28] MEDS ORDERED: MIRTAZAPINE15 MG ORAL (16:47)
[2020-01-28] MEDS ORDERED: NAMENDA5 MG ORAL (16:47)
[2020-01-28] MEDS ORDERED: MULTI VITAMIN1 EACH ORAL (16:47)
[2020-01-28] MEDS ORDERED: Enoxaparin 100mg Inj SUBQ ONE (17:00)
[2020-01-28 17:20] VITALS: BP 122/83
--- NOTE | 2020-01-28 17:33 | NUR ---
ED Nurse Note: Report given to Brea DELCID MS floor.
--- NOTE | 2020-01-28 17:40 | NUR ---
ED Nurse Note: MRSA, VRE and CRE sent to lab.
[2020-01-28] MEDS ORDERED: dexAMETHasone 10mg/ml Inj IV ONE (17:45)
--- NOTE | 2020-01-28 17:55 | NUR ---
ED Nurse Note: Transferred to CT with all belongings. Pt is alert and orientedx0. No acute distress.
--- NOTE | 2020-01-28 18:10 | NUR ---
NURSE NOTES: Received report from BHAVIN Funes. Patient observed to be awake, alert and oriented x0. Seen lying in bed, currently on room air no s/sx of SOB/Distress, no c/o any pain or discomfort. Patient on contact and droplet precaution d/t (+) covid result 3 days ago. IV site located on Left Wrist gauge 22. asymptomatic, inplace and intact. All belongings checked and accounted for. Skin assessment done. Bed placed on lowest and locked position, call light placed within reach and will continue to monitor for any changes in condition.
[2020-01-28 19:00] VITALS: BP 124/62
--- NOTE | 2020-01-28 19:22 | NUR ---
NURSE HAND-OFF: Important Events on Shift:ADMIT TO UNIT Patient Status: STABLE Pending Orders: N/A Pending Results/Labs:N/A Pending MD notification:N/A Latest Vital Signs: Temperature 96.3 , Pulse 67 , B/P 124 /62 , Respiratory Rate 24 , O2 SAT 95 , Room Air Vital Sign Comment: STABLE Latest Martinez Fall Score: 80 Fall Risk: Safety Measures: Call light , Bed Alarm , Side Rails , Bed position . Fall Precautions: Report given to BHAVIN Banks.
--- NOTE | 2020-01-28 19:27 | Diagnostic Imaging Report ---
Indication: Shortness of breath Technique: One view of the chest Comparison: 10/23/2019 Findings: There is a right arm PICC. There is some atelectasis in the retrocardiac region. Lungs and pleural spaces are otherwise clear. Impression: Left basilar atelectasis. No acute process
--- NOTE | 2020-01-28 19:30 | NUR ---
NURSE NOTES: Received report from mikey prescott. patient on bed, asleep . on room air. no sob. with iv line on the left forearm, saline lock. noted with piccline on the right upper arm, double lumen. per genie " patient is non-verbal and has sacral stage 2 and multiple dti on bilateral foot. wound pictures taken by the am nurse. no facial grimacing noted. no moaning. no evidence of pain or discomfort. bed locked and in lowest position. call light and light button within easy reach. will observe isolation precautions. paged dr. logan, awaiting for call back.
--- NOTE | 2020-01-28 19:30 | NUR ---
NURSE NOTES: received patient from ED with PIcc line on the right upper arm, double lumen. unknown for the insertion date and length of the picc line. flushes per protocol. with good blood return. charge nurse made aware.
--- NOTE | 2020-01-28 20:30 | NUR ---
NURSE NOTES: per dr. logan to call dr. pinedo for orders. paged dr. pinedo. awaiting for orders.
--- NOTE | 2020-01-28 22:00 | NUR ---
NURSE NOTES: Received order from dr. pinedo.orders noted and carried out. charge nurse made aware.
[2020-01-28] MEDS ORDERED: Miralax 17gm pkt ORAL PRN (22:30)
[2020-01-28] MEDS ORDERED: Albuterol/Ipratropium 3ml neb HHN PRN (22:30)
[2020-01-28] MEDS ORDERED: Promethazine/Codeine 5ml UD ORAL PRN (22:30)
[2020-01-28] MEDS ORDERED: Azithromycin 250 MG in D5W 275 ML IV SCH (23:00)
[2020-01-28] MEDS: cefTRIAXone 1 GM in D5W 55 ML IVPB SCH (23:15)
[2020-01-29] VITALS: BP 112/56
[2020-01-29 04:00] VITALS: BP 130/72
[2020-01-29 06:22] LABS: BASOPHILS % (AUTO) 1.2 % (0.0-2.0); HEMATOCRIT 35.6 % (37.0-47.0); HEMOGLOBIN 11.3 G/DL (12.0-16.0); LYMPHOCYTES % (AUTO) 32.3 % (20.0-45.0); MEAN CORPUSCULAR VOLUME 79 FL (80-99); MONOCYTES % (AUTO) 2.8 % (1.0-10.0); NEUTROPHILS % (AUTO) 63.7 % (45.0-75.0); PLATELET COUNT 348 K/UL (150-450); RED BLOOD COUNT 4.52 M/UL (4.20-5.40); RED CELL DISTRIBUTION WIDTH 15.9 % (11.6-14.8); WHITE BLOOD COUNT 5.3 K/UL (4.8-10.8)
--- NOTE | 2020-01-29 06:22 | NUR ---
NURSE HAND-OFF: Important Events on Shift:admission; wound care; picc line care Patient Status: stable Diet:regular pureed, thin liquids Pending Orders: culture sputum with gram stain Pending Results/Labs:pending lab result Pending MD notification: paged dr. pinedo for order on the use of PICC line for iv and blood draw Latest Vital Signs: Temperature 98.3 , Pulse 75 , B/P 130 /72 , Respiratory Rate 24 , O2 SAT 96 , Room Air, O2 Flow Rate 2.0 . Vital Sign Comment: Latest Martinez Fall Score: 50 Fall Risk: High Risk Safety Measures: Call light Within Reach, Bed Alarm Zone 1, Side Rails Side Rails x2, Bed position Low and Locked. Fall Precautions: Yellow Socks Yellow Gown Door Sign Patient Fall Education Addendum: 01/29/20 at 0721 by Valerie Berumen RN HAND-OFF: Report given to mikey talbert.
[2020-01-29 06:26] LABS: ALBUMIN 2.5 G/DL (3.4-5.0); ANION GAP 10 mmol/L (5-15); BLOOD UREA NITROGEN 21 mg/dL (7-18); CALCIUM 8.7 MG/DL (8.5-10.1); CARBON DIOXIDE 24 MMOL/L (21-32); CHLORIDE 105 MMOL/L (98-107); CREATININE 0.4 MG/DL (0.55-1.30); PHOSPHORUS 3.1 MG/DL (2.5-4.9); POTASSIUM 3.8 MMOL/L (3.5-5.1); SODIUM 139 MMOL/L (136-145)
--- NOTE | 2020-01-29 07:19 | NUR ---
NURSE NOTES: Patient sleepy, non verbal, alert x0; on room air, no sing of distress and shortness of breath; no sing of chest pain; IV Left AR 22G flushes well; patient had PICC line admitted with, PM nurse communicated MD Daniel regarding the PICC line, if it is OK to use it or not, however MD Graves did not any order so far; wound dressing dry and intact; side rials up x2, breaks engaged, bed at lowest position, bed alarm on; call light within reach; will keep monitoring.
--- NOTE | 2020-01-29 07:25 | NUR ---
NURSE NOTES: received order from dr. pinedo to use picc line for iv and blood draw. endorsed to mikey talbert
[2020-01-29 08:00] VITALS: BP 158/76
[2020-01-29] MEDS: Azithromycin 250 MG in D5W 275 ML IV SCH ×2 (08:54→08:58)
[2020-01-29] MEDS: Heparin 5000 units/ml inj SUBQ SCH ×2 (08:57→22:05)
--- NOTE | 2020-01-29 09:31 | NUR ---
RD ASSESSMENT & RECOMMENDATIONS SEE CARE ACTIVITY FOR COMPLETE ASSESSMENT DAILY ESTIMATED NEEDS: Needs based on Wounds/ 46kg 25-35 kcals/kg 7636-2226 total kcals 1.25-1.5 g protein/kg 57-69 g total protein 25-30 mL/kg 2305-2576 total fluid mLs NUTRITION DIAGNOSIS: * Increased kcal/prot intake needs R/T wound healing as evidenced by pt admitted w/ wounds @ sacrum, BL heels, BL metatarsal, Rt inner foot, Lt ankle, pending evaluation. * Swallowing difficulty R/T decreased mentation, dysphagia as evidenced by pt on pureed moist texture diet. CURRENT DIET:Regular, pureed moist PO DIET RECOMMENDATIONS: Liberalized REGULAR/ texture per LEATHER CUTTER ENTERAL NUTRITION RECOMMENDATIONS: CONSULT RD IF TF INDICATED ADDITIONAL RECOMMENDATIONS: * LEATHER CUTTER evaluation for appropriate texture/ safety of oral diet * Monitor PO intake and tolerance, need for nonoral feeds * Wound healing: add MVI x 1, Vit C 500mg QD, ZnSO4 220mg QD x 10days Navdeep BID as tolerated * Calibrated bedscale wt * Monitor BGs closely w/ Decadron
[2020-01-29 12:00] VITALS: BP 119/60
--- NOTE | 2020-01-29 12:47 | NUR ---
NURSE NOTES:WOUND ASSESSMENT PATIENT AWAKE. UPON ARRIVAL FOUND LEFT ARM IV LINE PULLED OUT. PATIENT APPEARS CONFUSED BUT ABLE TO ASSIST WITH REPOSITIONING HERSELF IN BED. LEFT BUTTOCK-STAGE III PRESSURE WOUND MEASURING 1.0X1.6X0.2CM. NOTED 60% SLOUGH WITH PINK GRANULATION TISSUE. MINIMAL SERO-SANGUINEOUS DRAINAGE. RECOMMEND-CLEAN WITH SALINE AND PAT DRY. APPLY THERAHONEY AND COVER WITH OPITFOAM DRESSING. REPLACE DAILY AND PRN. LEFT HIP-STAGE II PRESSURE WOUND MEASURING 1.6X1.0X0.2CM. NOTED PINK GRANULATION TISSUE. RECOMMEND- CLEAN WITH SALINE AND PAT DRY. APPLY CALIZINE AND COVER WITH OPTIFOAM DRESSING. REPLACE DAILY AND PRN. RIGHT HEEL- DTI MEASURING 3.5X2.5X0.1CM. RIGHT LATERAL FOOT- STAGE I 1.3X1.0X0.0CM RIGHT MEDIAL FOOT- STAGE 1 3.5X2.5X0CM LEFT HEEL-DTI 4.0X1.0X0CM LEFT MEDIAL FOOT- STAGE I 1.8X1.5X0CM RECOMMEND FOR ALL FOOT WOUNDS- APPLY CAVILON/SKIN PROTECTOR AND COVER WITH OPTIFOAM DRESSING. REPLACE DAILY AND PRN. FLOAT HEELS WITH PILLOWS AND PAD LOWER EXTREMITIES WITH PILLOWS NEEDED WHEN REPOSITIONING PATIENT. SIDE TO SIDE.
--- NOTE | 2020-01-29 13:12 | Consultation ---
History of Present Illness General Date patient seen: Jan 29, 2020 Chief Complaint: Generalized Weakness Present Illness HPI 89 year old female with hx HTN, Afib, HLD, CVA/TIA, SNF resident, with recent COVID+ test, presented to ED on 01/28/20 with generalized weakness. She was af ebrile on presentation and initial COVID test was negative. she is admitted for further management. Allergies: Coded Allergies: No Known Allergies (Unverified , 04/17/19) Medication History Scheduled Aspirin* (Aspirin*), 81 MG ORAL DAILY, (Reported) Ceftriaxone Sodium (Ceftriaxone), 1 GM IJ DAILY Docusate Sodium* (Docusate Sodium*), 100 MG ORAL THREE TIMES A DAY, (Reported) Hydralazine Hcl* (Hydralazine Hcl*), 50 MG ORAL BID, (Reported) Ibuprofen (Motrin), 600 MG ORAL FOUR TIMES A DAY, (Reported) Levothyroxine Sodium* (Synthorid*), 75 MCG ORAL DAILY, (Reported) Memantine Hcl* (Namenda*), 5 MG ORAL DAILY, (Reported) Metoprolol Tartrate (Metoprolol Tartrate), 25 MG ORAL Q12HR Mirtazapine* (Remeron*), 15 MG ORAL BEDTIME, (Reported) Multivitamin (Multi Vitamin Daily), 1 TAB ORAL DAILY, (Reported) Scheduled PRN Acetaminophen* (Acetaminophen 325MG Tablet*), 325 MG ORAL Q4H PRN for MILD PAIN, (Reported) Hydrocodone/Acetaminophen 5-325* (Hydrocodone/Acetaminophen 5-325*), 1 TAB ORAL Q4H PRN Nitroglycerin 0.4MG table* (Nitroglycerin*), 0.4 MG SL Q5M PRN Miscellaneous Medications Apixaban (Eliquis*), 5 MG PO, (Reported) Loperamide Hcl (Imodium A-D), 1 MG PO, (Reported) Mag Hydrox/Aluminum Hyd/Simeth (Mylanta Maximum Strength Liq), 355 ML PO, (Reported) Discontinued Medications Hydralazine Hcl* (Hydralazine Hcl*), 25 MG ORAL Q12HR Discontinued Reason: MD discontinued med Patient History Healthcare decision maker N Resuscitation status Advanced Directive on File Past Medical/Surgical History Past Medical/Surgical History: (1) Hip fracture (2) COVID-19 (3) CHF (congestive heart failure) (4) GERD (gastroesophageal reflux disease) (5) HTN (hypertension) (6) Troponin level elevated (7) Chronic anticoagulation (8) History of CVA (cerebrovascular accident) (9) Chronic atrial fibrillation Review of Systems All Other Systems: negative except mentioned in HPI Physical Exam General Appearance: cachetic, thin Lines, tubes and drains: peripheral HEENT: normocephalic, atraumatic Neck: non-tender, normal alignment Respiratory/Chest: chest wall non-tender, rhonchi - left, rhonchi - right Breasts: no masses Cardiovascular/Chest: normal peripheral pulses Abdomen: normal bowel sounds Genitourinary/Rectal: normal genital exam Extremities: normal range of motion, non-tender Last 24 Hour Vital Signs Date Time Temp Pulse Resp B/P (MAP) Pulse Ox O2 Delivery O2 Flow Rate FiO2 01/29/20 12:00 97.7 76 20 119/60 (79) 99 01/29/20 09:00 Room Air 01/29/20 08:00 97.3 104 22 158/76 (103) 100 01/29/20 07:40 75 24 96 Room Air 21 01/29/20 04:00 98.3 75 24 130/72 (91) 96 01/29/20 00:00 98.8 68 24 112/56 (74) 96 01/28/20 21:00 Room Air 01/28/20 19:28 Room Air 01/28/20 19:00 96.3 67 24 124/62 (82) 95 01/28/20 17:56 98.0 96 27 136/83 97 Room Air 01/28/20 17:20 98.0 97 27 122/83 95 Room Air 01/28/20 17:04 87 18 129/90 97 01/28/20 16:34 97 29 128/87 96 01/28/20 15:05 98 30 Room Air 96 01/28/20 15:05 98 30 114/65 96 Room Air 01/28/20 14:43 16 104/60 (75) 98 Nasal Cannula 2.0 Intake and Output 01/28/20 01/29/20 19:00 07:00 Intake Total 50 ml Balance 50 ml Intake Oral 50 ml # Voids 1 1 Laboratory Tests Test 01/28/20 15:23 01/28/20 16:06 01/29/20 04:30 White Blood Count 7.8 K/UL (4.8-10.8) 5.3 K/UL (4.8-10.8) Red Blood Count 4.52 M/UL (4.20-5.40) 4.52 M/UL (4.20-5.40) Hemoglobin 11.4 G/DL (12.0-16.0) L 11.3 G/DL (12.0-16.0) L Hematocrit 37.6 % (37.0-47.0) 35.6 % (37.0-47.0) L Mean Corpuscular Volume 83 FL (80-99) 79 FL (80-99) L Mean Corpuscular Hemoglobin 25.1 PG (27.0-31.0) L 25.1 PG (27.0-31.0) L Mean Corpuscular Hemoglobin Concent 30.2 G/DL (32.0-36.0) L 31.8 G/DL (32.0-36.0) L Red Cell Distribution Width 17.5 % (11.6-14.8) H 15.9 % (11.6-14.8) H Platelet Count 380 K/UL (150-450) 348 K/UL (150-450) Mean Platelet Volume 4.7 FL (6.5-10.1) L 4.1 FL (6.5-10.1) L Neutrophils (%) (Auto) 69.4 % (45.0-75.0) 63.7 % (45.0-75.0) Lymphocytes (%) (Auto) 25.6 % (20.0-45.0) 32.3 % (20.0-45.0) Monocytes (%) (Auto) 3.3 % (1.0-10.0) 2.8 % (1.0-10.0) Eosinophils (%) (Auto) 0.5 % (0.0-3.0) 0.0 % (0.0-3.0) Basophils (%) (Auto) 1.2 % (0.0-2.0) 1.2 % (0.0-2.0) Prothrombin Time 11.5 SEC (9.30-11.50) Prothromb Time International Ratio 1.0 (0.9-1.1) Activated Partial Thromboplast Time 26 SEC (23-33) D-Dimer 8.58 mg/L FEU (0.00-0.49) H Sodium Level 139 MMOL/L (136-145) 139 MMOL/L (136-145) Potassium Level 4.3 MMOL/L (3.5-5.1) 3.8 MMOL/L (3.5-5.1) Chloride Level 102 MMOL/L (98-107) 105 MMOL/L (98-107) Carbon Dioxide Level 30 MMOL/L (21-32) 24 MMOL/L (21-32) Anion Gap 7 mmol/L (5-15) 10 mmol/L (5-15) Blood Urea Nitrogen 19 mg/dL (7-18) H 21 mg/dL (7-18) H Creatinine 0.6 MG/DL (0.55-1.30) 0.4 MG/DL (0.55-1.30) L Estimat Glomerular Filtration Rate > 60 mL/min (>60) > 60 mL/min (>60) Glucose Level 125 MG/DL (74-106) H 124 MG/DL (74-106) H Lactic Acid Level 1.20 mmol/L (0.4-2.0) Calcium Level 10.1 MG/DL (8.5-10.1) 8.7 MG/DL (8.5-10.1) Ferritin 45 NG/ML (8-388) Total Bilirubin 0.3 MG/DL (0.2-1.0) Aspartate Amino Transf (AST/SGOT) 19 U/L (15-37) Alanine Aminotransferase (ALT/SGPT) 12 U/L (12-78) Alkaline Phosphatase 61 U/L (46-116) Lactate Dehydrogenase 166 U/L (81-234) Total Creatine Kinase 45 U/L (26-308) Creatine Kinase MB 1.0 NG/ML (0.0-3.6) Creatine Kinase MB Relative Index 2.2 Troponin I 0.008 ng/mL (0.000-0.056) C-Reactive Protein, Quantitative 1.8 mg/dL (0.00-0.90) H Pro-B-Type Natriuretic Peptide 3994 pg/mL (0-125) H Total Protein 7.2 G/DL (6.4-8.2) Albumin 3.0 G/DL (3.4-5.0) L 2.5 G/DL (3.4-5.0) L Globulin 4.2 g/dL Albumin/Globulin Ratio 0.7 (1.0-2.7) L Lipase 125 U/L (73-393) Urine Color Pale yellow Urine Appearance Slightly cloudy Urine pH 7 (4.5-8.0) Urine Specific [place] 1.010 (1.005-1.035) Urine Protein 1+ (NEGATIVE) H Urine Glucose (UA) Negative (NEGATIVE) Urine Ketones Negative (NEGATIVE) Urine Blood Negative (NEGATIVE) Urine Nitrite Negative (NEGATIVE) Urine Bilirubin Negative (NEGATIVE) Urine Urobilinogen Normal MG/DL (0.0-1.0) Urine Leukocyte Esterase 2+ (NEGATIVE) H Urine RBC 0-2 /HPF (0 - 2) Urine WBC 10-15 /HPF (0 - 2) H Urine Squamous Epithelial Cells Few /LPF (NONE/OCC) Urine Bacteria Moderate /HPF (NONE) H Phosphorus Level 3.1 MG/DL (2.5-4.9) Microbiology Date/Time Source Procedure Growth Status 01/28/20 16:06 Urine,Clean Catch Urine Culture - Preliminary Resulted 01/28/20 15:25 Nasopharynx SARS-CoV-2 RdRp Gene Assay - Final Complete Height (Feet): 5 Height (Inches): 1.00 Weight (Pounds): 105 Medications Current Medications Medications (Trade) Dose Ordered Sig/Lucina Route PRN Reason Start Time Stop Time Status Last Admin Dose Admin Acetaminophen (Tylenol) 650 mg Q4H PRN ORAL FEVER 01/28/20 22:30 02/27/20 22:29 Albuterol/ Ipratropium (Albuterol/ Ipratropium) 3 ml Q4H PRN HHN Shortness of Breath 01/28/20 22:30 02/02/20 22:29 Azithromycin 250 mg/Dextrose 275 ml @ 275 mls/hr Q24H IV 01/28/20 08:00 02/02/20 07:59 01/29/20 08:58 Ceftriaxone Sodium 1 gm/ Dextrose 55 ml @ 110 mls/hr Q24H IVPB 01/28/20 23:00 02/04/20 22:59 01/28/20 23:15 Dexamethasone (Decadron) 4 mg DAILY ORAL 01/29/20 09:00 02/07/20 08:59 01/29/20 08:54 Dextrose (Dextrose 50%) 25 ml Q30M PRN IV Hypoglycemia 01/28/20 22:30 04/27/20 22:29 Dextrose (Dextrose 50%) 50 ml Q30M PRN IV Hypoglycemia 01/28/20 22:30 04/27/20 22:29 Heparin Sodium (Porcine) (Heparin 5000 units/ml) 5,000 units EVERY 12 HOURS SUBQ 01/29/20 09:00 03/14/20 08:59 01/29/20 08:57 Ondansetron HCl (Zofran) 4 mg Q6H PRN IVP Nausea & Vomiting 01/28/20 22:30 02/27/20 22:29 Polyethylene Glycol (Miralax) 17 gm DAILYPRN PRN ORAL Constipation 01/28/20 22:30 02/27/20 22:29 Promethazine HCl/ Codeine (Phenergan with Codeine) 5 ml Q6H PRN ORAL cough 01/28/20 22:30 02/27/20 22:29 Assessment/Plan Problem List: (1) COVID-19 ICD Codes: U07.1 - COVID-19 SNOMED: 728704306 (2) Nosocomial pneumonia ICD Codes: J18.9 - Pneumonia, unspecified organism; Y95 - Nosocomial condition SNOMED: 315659851 (3) Chronic atrial fibrillation ICD Codes: I48.20 - Chronic atrial fibrillation, unspecified SNOMED: 514264821 (4) Episode of generalized weakness ICD Codes: R53.1 - Weakness SNOMED: 99548622 (5) HTN (hypertension) ICD Codes: I10 - Essential (primary) hypertension SNOMED: 67600654 (6) Hypothyroid ICD Codes: E03.9 - Hypothyroidism, unspecified SNOMED: 60181770 (7) History of CVA (cerebrovascular accident) ICD Codes: Z86.73 - Personal history of transient ischemic attack (TIA), and cerebral infarction without residual deficits SNOMED: 743654988 Assessment/Plan: Repeat COVID again ID to see continue empiric abx monitor BP symptomatic treatment dvt prophylaxis aspiration precaution Obey Daniel MD Jan 29, 2020 13:12
--- NOTE | 2020-01-29 13:14 | NUR ---
NURSE NOTES: There is an order to collect Sputum Culture for this patient; Arthur RT is aware; waiting for RT.
--- NOTE | 2020-01-29 13:31 | NUR ---
CASE MANAGEMENT:INITIAL REVIEW 89 YR OLD FEMALE JOCE FROM [facility] ([facility] Addendum: 01/29/20 at 1332 by JASPER MCCARTY LVN LVN ERROR~DISREGARD
--- NOTE | 2020-01-29 13:32 | NUR ---
CASE MANAGEMENT:INITIAL REVIEW 89 YR OLD FEMALE BIBA FROM [facility] ([facility]) CC; GENERALIZED WEAKNESS SI;WEAKNESS, COVID POSITIVE. 98.0 98 30 104/60 95% ON RA CRP 1.8 BNP 3994 ALB 3.0 D-DIMER 8.58 UA+ PROTEIN, LEUKOCYTE ESTERASE, SQUAMOUS EPITH CELLS, BACTERIA COVID RAPID ~ NEGATIVE COVID PCR ~ RESULT PENDING URINE CX ~ RESULT PENDING CXR ~ Left basilar atelectasis. No acute process IS;DECADRON IV LOVENOX SUBQ LEVAQUIN IV ATIVAN IV IVF NS BOLUS ADMITTED TO MED SURG 01/28/20 @ 1956 MED SURG STATUS DCP;FROM [facility]
--- NOTE | 2020-01-29 14:35 | Consultation ---
History of Present Illness General Date patient seen: Jan 29, 2020 Chief Complaint: Generalized Weakness Present Illness HPI 89 y/o F with hx of COVID19 positive (dx'ed at SNF), HTN, Afib, HLD, CVA/TIA, SNF resident presented to ED on 01/28/20 with generalized weakness. Allergies: Coded Allergies: No Known Allergies (Unverified , 04/17/19) Medication History Scheduled Aspirin* (Aspirin*), 81 MG ORAL DAILY, (Reported) Ceftriaxone Sodium (Ceftriaxone), 1 GM IJ DAILY Docusate Sodium* (Docusate Sodium*), 100 MG ORAL THREE TIMES A DAY, (Reported) Hydralazine Hcl* (Hydralazine Hcl*), 50 MG ORAL BID, (Reported) Ibuprofen (Motrin), 600 MG ORAL FOUR TIMES A DAY, (Reported) Levothyroxine Sodium* (Synthorid*), 75 MCG ORAL DAILY, (Reported) Memantine Hcl* (Namenda*), 5 MG ORAL DAILY, (Reported) Metoprolol Tartrate (Metoprolol Tartrate), 25 MG ORAL Q12HR Mirtazapine* (Remeron*), 15 MG ORAL BEDTIME, (Reported) Multivitamin (Multi Vitamin Daily), 1 TAB ORAL DAILY, (Reported) Scheduled PRN Acetaminophen* (Acetaminophen 325MG Tablet*), 325 MG ORAL Q4H PRN for MILD PAIN, (Reported) Hydrocodone/Acetaminophen 5-325* (Hydrocodone/Acetaminophen 5-325*), 1 TAB ORAL Q4H PRN Nitroglycerin 0.4MG table* (Nitroglycerin*), 0.4 MG SL Q5M PRN Miscellaneous Medications Apixaban (Eliquis*), 5 MG PO, (Reported) Loperamide Hcl (Imodium A-D), 1 MG PO, (Reported) Mag Hydrox/Aluminum Hyd/Simeth (Mylanta Maximum Strength Liq), 355 ML PO, (Reported) Discontinued Medications Hydralazine Hcl* (Hydralazine Hcl*), 25 MG ORAL Q12HR Discontinued Reason: discontinued med Patient History Healthcare decision maker N Resuscitation status Advanced Directive on File Patient History Narrative Pmhx: as above Shx: Denies: smoking, alcohol use, drug use Fhx: non contributory Review of Systems ROS Narrative unable to obtain Physical Exam Physical Exam Narrative General Appearance: no apparent distress, alert Head: normocephalic, atraumatic Eyes: bilateral eye normal inspection, bilateral eye PERRL ENT: hearing grossly normal, normal pharynx, no angioedema, normal voice Neck: full range of motion, supple/symm/no masses Respiratory: chest non-tender, lungs clear, normal breath sounds, speaking full sentences Cardiovascular #1: regular rate, rhythm, no edema Gastrointestinal: normal bowel sounds, non tender, soft, non-distended, no guarding, no rebound Genitourinary: normal inspection, no CVA tenderness Musculoskeletal: back normal, normal range of motion, gait/station normal, non- tender Last 24 Hour Vital Signs Date Time Temp Pulse Resp B/P (MAP) Pulse Ox O2 Delivery O2 Flow Rate FiO2 01/29/20 12:00 97.7 76 20 119/60 (79) 99 01/29/20 09:00 Room Air 01/29/20 08:00 97.3 104 22 158/76 (103) 100 01/29/20 07:40 75 24 96 Room Air 21 01/29/20 04:00 98.3 75 24 130/72 (91) 96 01/29/20 00:00 98.8 68 24 112/56 (74) 96 01/28/20 21:00 Room Air 01/28/20 19:28 Room Air 01/28/20 19:00 96.3 67 24 124/62 (82) 95 01/28/20 17:56 98.0 96 27 136/83 97 Room Air 01/28/20 17:20 98.0 97 27 122/83 95 Room Air 01/28/20 17:04 87 18 129/90 97 01/28/20 16:34 97 29 128/87 96 01/28/20 15:05 98 30 Room Air 96 01/28/20 15:05 98 30 114/65 96 Room Air 01/28/20 14:43 16 104/60 (75) 98 Nasal Cannula 2.0 Intake and Output 01/28/20 01/29/20 19:00 07:00 Intake Total 50 ml Balance 50 ml Intake Oral 50 ml # Voids 1 1 Laboratory Tests Test 01/28/20 15:23 01/28/20 16:06 01/29/20 04:30 White Blood Count 7.8 K/UL (4.8-10.8) 5.3 K/UL (4.8-10.8) Red Blood Count 4.52 M/UL (4.20-5.40) 4.52 M/UL (4.20-5.40) Hemoglobin 11.4 G/DL (12.0-16.0) L 11.3 G/DL (12.0-16.0) L Hematocrit 37.6 % (37.0-47.0) 35.6 % (37.0-47.0) L Mean Corpuscular Volume 83 FL (80-99) 79 FL (80-99) L Mean Corpuscular Hemoglobin 25.1 PG (27.0-31.0) L 25.1 PG (27.0-31.0) L Mean Corpuscular Hemoglobin Concent 30.2 G/DL (32.0-36.0) L 31.8 G/DL (32.0-36.0) L Red Cell Distribution Width 17.5 % (11.6-14.8) H 15.9 % (11.6-14.8) H Platelet Count 380 K/UL (150-450) 348 K/UL (150-450) Mean Platelet Volume 4.7 FL (6.5-10.1) L 4.1 FL (6.5-10.1) L Neutrophils (%) (Auto) 69.4 % (45.0-75.0) 63.7 % (45.0-75.0) Lymphocytes (%) (Auto) 25.6 % (20.0-45.0) 32.3 % (20.0-45.0) Monocytes (%) (Auto) 3.3 % (1.0-10.0) 2.8 % (1.0-10.0) Eosinophils (%) (Auto) 0.5 % (0.0-3.0) 0.0 % (0.0-3.0) Basophils (%) (Auto) 1.2 % (0.0-2.0) 1.2 % (0.0-2.0) Prothrombin Time 11.5 SEC (9.30-11.50) Prothromb Time International Ratio 1.0 (0.9-1.1) Activated Partial Thromboplast Time 26 SEC (23-33) D-Dimer 8.58 mg/L FEU (0.00-0.49) H Sodium Level 139 MMOL/L (136-145) 139 MMOL/L (136-145) Potassium Level 4.3 MMOL/L (3.5-5.1) 3.8 MMOL/L (3.5-5.1) Chloride Level 102 MMOL/L (98-107) 105 MMOL/L (98-107) Carbon Dioxide Level 30 MMOL/L (21-32) 24 MMOL/L (21-32) Anion Gap 7 mmol/L (5-15) 10 mmol/L (5-15) Blood Urea Nitrogen 19 mg/dL (7-18) H 21 mg/dL (7-18) H Creatinine 0.6 MG/DL (0.55-1.30) 0.4 MG/DL (0.55-1.30) L Estimat Glomerular Filtration Rate > 60 mL/min (>60) > 60 mL/min (>60) Glucose Level 125 MG/DL (74-106) H 124 MG/DL (74-106) H Lactic Acid Level 1.20 mmol/L (0.4-2.0) Calcium Level 10.1 MG/DL (8.5-10.1) 8.7 MG/DL (8.5-10.1) Ferritin 45 NG/ML (8-388) Total Bilirubin 0.3 MG/DL (0.2-1.0) Aspartate Amino Transf (AST/SGOT) 19 U/L (15-37) Alanine Aminotransferase (ALT/SGPT) 12 U/L (12-78) Alkaline Phosphatase 61 U/L (46-116) Lactate Dehydrogenase 166 U/L (81-234) Total Creatine Kinase 45 U/L (26-308) Creatine Kinase MB 1.0 NG/ML (0.0-3.6) Creatine Kinase MB Relative Index 2.2 Troponin I 0.008 ng/mL (0.000-0.056) C-Reactive Protein, Quantitative 1.8 mg/dL (0.00-0.90) H Pro-B-Type Natriuretic Peptide 3994 pg/mL (0-125) H Total Protein 7.2 G/DL (6.4-8.2) Albumin 3.0 G/DL (3.4-5.0) L 2.5 G/DL (3.4-5.0) L Globulin 4.2 g/dL Albumin/Globulin Ratio 0.7 (1.0-2.7) L Lipase 125 U/L (73-393) Urine Color Pale yellow Urine Appearance Slightly cloudy Urine pH 7 (4.5-8.0) Urine Specific [place] 1.010 (1.005-1.035) Urine Protein 1+ (NEGATIVE) H Urine Glucose (UA) Negative (NEGATIVE) Urine Ketones Negative (NEGATIVE) Urine Blood Negative (NEGATIVE) Urine Nitrite Negative (NEGATIVE) Urine Bilirubin Negative (NEGATIVE) Urine Urobilinogen Normal MG/DL (0.0-1.0) Urine Leukocyte Esterase 2+ (NEGATIVE) H Urine RBC 0-2 /HPF (0 - 2) Urine WBC 10-15 /HPF (0 - 2) H Urine Squamous Epithelial Cells Few /LPF (NONE/OCC) Urine Bacteria Moderate /HPF (NONE) H Phosphorus Level 3.1 MG/DL (2.5-4.9) Microbiology Date/Time Source Procedure Growth Status 01/28/20 16:06 Urine,Clean Catch Urine Culture - Preliminary Resulted 01/28/20 15:25 Nasopharynx SARS-CoV-2 RdRp Gene Assay - Final Complete 01/28/20 15:25 Nasopharynx Coronavirus COVID-19 PCR ([facility]) - Final Complete Height (Feet): 5 Height (Inches): 1.00 Weight (Pounds): 105 Medications Current Medications Medications (Trade) Dose Ordered Sig/Lucina Route PRN Reason Start Time Stop Time Status Last Admin Dose Admin Acetaminophen (Tylenol) 650 mg Q4H PRN ORAL FEVER 01/28/20 22:30 02/27/20 22:29 Albuterol/ Ipratropium (Albuterol/ Ipratropium) 3 ml Q4H PRN HHN Shortness of Breath 01/28/20 22:30 02/02/20 22:29 Azithromycin 250 mg/Dextrose 275 ml @ 275 mls/hr Q24H IV 01/28/20 08:00 02/02/20 07:59 01/29/20 08:58 Ceftriaxone Sodium 1 gm/ Dextrose 55 ml @ 110 mls/hr Q24H IVPB 01/28/20 23:00 02/04/20 22:59 01/28/20 23:15 Dexamethasone (Decadron) 4 mg DAILY ORAL 01/29/20 09:00 02/07/20 08:59 01/29/20 08:54 Dextrose (Dextrose 50%) 25 ml Q30M PRN IV Hypoglycemia 01/28/20 22:30 04/27/20 22:29 Dextrose (Dextrose 50%) 50 ml Q30M PRN IV Hypoglycemia 01/28/20 22:30 04/27/20 22:29 Heparin Sodium (Porcine) (Heparin 5000 units/ml) 5,000 units EVERY 12 HOURS SUBQ 01/29/20 09:00 03/14/20 08:59 01/29/20 08:57 Ondansetron HCl (Zofran) 4 mg Q6H PRN IVP Nausea & Vomiting 01/28/20 22:30 02/27/20 22:29 Polyethylene Glycol (Miralax) 17 gm DAILYPRN PRN ORAL Constipation 01/28/20 22:30 02/27/20 22:29 Promethazine HCl/ Codeine (Phenergan with Codeine) 5 ml Q6H PRN ORAL cough 01/28/20 22:30 02/27/20 22:29 Assessment/Plan Assessment/Plan: Abx: Ceftriaxone 01/27- Azithromycin 01/27- Levaquin x1 01/27 Assessment: 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 No acute process Afebrile No leukocytosis Ro probable UTI -01/27 u/a wbc 10-25, nit neg, leuk +2; ucx p HTN Afib HLD CVA/TIA SNF resident ([facility]) Plan: -Continue empiric Ceftriaxone #2 pending ucx -Dc Decadron and Azithromycin #2 as no PNA on CXR and at RA -f/u cx -Monitor CBC/CMP, temperatures -CXR am -Continue COVID19 isolation Thank you for this consultation. Will continue to follow along with you. Discussed with Vida Beaver M.D. Jan 29, 2020 14:35
--- NOTE | 2020-01-29 15:00 | History and Physical Report ---
DATE OF ADMISSION: 01/28/2020 TIME SEEN: 1 p.m. CONSULTANTS: 1. Julián Ferrari MD 2. . 3. Obey Daniel MD. CHIEF COMPLAINT: Shortness of breath, weak, COVID infection. BRIEF HISTORY: This is an 89-year-old female from [facility] presents with increased weakness for two days, slight short of breath, was tested positive for COVID, transferred to [facility], diagnosed with the above, admitted to medical floor for further treatment. Currently, sleeping in bed, not talking much, slight short of breath. REVIEW OF SYSTEMS: Unavailable. PAST MEDICAL HISTORY: Includes CVA, weakness, GERD, hypertension, hypothyroid, chronic atrial fibrillation, osteoporosis. PAST SURGICAL HISTORY: Unknown. MEDICATIONS: Heparin, dexamethasone, ceftriaxone, azithromycin, Zofran, albuterol. ALLERGIES: Denies. SOCIAL HISTORY: No smoking. No alcohol. No intravenous drug abuse. FAMILY HISTORY: Noncontributory. PHYSICAL EXAMINATION: GENERAL: Sleeping in bed, not talking much. VITAL SIGNS: Temperature 97, pulse 76, respiratory rate 20, blood pressure 119/60. GENERAL: Calm in room. HEENT: Normocephalic and atraumatic. NECK: Trachea in midline. CARDIOVASCULAR: No peripheral edema. LUNGS: Slight short of breath on room air. ABDOMEN: No apparent wounds. EXTREMITIES: No cyanosis or clubbing. LABORATORY AND DIAGNOSTIC DATA: Labs at this time show hemoglobin and hematocrit 11/35, otherwise CBC is normal. BUN and creatinine 21 and 0.4, glucose 124. Albumin 2.5. INR is 1.0. Urinalysis show 2+ leukocyte esterase. ASSESSMENT: 1. UTI. 2. COVID infection. 3. Shortness of breath. 4. Weakness. 5. Malnutrition. 6. CHF. 7. Hypertension. 8. CVA. 9. Osteoporosis. 10. Hypothyroid. PLAN: 1. Resume home medications. 2. O2 and pulmonary treatment. 3. Antibiotics per Infectious Diseases. 4. Blood pressure and pain control. 5. Dietary followup. 6. CBC and BMP in the morning. Jesus Palomo D.O. DR: Erich JOB#: [id number] CC:
[2020-01-29 16:00] VITALS: BP 134/80
--- NOTE | 2020-01-29 16:09 | NUR ---
NURSE NOTES: Sputum for culture collected, send it to lab; waiting for results;
--- NOTE | 2020-01-29 16:22 | NUR ---
NURSE NOTES: Patient had two Covid-19 negative results; MD Llamas still want us to keep COVID-19 isolation; order carried out as given;
--- NOTE | 2020-01-29 16:23 | Cardiology Report ---
APPROVED REPORT EKG Measurement Heart [id number] SD P91 [id number] <Conclusion> atrial tachy with block Right bundle branch block Abnormal ECG
--- NOTE | 2020-01-29 19:29 | NUR ---
NURSE NOTES: Received report from mikey talbert. patient is on bed, asleep. on room air. no sob. with picc line on the right upper arm, double lumen. per nitish" she's not eating well and drink water; she pulled out her peripheral iv on the left forearm." sputum collected by the RT, pending results. 2 negative results (pcr+ rapid). per dr. menezes "to keep the isolation for the mean time cause she was + of covid in the snf 01/24". wound nurse evaluated the pt during the day shift. bed locked and in lowest position. call light and light button within easy reach. bed alarm on. will continue plan of care.
--- NOTE | 2020-01-29 19:30 | NUR ---
HAND-OFF: Report given to BHAVIN Berumen. Patient stable; PICC line in place;
[2020-01-29 20:00] VITALS: BP 128/58
[2020-01-29] MEDS: cefTRIAXone 1 GM in D5W 55 ML IVPB SCH (22:05)
[2020-01-29] MEDS ORDERED: Dyna-Hex 2% Top Sol 2oz TOPIC SCH (23:00)
[2020-01-30] VITALS: BP 132/58
--- NOTE | 2020-01-30 00:39 | NUR ---
NURSE NOTES: received an order from dr. pinedo to give hydralazine 50 mg bid for htn. order noted and carried out.
[2020-01-30 04:00] VITALS: BP 137/57
--- NOTE | 2020-01-30 06:18 | NUR ---
NURSE HAND-OFF: Important Events on Shift: BM TODAY; WOUND DRESSING CHANGED Patient Status: STABLE Diet: REGULAR PUREED MOIST Pending Orders: Pending Results/Labs:PENDING SPUTUM CULTURE RESULT Pending MD notification: Latest Vital Signs: Temperature 98.6 , Pulse 73 , B/P 137 /57 , Respiratory Rate 24 , O2 SAT 97 , Room Air, O2 Flow Rate 2.0 . Vital Sign Comment: Latest Martinez Fall Score: 50 Fall Risk: High Risk Safety Measures: Call light Within Reach, Bed Alarm Zone 1, Side Rails Side Rails x2, Bed position Low and Locked. Fall Precautions: Yellow Socks Yellow Gown Door Sign Patient Fall Education
[2020-01-30 06:35] LABS: BASOPHILS % (AUTO) 1.7 % (0.0-2.0); EOSINOPHILS % (AUTO) 0.1 % (0.0-3.0); HEMATOCRIT 33.2 % (37.0-47.0); HEMOGLOBIN 10.4 G/DL (12.0-16.0); LYMPHOCYTES % (AUTO) 19.8 % (20.0-45.0); MEAN CORPUSCULAR VOLUME 79 FL (80-99); MONOCYTES % (AUTO) 7.1 % (1.0-10.0); NEUTROPHILS % (AUTO) 71.4 % (45.0-75.0); PLATELET COUNT 350 K/UL (150-450); RED CELL DISTRIBUTION WIDTH 16.4 % (11.6-14.8); WHITE BLOOD COUNT 6.4 K/UL (4.8-10.8)
[2020-01-30 07:24] LABS: ANION GAP 9 mmol/L (5-15); BLOOD UREA NITROGEN 22 mg/dL (7-18); CALCIUM 9.2 MG/DL (8.5-10.1); CARBON DIOXIDE 27 MMOL/L (21-32); CHLORIDE 101 MMOL/L (98-107); CREATININE 0.6 MG/DL (0.55-1.30); POTASSIUM 3.6 MMOL/L (3.5-5.1); SODIUM 137 MMOL/L (136-145)
--- NOTE | 2020-01-30 07:25 | NUR ---
NURSE NOTES: Patient awake, alert x1, Romanian speaking; on room air, no sing of distress and shortness of breath; no sing of chest pain; PICC line on Right Upper arm, TKO; side rails up x2, breaks engaged, bed at lowest position, bed alarm on, call light within reach; will keep monitoring.
--- NOTE | 2020-01-30 07:25 | NUR ---
HAND-OFF: Report given to mikey talbert.
[2020-01-30 08:00] VITALS: BP 125/51
[2020-01-30] MEDS: HydrALAZINE 50mg tab ORAL SCH ×2 (08:50→17:12)
[2020-01-30] MEDS: Heparin 5000 units/ml inj SUBQ SCH ×2 (08:53→20:36)
--- NOTE | 2020-01-30 09:08 | General Progress Note ---
Subjective Constitutional: Reports: weakness Allergies: Coded Allergies: No Known Allergies (Unverified , 04/17/19) All Systems: reviewed and negative except above Subjective calm in bed Objective Last 24 Hour Vital Signs Date Time Temp Pulse Resp B/P (MAP) Pulse Ox O2 Delivery O2 Flow Rate FiO2 01/30/20 08:50 125/51 01/30/20 08:00 97.9 72 17 125/51 (75) 98 01/30/20 04:00 98.6 73 24 137/57 (83) 97 01/30/20 00:00 98.3 87 20 132/58 (82) 96 01/29/20 21:00 Room Air 01/29/20 20:00 98.0 80 20 128/58 (81) 99 01/29/20 16:00 98.0 98 20 134/80 (98) 98 01/29/20 12:00 97.7 76 20 119/60 (79) 99 Intake and Output 01/29/20 01/30/20 19:00 07:00 Intake Total 275 ml Balance 275 ml IV Total 275 ml # Voids 2 # Bowel Movements 1 Laboratory Tests 01/30/20 04:00: White Blood Count 6.4, Red Blood Count 4.20, Hemoglobin 10.4L, Hematocrit 33.2L, Mean Corpuscular Volume 79L, Mean Corpuscular Hemoglobin 24.7L, Mean Corpuscular Hemoglobin Concent 31.2L, Red Cell Distribution Width 16.4H, Platelet Count 350, Mean Platelet Volume 3.8L, Neutrophils (%) (Auto) 71.4, Lymphocytes (%) (Auto) 19.8L, Monocytes (%) (Auto) 7.1, Eosinophils (%) (Auto) 0.1, Basophils (%) (Auto) 1.7, Sodium Level 137, Potassium Level 3.6, Chloride Level 101, Carbon Dioxide Level 27, Anion Gap 9, Blood Urea Nitrogen 22H, Creatinine 0.6, Estimat Glomerular Filtration Rate > 60, Glucose Level 134H, Calcium Level 9.2 Height (Feet): 5 Height (Inches): 1.00 Weight (Pounds): 105 General Appearance: lethargic EENT: normal ENT inspection Neck: normal alignment Cardiovascular: normal peripheral pulses, normal rate, regular rhythm Respiratory/Chest: chest wall non-tender, lungs clear, normal breath sounds Abdomen: normal bowel sounds, non tender, soft Extremities: normal inspection Edema: no edema noted Arm (L), no edema noted Arm (R), no edema noted Leg (L), no edema noted Leg (R), no edema noted Pedal (L), no edema noted Pedal (R), no edema noted Generalized Neurologic: motor weakness Skin: normal pigmentation, warm/dry Assessment/Plan Problem List: (1) CHF (congestive heart failure) ICD Codes: I50.9 - Heart failure, unspecified SNOMED: 00590377 (2) Malnutrition ICD Codes: E46 - Unspecified protein-calorie malnutrition SNOMED: 44917349 (3) UTI (urinary tract infection) ICD Codes: N39.0 - Urinary tract infection, site not specified SNOMED: 52185164 Qualifiers: Qualified Codes: N39.0 - Urinary tract infection, site not specified (4) COVID-19 ICD Codes: U07.1 - COVID-19 SNOMED: 222407550 (5) Episode of generalized weakness ICD Codes: R53.1 - Weakness SNOMED: 22432030 (6) HTN (hypertension) ICD Codes: I10 - Essential (primary) hypertension SNOMED: 02139116 (7) Hypothyroid ICD Codes: E03.9 - Hypothyroidism, unspecified SNOMED: 45169159 (8) History of CVA (cerebrovascular accident) ICD Codes: Z86.73 - Personal history of transient ischemic attack (TIA), and cerebral infarction without residual deficits SNOMED: 096322470 Status: unchanged Assessment/Plan: o2 pulm tx abx pt diet cbc bp am aru Jesus Durand DO Jan 30, 2020 09:08
--- NOTE | 2020-01-30 09:44 | NUR ---
*-*DISCHARGE PLANNING*-* PATIENT HAS BEEN REFERRED TO: [facility] P: [phone]
--- NOTE | 2020-01-30 11:14 | Pulmonology Progress Note ---
Subjective ROS Limited/Unobtainable: No Allergies: Coded Allergies: No Known Allergies (Unverified , 04/17/19) All Systems: reviewed and negative except above Objective Last 24 Hour Vital Signs Date Time Temp Pulse Resp B/P (MAP) Pulse Ox O2 Delivery O2 Flow Rate FiO2 01/30/20 09:00 Room Air 01/30/20 08:50 125/51 01/30/20 08:00 97.9 72 17 125/51 (75) 98 01/30/20 04:00 98.6 73 24 137/57 (83) 97 01/30/20 00:00 98.3 87 20 132/58 (82) 96 01/29/20 21:00 Room Air 01/29/20 20:00 98.0 80 20 128/58 (81) 99 01/29/20 16:00 98.0 98 20 134/80 (98) 98 01/29/20 12:00 97.7 76 20 119/60 (79) 99 Intake and Output 01/29/20 01/30/20 19:00 07:00 Intake Total 275 ml Balance 275 ml IV Total 275 ml # Voids 2 # Bowel Movements 1 General Appearance: cachetic HEENT: normocephalic, atraumatic Respiratory: chest wall non-tender, lungs clear Breasts: no masses Cardiovascular: normal peripheral pulses Abdomen: normal bowel sounds, soft, non tender Genitourinary: normal external genitalia Skin: no rash 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 Complete 01/28/20 16:06 Urine,Clean Catch Urine Culture - Preliminary Strep Species, Gamma-Hemolytic Resulted 01/28/20 15:25 Nasopharynx SARS-CoV-2 RdRp Gene Assay - Final Complete 01/28/20 15:25 Nasopharynx Coronavirus COVID-19 PCR (AURELIO) - Final Complete 01/28/20 00:00 Rectum VRE Culture - Final Enterococcus Faecium - Vre Complete 01/28/20 00:00 Nasal Nares MRSA Culture - Final NO METHICILLIN RESISTANT STAPH AUREUS... Complete Laboratory Tests 01/30/20 04:00: White Blood Count 6.4, Red Blood Count 4.20, Hemoglobin 10.4L, Hematocrit 33.2L, Mean Corpuscular Volume 79L, Mean Corpuscular Hemoglobin 24.7L, Mean Corpuscular Hemoglobin Concent 31.2L, Red Cell Distribution Width 16.4H, Platelet Count 350, Mean Platelet Volume 3.8L, Neutrophils (%) (Auto) 71.4, Lymphocytes (%) (Auto) 19.8L, Monocytes (%) (Auto) 7.1, Eosinophils (%) (Auto) 0.1, Basophils (%) (Auto) 1.7, Sodium Level 137, Potassium Level 3.6, Chloride Level 101, Carbon Dioxide Level 27, Anion Gap 9, Blood Urea Nitrogen 22H, Creatinine 0.6, Estimat Glomerular Filtration Rate > 60, Glucose Level 134H, Calcium Level 9.2 Current Medications Medications (Trade) Dose Ordered Sig/Lucina Route PRN Reason Start Time Stop Time Status Last Admin Dose Admin Acetaminophen (Tylenol) 650 mg Q4H PRN ORAL FEVER 01/28/20 22:30 02/27/20 22:29 Albuterol/ Ipratropium (Albuterol/ Ipratropium) 3 ml Q4H PRN HHN Shortness of Breath 01/28/20 22:30 02/02/20 22:29 Ceftriaxone Sodium 1 gm/ Dextrose 55 ml @ 110 mls/hr Q24H IVPB 01/28/20 23:00 02/04/20 22:59 01/29/20 22:05 Chlorhexidine Gluconate (Alejandra-Hex 2%) 1 applic DAILY@2000 TOPIC 01/30/20 20:00 04/29/20 19:59 Dextrose (Dextrose 50%) 25 ml Q30M PRN IV Hypoglycemia 01/28/20 22:30 04/27/20 22:29 Dextrose (Dextrose 50%) 50 ml Q30M PRN IV Hypoglycemia 01/28/20 22:30 04/27/20 22:29 Heparin Sodium (Porcine) (Heparin 5000 units/ml) 5,000 units EVERY 12 HOURS SUBQ 01/29/20 09:00 03/14/20 08:59 01/30/20 08:53 Hydralazine HCl (Apresoline) 50 mg BID ORAL 01/30/20 09:00 04/29/20 08:59 01/30/20 08:50 Ondansetron HCl (Zofran) 4 mg Q6H PRN IVP Nausea & Vomiting 01/28/20 22:30 02/27/20 22:29 Polyethylene Glycol (Miralax) 17 gm DAILYPRN PRN ORAL Constipation 01/28/20 22:30 02/27/20 22:29 Promethazine HCl/ Codeine (Phenergan with Codeine) 5 ml Q6H PRN ORAL cough 01/28/20 22:30 02/27/20 22:29 Assessment/Plan Problems: (1) Nosocomial pneumonia (2) Chronic atrial fibrillation (3) Episode of generalized weakness (4) HTN (hypertension) (5) Hypothyroid (6) History of CVA (cerebrovascular accident) Assessment/Plan Repeat COVID was negative ID consult appreciated continue empiric abx f/u cultures monitor BP symptomatic treatment dvt prophylaxis aspiration precaution Obey Daniel MD Jan 30, 2020 11:14
--- NOTE | 2020-01-30 11:49 | NUR ---
P.T NOTE: P.T EVALUATION COMPLETED AND TREATMENT INITIATED. PLEASE REFER TO P.T EVALUATION FOR CURRENT FUNCTIONAL STATUS. PATIENT IS ALERT, ORIENTED TO SELF/PERSON BUT NOT TIME, PLACE AND CURRENT SITUATION. PATIENT FOLLOWS SIMPLE COMMANDS AND WAS VERBALIZE PAIN IN THE LOWER BACK RATES 51/0 PER CHAPPELL-ASHRAF SCALE. PATIENT IS GENERALLY WEAK AND DECONDITIONED. PATIENT WAS ABLE TO INITIATE AND ASSIST IN BED MOBILITY HOWEVER UNABLE TO CARRY OVER AND COMPLETE MOBILITY TASKS REQUIRING MAXIMUM ASSIST TRANSITION FROM SUPINE TO SITTING. PATIENT WAS ONLY ABLE TO SIT WITH MIN SUPPORT AT THE EOB NOT MORE THAN 5 MINS DUE TO FATIGUE. PATIENT TOO WEAK TO STAND AT THIS TIME. NO VISIBLE SOB NOTED/ VITALS WERE STABLE ALL THROUGHOUT P.T EVAL/TX SESSION. RECOMMEND RETURN TO SNF TO CONTINUE WITH REHAB INTERVENTION AT [facility]. THANK YOU FOR THIS REFERRAL.
[2020-01-30 12:00] VITALS: BP 126/56
--- NOTE | 2020-01-30 12:21 | CDS Physician Query ---
Clarification is required for compliance, coding accuracy, and to reflect severity of illness for this patient. Dear Dr. Jesus Palomo Date: 01/30/2020 CDS name: Alanna Balderas Clinical Documentation states: HNP - 89-year-old female from [facility] presents with increased weakness for two days...Malnutrition. RD note: * Increased kcal/prot intake needs R/T wound healing as evidenced by pt admitted w/ wounds @ sacrum, BL heels, BL metatarsal, Rt inner foot, Lt ankle, pending evaluation. BMI 18.8, Albumin 2.5 In order to accurately code this and to reflect the appropriate severity of ilness, please clarify diagnosis. [] Mild Malnutrition [] Moderate Malnutrition [] Severe Malnutrition [] Unknown degree [] Other: [] Clinically Undetermined Present on Admission: [] Yes [] No [] Clinically Undetermined Physician signature Date Please also document in your Progress Notes and/or Discharge Summary and indicate if the condition was present on admission. EVELYND
--- NOTE | 2020-01-30 12:53 | Infectious Diseases Prog Note ---
Assessment/Plan Assessment: COVID19 + (dx'ed [employer] 01/24)- sp 2l NC, now at RA -testing here are neg x2 (01/27 rapid COVID PCR and regular PCR neg)- ?false positive -01/27 CXR: Left basilar atelectasis. 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 Will continue to follow along with you. Discussed with RN. Subjective Allergies: Coded Allergies: No Known Allergies (Unverified , 04/17/19) Objective Last 24 Hour Vital Signs Date Time Temp Pulse Resp B/P (MAP) Pulse Ox O2 Delivery O2 Flow Rate FiO2 01/30/20 12:00 98.0 79 19 126/56 (79) 96 01/30/20 09:00 Room Air 01/30/20 08:50 125/51 01/30/20 08:00 97.9 72 17 125/51 (75) 98 01/30/20 04:00 98.6 73 24 137/57 (83) 97 01/30/20 00:00 98.3 87 20 132/58 (82) 96 01/29/20 21:00 Room Air 01/29/20 20:00 98.0 80 20 128/58 (81) 99 01/29/20 16:00 98.0 98 20 134/80 (98) 98 Height (Feet): 5 Height (Inches): 1.00 Weight (Pounds): 105 General Appearance: no apparent distress, alert Head: normocephalic, atraumatic Eyes: bilateral eye normal inspection, bilateral eye PERRL ENT: hearing grossly normal, normal pharynx, no angioedema, normal voice Neck: full range of motion, supple/symm/no masses Respiratory: chest non-tender, lungs clear, normal breath sounds, speaking full sentences Cardiovascular #1: regular rate, rhythm, no edema Gastrointestinal: normal bowel sounds, non tender, soft, non-distended, no guarding, no rebound Genitourinary: normal inspection, no CVA tenderness Musculoskeletal: back normal, normal range of motion, gait/station normal, non- tender Microbiology Date/Time Source Procedure Growth Status 01/29/20 16:02 Sputum Gram Stain - Final Resulted 01/29/20 16:02 Sputum Sputum Culture Pending Resulted 01/28/20 16:38 Rectum - Final NO CARBAPENEM-RESISTANT ENTEROBACTERI... Complete 01/28/20 16:06 Urine,Clean Catch Urine Culture - Preliminary Strep Species, Gamma-Hemolytic Resulted 01/28/20 15:25 Nasopharynx SARS-CoV-2 RdRp Gene Assay - Final Complete 01/28/20 15:25 Nasopharynx Coronavirus COVID-19 PCR (AURELIO) - Final Complete 01/28/20 00:00 Rectum VRE Culture - Final Enterococcus Faecium - Vre Complete 01/28/20 00:00 Nasal Nares MRSA Culture - Final NO METHICILLIN RESISTANT STAPH AUREUS... Complete Laboratory Tests Test 01/30/20 04:00 White Blood Count 6.4 K/UL (4.8-10.8) Red Blood Count 4.20 M/UL (4.20-5.40) Hemoglobin 10.4 G/DL (12.0-16.0) L Hematocrit 33.2 % (37.0-47.0) L Mean Corpuscular Volume 79 FL (80-99) L Mean Corpuscular Hemoglobin 24.7 PG (27.0-31.0) L Mean Corpuscular Hemoglobin Concent 31.2 G/DL (32.0-36.0) L Red Cell Distribution Width 16.4 % (11.6-14.8) H Platelet Count 350 K/UL (150-450) Mean Platelet Volume 3.8 FL (6.5-10.1) L Neutrophils (%) (Auto) 71.4 % (45.0-75.0) Lymphocytes (%) (Auto) 19.8 % (20.0-45.0) L Monocytes (%) (Auto) 7.1 % (1.0-10.0) Eosinophils (%) (Auto) 0.1 % (0.0-3.0) Basophils (%) (Auto) 1.7 % (0.0-2.0) Sodium Level 137 MMOL/L (136-145) Potassium Level 3.6 MMOL/L (3.5-5.1) Chloride Level 101 MMOL/L (98-107) Carbon Dioxide Level 27 MMOL/L (21-32) Anion Gap 9 mmol/L (5-15) Blood Urea Nitrogen 22 mg/dL (7-18) H Creatinine 0.6 MG/DL (0.55-1.30) Estimat Glomerular Filtration Rate > 60 mL/min (>60) Glucose Level 134 MG/DL (74-106) H Calcium Level 9.2 MG/DL (8.5-10.1) Current Medications Medications (Trade) Dose Ordered Sig/Lucina Route PRN Reason Start Time Stop Time Status Last Admin Dose Admin Acetaminophen (Tylenol) 650 mg Q4H PRN ORAL FEVER 01/28/20 22:30 02/27/20 22:29 Albuterol/ Ipratropium (Albuterol/ Ipratropium) 3 ml Q4H PRN HHN Shortness of Breath 01/28/20 22:30 02/02/20 22:29 Ceftriaxone Sodium 1 gm/ Dextrose 55 ml @ 110 mls/hr Q24H IVPB 01/28/20 23:00 02/04/20 22:59 01/29/20 22:05 Chlorhexidine Gluconate (Alejandra-Hex 2%) 1 applic DAILY@2000 TOPIC 01/30/20 20:00 04/29/20 19:59 Dextrose (Dextrose 50%) 25 ml Q30M PRN IV Hypoglycemia 01/28/20 22:30 04/27/20 22:29 Dextrose (Dextrose 50%) 50 ml Q30M PRN IV Hypoglycemia 01/28/20 22:30 04/27/20 22:29 Heparin Sodium (Porcine) (Heparin 5000 units/ml) 5,000 units EVERY 12 HOURS SUBQ 01/29/20 09:00 03/14/20 08:59 01/30/20 08:53 Hydralazine HCl (Apresoline) 50 mg BID ORAL 01/30/20 09:00 04/29/20 08:59 01/30/20 08:50 Ondansetron HCl (Zofran) 4 mg Q6H PRN IVP Nausea & Vomiting 01/28/20 22:30 02/27/20 22:29 Polyethylene Glycol (Miralax) 17 gm DAILYPRN PRN ORAL Constipation 01/28/20 22:30 02/27/20 22:29 Promethazine HCl/ Codeine (Phenergan with Codeine) 5 ml Q6H PRN ORAL cough 01/28/20 22:30 02/27/20 22:29 Vida Llamas M.D. Jan 30, 2020 12:52
--- NOTE | 2020-01-30 15:31 | NUR ---
CASE MANAGEMENT:REVIEW SI;UTI. SOB. CHF. HTN. COVID PUI. 98.6 87 24 96% ON RA BUN 22 IS;ZYVOX PO Q12 HYDRALAZINE PO BID HEPARIN SUBQ Q12 MED SURG STATUS DCP;FROM KHALIDA WALLER
[2020-01-30 16:00] VITALS: BP 130/68
--- NOTE | 2020-01-30 16:03 | Diagnostic Imaging Report ---
Indication: Cough Technique: One view of the chest Comparison: 01/28/2020 Findings: Prominent perihilar interstitial markings and bronchial wall thickening are probably on the basis of senescent changes, appears similar to the prior exam allowing for differences in exposure technique. No definite acute infiltrates, effusions, or congestion. Tiny calcified nodule projects in the left mid and lower lung periphery. Right arm PICC again demonstrated. No significant interim change Impression: No acute process
--- NOTE | 2020-01-30 16:48 | NUR ---
*-*DISCHARGE PLANNING*-* PATIENT HAS BEEN REFERRED TO: [facility] P: [phone] S/W RODOLFO, CANNOT ACCEPT PATIENT, DUE TO BED BOUND, CANNOT MEET PATIENTS NEEDS.
--- NOTE | 2020-01-30 19:21 | NUR ---
HAND-OFF: Report given to BHAVIN Berumen. PICC line in place, TKO; patient stable, no sing of SOB and distress at this time.
--- NOTE | 2020-01-30 19:32 | NUR ---
NURSE NOTES: Received report from mikey talbert. patient is on bed, asleep on bed. on room air, no sob. with PICC line on the right upper arm, double lumen; tko. no facial grimacing or moaning noted at the moment. per nitish, " 2 negative results of covid but + on the snf 01/24, dr. menezes wants to keep the isolation".bed alarm on. bed locked and in lowest position. call light and light button within easy reach. will continue plan of care.
[2020-01-30 20:00] VITALS: BP 118/56
[2020-01-30] MEDS: Dyna-Hex 2% Top Sol 2oz TOPIC SCH (20:36)
[2020-01-31] VITALS: BP 120/67
[2020-01-31 04:00] VITALS: BP 125/73
--- NOTE | 2020-01-31 06:39 | NUR ---
NURSE HAND-OFF: Important Events on Shift: bm today; repositioned Q2h Patient Status: stable Diet: regular pureed moist, thin liquids Pending Orders: Pending Results/Labs:pending lab results Pending MD notification: Latest Vital Signs: Temperature 97.9 , Pulse 83 , B/P 125 /73 , Respiratory Rate 20 , O2 SAT 96 , Room Air, O2 Flow Rate 2.0 . Vital Sign Comment: Latest Martinez Fall Score: 50 Fall Risk: High Risk Safety Measures: Call light Within Reach, Bed Alarm Zone 1, Side Rails Side Rails x2, Bed position Low and Locked. Fall Precautions: Yellow Socks Yellow Gown Door Sign Patient Fall Education
[2020-01-31 07:10] LABS: ANION GAP 8 mmol/L (5-15); BLOOD UREA NITROGEN 23 mg/dL (7-18); CALCIUM 8.8 MG/DL (8.5-10.1); CARBON DIOXIDE 27 MMOL/L (21-32); CHLORIDE 103 MMOL/L (98-107); CREATININE 0.6 MG/DL (0.55-1.30); POTASSIUM 3.2 MMOL/L (3.5-5.1); SODIUM 138 MMOL/L (136-145)
[2020-01-31 07:11] LABS: BASOPHILS % (AUTO) 1.6 % (0.0-2.0); EOSINOPHILS % (AUTO) 0.6 % (0.0-3.0); HEMATOCRIT 31.4 % (37.0-47.0); LYMPHOCYTES % (AUTO) 27.2 % (20.0-45.0); MEAN CORPUSCULAR VOLUME 79 FL (80-99); NEUTROPHILS % (AUTO) 63.5 % (45.0-75.0); PLATELET COUNT 322 K/UL (150-450); RED BLOOD COUNT 3.97 M/UL (4.20-5.40); RED CELL DISTRIBUTION WIDTH 16.3 % (11.6-14.8); WHITE BLOOD COUNT 6.6 K/UL (4.8-10.8)
--- NOTE | 2020-01-31 07:27 | NUR ---
HAND-OFF: Report given to mikey hector.
[2020-01-31 08:00] VITALS: BP 127/69
[2020-01-31] MEDS: HydrALAZINE 50mg tab ORAL SCH ×2 (09:44→18:10)
[2020-01-31] MEDS: Heparin 5000 units/ml inj SUBQ SCH ×2 (09:45→20:08)
[2020-01-31 12:00] VITALS: BP 121/63
--- NOTE | 2020-01-31 12:00 | NUR ---
DISCHARGE PLANNING PATIENT HAS BEEN REFERRED BACK TO [facility] RONALD WALLER P: [phone] F: [phone] Addendum: 01/31/20 at 1426 by JASPER MCCARTY LVN LVN S/[facility]. REQUESTING A REPEAT COVID PRIOR 2 RESULTS WERE FROM SAME DATE. WILFREDO PEREZ INFORMED AND WILL PLACE ORDER AND CARRY OUT.
--- NOTE | 2020-01-31 12:08 | Pulmonology Progress Note ---
Subjective ROS Limited/Unobtainable: Yes Allergies: Coded Allergies: No Known Allergies (Unverified , 04/17/19) All Systems: reviewed and negative except above Objective Last 24 Hour Vital Signs Date Time Temp Pulse Resp B/P (MAP) Pulse Ox O2 Delivery O2 Flow Rate FiO2 01/31/20 09:44 127/69 01/31/20 08:00 97.0 83 18 127/69 (88) 93 01/31/20 04:00 97.9 83 20 125/73 (90) 96 01/31/20 00:00 98.1 84 20 120/67 (84) 95 01/30/20 21:00 Room Air 01/30/20 20:00 99.0 85 18 118/56 (76) 99 01/30/20 17:12 130/68 01/30/20 16:00 98.5 70 18 130/68 (88) 97 Intake and Output 01/30/20 01/31/20 19:00 07:00 Intake Total 500 ml 200 ml Balance 500 ml 200 ml Intake Oral 200 ml Other 500 ml # Voids 3 # Bowel Movements 1 General Appearance: cachetic HEENT: normocephalic, atraumatic Respiratory: chest wall non-tender, lungs clear Breasts: no masses Cardiovascular: normal peripheral pulses Abdomen: normal bowel sounds, soft, non tender Genitourinary: normal external genitalia Skin: no rash 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 Complete 01/28/20 16:06 Urine,Clean Catch Urine Culture - Preliminary Enterococcus Faecium - Vre Resulted 01/28/20 15:25 Nasopharynx SARS-CoV-2 RdRp Gene Assay - Final Complete 01/28/20 15:25 Nasopharynx Coronavirus COVID-19 PCR (AURELIO) - Final Complete 01/28/20 15:23 Blood Blood Culture - Preliminary NO GROWTH AFTER 48 HOURS Resulted 01/28/20 15:08 Blood Blood Culture - Preliminary NO GROWTH AFTER 48 HOURS Resulted Laboratory Tests 01/31/20 05:00: White Blood Count 6.6, Red Blood Count 3.97L, Hemoglobin 10.0L, Hematocrit 31.4L , Mean Corpuscular Volume 79L, Mean Corpuscular Hemoglobin 25.2L, Mean Corpuscular Hemoglobin Concent 31.9L, Red Cell Distribution Width 16.3H, Platel et Count 322, Mean Platelet Volume 3.8L, Neutrophils (%) (Auto) 63.5, Lymphocytes (%) (Auto) 27.2, Monocytes (%) (Auto) 7.0, Eosinophils (%) (Auto) 0.6, Basophils (%) (Auto) 1.6, Sodium Level 138, Potassium Level 3.2L, Chloride Level 103, Carbon Dioxide Level 27, Anion Gap 8, Blood Urea Nitrogen 23H, Creatinine 0.6, Estimat Glomerular Filtration Rate > 60, Glucose Level 116H, Calcium Level 8.8 Current Medications Medications (Trade) Dose Ordered Sig/Lucina Route PRN Reason Start Time Stop Time Status Last Admin Dose Admin Acetaminophen (Tylenol) 650 mg Q4H PRN ORAL FEVER 01/28/20 22:30 02/27/20 22:29 Albuterol/ Ipratropium (Albuterol/ Ipratropium) 3 ml Q4H PRN HHN Shortness of Breath 01/28/20 22:30 02/02/20 22:29 Chlorhexidine Gluconate (Alejandra-Hex 2%) 1 applic DAILY@1999 TOPIC 01/30/20 20:00 04/29/20 19:59 01/30/20 20:36 Dextrose (Dextrose 50%) 25 ml Q30M PRN IV Hypoglycemia 01/28/20 22:30 04/27/20 22:29 Dextrose (Dextrose 50%) 50 ml Q30M PRN IV Hypoglycemia 01/28/20 22:30 04/27/20 22:29 Heparin Sodium (Porcine) (Heparin 5000 units/ml) 5,000 units EVERY 12 HOURS SUBQ 01/29/20 09:00 03/14/20 08:59 01/31/20 09:45 Hydralazine HCl (Apresoline) 50 mg BID ORAL 01/30/20 09:00 04/29/20 08:59 01/31/20 09:44 Linezolid (Zyvox) 600 mg EVERY 12 HOURS ORAL 01/30/20 13:30 02/04/20 13:29 01/31/20 09:44 Ondansetron HCl (Zofran) 4 mg Q6H PRN IVP Nausea & Vomiting 01/28/20 22:30 02/27/20 22:29 Polyethylene Glycol (Miralax) 17 gm DAILYPRN PRN ORAL Constipation 01/28/20 22:30 02/27/20 22:29 Promethazine HCl/ Codeine (Phenergan with Codeine) 5 ml Q6H PRN ORAL cough 01/28/20 22:30 02/27/20 22:29 Assessment/Plan Problems: (1) Nosocomial pneumonia (2) Chronic atrial fibrillation (3) Episode of generalized weakness (4) HTN (hypertension) (5) Hypothyroid (6) History of CVA (cerebrovascular accident) Assessment/Plan staph in sputum CXR 01/29, no acute changes Repeat COVID was negative ID consult appreciated continue empiric abx f/u cultures monitor BP symptomatic treatment dvt prophylaxis aspiration precaution Obey Daniel MD Jan 31, 2020 12:08
--- NOTE | 2020-01-31 12:33 | General Progress Note ---
Subjective Constitutional: Reports: weakness Allergies: Coded Allergies: No Known Allergies (Unverified , 04/17/19) All Systems: reviewed and negative except above Subjective calm in bed Objective Last 24 Hour Vital Signs Date Time Temp Pulse Resp B/P (MAP) Pulse Ox O2 Delivery O2 Flow Rate FiO2 01/31/20 09:44 127/69 01/31/20 08:00 97.0 83 18 127/69 (88) 93 01/31/20 04:00 97.9 83 20 125/73 (90) 96 01/31/20 00:00 98.1 84 20 120/67 (84) 95 01/30/20 21:00 Room Air 01/30/20 20:00 99.0 85 18 118/56 (76) 99 01/30/20 17:12 130/68 01/30/20 16:00 98.5 70 18 130/68 (88) 97 Intake and Output 01/30/20 01/31/20 18:59 06:59 Intake Total 500 ml 200 ml Balance 500 ml 200 ml Intake Oral 200 ml Other 500 ml # Voids 3 # Bowel Movements 1 Laboratory Tests 01/31/20 05:00: White Blood Count 6.6, Red Blood Count 3.97L, Hemoglobin 10.0L, Hematocrit 31.4L , Mean Corpuscular Volume 79L, Mean Corpuscular Hemoglobin 25.2L, Mean Corpuscular Hemoglobin Concent 31.9L, Red Cell Distribution Width 16.3H, Platelet Count 322, Mean Platelet Volume 3.8L, Neutrophils (%) (Auto) 63.5, Lymphocytes (%) (Auto) 27.2, Monocytes (%) (Auto) 7.0, Eosinophils (%) (Auto) 0.6, Basophils (%) (Auto) 1.6, Sodium Level 138, Potassium Level 3.2L, Chloride Level 103, Carbon Dioxide Level 27, Anion Gap 8, Blood Urea Nitrogen 23H, Creatinine 0.6, Estimat Glomerular Filtration Rate > 60, Glucose Level 116H, Calcium Level 8.8 Height (Feet): 5 Height (Inches): 1.00 Weight (Pounds): 105 General Appearance: lethargic EENT: normal ENT inspection Neck: normal alignment Cardiovascular: normal peripheral pulses, normal rate, regular rhythm Respiratory/Chest: chest wall non-tender, lungs clear, normal breath sounds Abdomen: normal bowel sounds, non tender, soft Extremities: normal inspection Edema: no edema noted Arm (L), no edema noted Arm (R), no edema noted Leg (L), no edema noted Leg (R), no edema noted Pedal (L), no edema noted Pedal (R), no edema noted Generalized Neurologic: motor weakness Skin: normal pigmentation, warm/dry Assessment/Plan Problem List: (1) CHF (congestive heart failure) ICD Codes: I50.9 - Heart failure, unspecified SNOMED: 94576259 (2) Malnutrition ICD Codes: E46 - Unspecified protein-calorie malnutrition SNOMED: 81753663 (3) UTI (urinary tract infection) ICD Codes: N39.0 - Urinary tract infection, site not specified SNOMED: 88144070 Qualifiers: Qualified Codes: N39.0 - Urinary tract infection, site not specified (4) COVID-19 ICD Codes: U07.1 - COVID-19 SNOMED: 814576074 (5) Episode of generalized weakness ICD Codes: R53.1 - Weakness SNOMED: 31064013 (6) HTN (hypertension) ICD Codes: I10 - Essential (primary) hypertension SNOMED: 20846099 (7) Hypothyroid ICD Codes: E03.9 - Hypothyroidism, unspecified SNOMED: 31337010 (8) History of CVA (cerebrovascular accident) ICD Codes: Z86.73 - Personal history of transient ischemic attack (TIA), and cerebral infarction without residual deficits SNOMED: 594965300 Status: stable, progressing Assessment/Plan: o2 pulm tx abx pt diet cbc bp am dc to snf if all clear Jesus Palomo DO Jan 31, 2020 12:32
--- NOTE | 2020-01-31 13:22 | Infectious Diseases Prog Note ---
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 Will continue to follow along with you. Discussed with RN. Subjective Allergies: Coded Allergies: No Known Allergies (Unverified , 04/17/19) afebrile at RA no leukocytosis Objective Last 24 Hour Vital Signs Date Time Temp Pulse Resp B/P (MAP) Pulse Ox O2 Delivery O2 Flow Rate FiO2 01/31/20 09:44 127/69 01/31/20 08:00 97.0 83 18 127/69 (88) 93 01/31/20 04:00 97.9 83 20 125/73 (90) 96 01/31/20 00:00 98.1 84 20 120/67 (84) 95 01/30/20 21:00 Room Air 01/30/20 20:00 99.0 85 18 118/56 (76) 99 01/30/20 17:12 130/68 01/30/20 16:00 98.5 70 18 130/68 (88) 97 Height (Feet): 5 Height (Inches): 1.00 Weight (Pounds): 105 General Appearance: no apparent distress, alert Head: normocephalic, atraumatic Eyes: bilateral eye normal inspection, bilateral eye PERRL ENT: hearing grossly normal, normal pharynx, no angioedema, normal voice Neck: full range of motion, supple/symm/no masses Respiratory: chest non-tender, lungs clear, normal breath sounds, speaking full sentences Cardiovascular #1: regular rate, rhythm, no edema Gastrointestinal: normal bowel sounds, non tender, soft, non-distended, no guarding, no rebound Genitourinary: normal inspection, no CVA tenderness Musculoskeletal: back normal, normal range of motion, gait/station normal, non- tender Microbiology Date/Time Source Procedure Growth Status 01/29/20 16:02 Sputum Gram Stain - Final Resulted 01/29/20 16:02 Sputum Culture - Preliminary Staphylococcus Aureus Usual Respiratory Eve Resulted 01/28/20 16:38 Rectum - Final NO CARBAPENEM-RESISTANT ENTEROBACTERI... Complete 01/28/20 16:06 Urine,Clean Catch Urine Culture - Preliminary Enterococcus Faecium - Vre Resulted 01/28/20 15:25 Nasopharynx SARS-CoV-2 RdRp Gene Assay - Final Complete 01/28/20 15:25 Nasopharynx Coronavirus COVID-19 PCR (AURELIO) - Final Complete 01/28/20 15:23 Blood Blood Culture - Preliminary NO GROWTH AFTER 48 HOURS Resulted 01/28/20 15:08 Blood Blood Culture - Preliminary NO GROWTH AFTER 48 HOURS Resulted Laboratory Tests Test 01/31/20 05:00 White Blood Count 6.6 K/UL (4.8-10.8) Red Blood Count 3.97 M/UL (4.20-5.40) L Hemoglobin 10.0 G/DL (12.0-16.0) L Hematocrit 31.4 % (37.0-47.0) L Mean Corpuscular Volume 79 FL (80-99) L Mean Corpuscular Hemoglobin 25.2 PG (27.0-31.0) L Mean Corpuscular Hemoglobin Concent 31.9 G/DL (32.0-36.0) L Red Cell Distribution Width 16.3 % (11.6-14.8) H Platelet Count 322 K/UL (150-450) Mean Platelet Volume 3.8 FL (6.5-10.1) L Neutrophils (%) (Auto) 63.5 % (45.0-75.0) Lymphocytes (%) (Auto) 27.2 % (20.0-45.0) Monocytes (%) (Auto) 7.0 % (1.0-10.0) Eosinophils (%) (Auto) 0.6 % (0.0-3.0) Basophils (%) (Auto) 1.6 % (0.0-2.0) Sodium Level 138 MMOL/L (136-145) Potassium Level 3.2 MMOL/L (3.5-5.1) L Chloride Level 103 MMOL/L (98-107) Carbon Dioxide Level 27 MMOL/L (21-32) Anion Gap 8 mmol/L (5-15) Blood Urea Nitrogen 23 mg/dL (7-18) H Creatinine 0.6 MG/DL (0.55-1.30) Estimat Glomerular Filtration Rate > 60 mL/min (>60) Glucose Level 116 MG/DL (74-106) H Calcium Level 8.8 MG/DL (8.5-10.1) Current Medications Medications (Trade) Dose Ordered Sig/Lucina Route PRN Reason Start Time Stop Time Status Last Admin Dose Admin Acetaminophen (Tylenol) 650 mg Q4H PRN ORAL FEVER 01/28/20 22:30 02/27/20 22:29 Albuterol/ Ipratropium (Albuterol/ Ipratropium) 3 ml Q4H PRN HHN Shortness of Breath 01/28/20 22:30 02/02/20 22:29 Chlorhexidine Gluconate (Alejandra-Hex 2%) 1 applic DAILY@1999 TOPIC 01/30/20 20:00 04/29/20 19:59 01/30/20 20:36 Dextrose (Dextrose 50%) 25 ml Q30M PRN IV Hypoglycemia 01/28/20 22:30 04/27/20 22:29 Dextrose (Dextrose 50%) 50 ml Q30M PRN IV Hypoglycemia 01/28/20 22:30 04/27/20 22:29 Heparin Sodium (Porcine) (Heparin 5000 units/ml) 5,000 units EVERY 12 HOURS SUBQ 01/29/20 09:00 03/14/20 08:59 01/31/20 09:45 Hydralazine HCl (Apresoline) 50 mg BID ORAL 01/30/20 09:00 04/29/20 08:59 01/31/20 09:44 Linezolid (Zyvox) 600 mg EVERY 12 HOURS ORAL 01/30/20 13:30 02/04/20 13:29 01/31/20 09:44 Ondansetron HCl (Zofran) 4 mg Q6H PRN IVP Nausea & Vomiting 01/28/20 22:30 02/27/20 22:29 Polyethylene Glycol (Miralax) 17 gm DAILYPRN PRN ORAL Constipation 01/28/20 22:30 02/27/20 22:29 Potassium Chloride (K-Dur) 40 meq ONCE ORAL 01/31/20 13:30 01/31/20 14:30 Promethazine HCl/ Codeine (Phenergan with Codeine) 5 ml Q6H PRN ORAL cough 01/28/20 22:30 02/27/20 22:29 Vida Llamas M.D. Jan 31, 2020 13:22
--- NOTE | 2020-01-31 13:43 | NUR ---
HORTICULTURE INSTRUCTOR NOTE SW called [facility]NOTE 3] psych [phone] and was informed that pt cannot be referred as pt is bed bound.
--- NOTE | 2020-01-31 13:45 | NUR ---
NURSE NOTES: Received report from BHAVIN Zamorano for re-assignment, pt in bed, alert and oriented x 2, no SOB, bed in lowest position with breaks engaged and alarm on, on contact and droplet precaution, denies any pain upon assessment, PICC line present on YENIFER with no bleeding, dressing clean and intact, on room air, will continue to monitor and proceed with plan of care, call light within reach.
--- NOTE | 2020-01-31 15:53 | NUR ---
NURSE NOTES: Received call from microbiology patient is COVID positive. Isoaltions are already n place, will call MD Llamas.
[2020-01-31 16:00] VITALS: BP 119/69
--- NOTE | 2020-01-31 16:13 | NUR ---
NURSE NOTES: Notified Dr. Llamas regarding COVID 19 positive result. NNO at this time. Will continue to monitor.
--- NOTE | 2020-01-31 16:32 | NUR ---
DISCHARGE PLANNING PATIENT HAS BEEN REFERRED TO [facility] P: [phone] F: [phone]
--- NOTE | 2020-01-31 19:19 | NUR ---
NURSE HAND-OFF: Important Events on Shift:[positive covid 19, wound care, turning and repositioning, safety and comfort] Patient Status: [stable] Diet: [regular] Pending Orders: [] Pending Results/Labs:[] Pending MD notification:[] Latest Vital Signs: Temperature 98.8 , Pulse 81 , B/P 119 /69 , Respiratory Rate 19 , O2 SAT 95 , Room Air, O2 Flow Rate 2.0 . Vital Sign Comment: [] Latest Martinez Fall Score: 50 Fall Risk: High Risk Safety Measures: Call light Within Reach, Bed Alarm Zone 1, Side Rails Side Rails x2, Bed position Low and Locked. Fall Precautions: Yellow Socks Yellow Gown Door Sign Patient Fall Education Report given to SANDOVAL Ferrari].
[2020-01-31 20:00] VITALS: BP 143/54
--- NOTE | 2020-01-31 20:00 | NUR ---
NURSE NOTES: RECEIVED PATIENT LYING IN BED, EYES CLOSED, AWAKENED TO NAME, NON VERBAL DURING ASSESSMENT. PICC LINE INTACT TO RIGHT UPPER ARM/DOUBLE LUMEN, DRESSING CHANGED 01/28, NO SIGNS OF INFECTION. NO SIGNS AND SYMPTOMS OF ACUTE CARDIO RESPIRATORY DISTRESS/SHORTNESS OF BREATH, NO PERIPHERAL EDEMA NOTED. DROPLET ISOLATION ONGOING. INCONTINENT OF B/B, CARE PROVIDED, REPOSITIONED FOR COMFORT/PRESSURE RELIEF, TOLERATED WELL. SIDE RAILS UP X3, BED IN LOWEST POSITION FOR SAFETY, CALL LIGHT WITHIN REACH AT ALL TIMES. HOURLY ROUNDING FOR SAFETY/NEEDS. BED ALARM ACTIVATED FOR SAFETY.
[2020-01-31] MEDS: Dyna-Hex 2% Top Sol 2oz TOPIC SCH (20:06)
[2020-02-01] VITALS: BP 137/61
--- NOTE | 2020-02-01 03:00 | NUR ---
NURSE NOTES: RECEIVED NOTIFICATION FROM SALVADOR, MICROBIOLOGY; PATIENT POSITIVE MRSA SPUTUM-
[2020-02-01 04:00] VITALS: BP 127/72
--- NOTE | 2020-02-01 04:51 | NUR ---
NURSE HAND-OFF: Important Events on Shift:[SPUTUM-MRSA POSITIVE] Patient Status: [STABLE, UNEVENTFUL NIGHT] Diet: [REGULAR PUREE MOIST, THIN LIQUIDS] Pending Orders: [AM LABS] Pending Results/Labs:[] Pending MD notification:[SPUTUM MRSA POSITIVE, MESSAGE LEFT FOR DR. MARISCAL, ID] Latest Vital Signs: Temperature 97.5 , Pulse 78 , B/P 127 /72 , Respiratory Rate 19 , O2 SAT 98 , Room Air, O2 Flow Rate 2.0 . Vital Sign Comment: [STABLE, AFEBRILE] Latest Martinez Fall Score: 50 Fall Risk: High Risk Safety Measures: Call light Within Reach, Bed Alarm Zone 1, Side Rails Side Rails x2, Bed position Low and Locked. Fall Precautions: Yellow Socks Yellow Gown Door Sign Patient Fall Education Report given to [BHAVIN COTE].
[2020-02-01 05:00] LABS: BASOPHILS % (AUTO) 3.3 % (0.0-2.0); EOSINOPHILS % (AUTO) 1.3 % (0.0-3.0); HEMATOCRIT 30.6 % (37.0-47.0); HEMOGLOBIN 9.6 G/DL (12.0-16.0); LYMPHOCYTES % (AUTO) 31.1 % (20.0-45.0); MEAN CORPUSCULAR VOLUME 79 FL (80-99); MONOCYTES % (AUTO) 7.2 % (1.0-10.0); NEUTROPHILS % (AUTO) 57.1 % (45.0-75.0); PLATELET COUNT 331 K/UL (150-450); RED BLOOD COUNT 3.86 M/UL (4.20-5.40); RED CELL DISTRIBUTION WIDTH 16.2 % (11.6-14.8); WHITE BLOOD COUNT 5.4 K/UL (4.8-10.8)
[2020-02-01 05:07] LABS: ANION GAP 9 mmol/L (5-15); BLOOD UREA NITROGEN 26 mg/dL (7-18); CALCIUM 9.3 MG/DL (8.5-10.1); CARBON DIOXIDE 26 MMOL/L (21-32); CHLORIDE 104 MMOL/L (98-107); CREATININE 0.5 MG/DL (0.55-1.30); POTASSIUM 3.7 MMOL/L (3.5-5.1); SODIUM 139 MMOL/L (136-145)
--- NOTE | 2020-02-01 06:51 | NUR ---
NURSE NOTES: TELEPHONE CALL PLACED TO DR. MARISCAL , ID, REGARDING POSITIVE MRSA SPUTUM RESULT, LEFT MESSAGE WITH REGINA, SUBSTATION MAINTENANCE TECHNICIAN, WILL AWAIT RETURN CALL, CN AWARE.
[2020-02-01 08:00] VITALS: BP 114/55
--- NOTE | 2020-02-01 08:02 | NUR ---
NURSE NOTES: Received patient in bed, she is AXO0, non verbal, poor appetite, She is resting in bed comfortably without any respiratory distress. She ate about 5% of breakfast, hob 30 degrees, bilateral feet elevated, IV patent, clean dressing. When asking questions to the patient she responds by shaking her head or nodding. She is covid positive and will be monitored for safety. Call light within reach, bed at the lowest position. MRSA + of the nares, Dr Llamas notified, awaiting orders. Patient on airborne isolation.
[2020-02-01] MEDS: HydrALAZINE 50mg tab ORAL SCH (08:27)
[2020-02-01] MEDS: Heparin 5000 units/ml inj SUBQ SCH (08:28)
--- NOTE | 2020-02-01 08:36 | NUR ---
RD ASSESSMENT & RECOMMENDATIONS SEE CARE ACTIVITY FOR COMPLETE ASSESSMENT DAILY ESTIMATED NEEDS: Needs based on Wounds/ 46kg 25-35 kcals/kg 6397-0523 total kcals 1.25-1.5 g protein/kg 57-69 g total protein 25-30 mL/kg 6225-2070 total fluid mLs NUTRITION DIAGNOSIS: * Increased kcal/prot intake needs R/T wound healing as evidenced by pt admitted w/ stage 3 lt buttock wound, stage 2 lt hip wound, DTI @ BL heels, stage 1 @ Rt lateral, BL medial foot * Swallowing difficulty R/T decreased mentation, dysphagia as evidenced by pt on pureed moist texture diet. CURRENT DIET:Regular, pureed moist w/ thin liquids PO DIET RECOMMENDATIONS: Liberalized REGULAR/ texture per SLIDER ASSEMBLER ENTERAL NUTRITION RECOMMENDATIONS: CONSULT RD IF TF INDICATED ADDITIONAL RECOMMENDATIONS: * SLIDER ASSEMBLER evaluation for appropriate texture/ safety of oral diet * Monitor PO intake and tolerance, need for nonoral feeds * Ensure Enlive BID w/ meals for now, monitor, increase w/ good acceptance * Consider Kcal count x 48 hrs * Wound healing: add MVI x 1, Vit C 500mg BID, ZnSO4 220mg QD x 10 days Navdeep BID as tolerated * Calibrated bedscale wt: inconsistently daily wts
--- NOTE | 2020-02-01 09:36 | NUR ---
DISCHARGE PLANNING S/W JULIANN AT [facility] WHO STATED THAT HE IS ABLE TO ACCEPT PATIENT FOR ADMISSION TODAY PENDING VERIFICATION OF AVAILABLE MEDICARE DAYS. JULIANN TO FOLLOW UP WITH THIS CM IN RE TO BED ASSIGNMENT.
--- NOTE | 2020-02-01 09:46 | General Progress Note ---
Subjective Constitutional: Reports: weakness Allergies: Coded Allergies: No Known Allergies (Unverified , 04/17/19) All Systems: reviewed and negative except above Subjective calm in bed Objective Last 24 Hour Vital Signs Date Time Temp Pulse Resp B/P (MAP) Pulse Ox O2 Delivery O2 Flow Rate FiO2 02/01/20 08:27 114/55 02/01/20 08:00 97.7 72 16 114/55 (74) 94 02/01/20 04:00 97.5 78 19 127/72 (90) 98 02/01/20 00:00 97.3 82 20 137/61 (86) 99 01/31/20 21:00 Room Air 01/31/20 20:00 97.6 85 18 143/54 (83) 97 01/31/20 18:10 119/69 01/31/20 16:00 98.8 81 19 119/69 (86) 95 01/31/20 12:00 98.8 86 19 121/63 (82) 94 Intake and Output 01/31/20 02/01/20 19:00 07:00 Intake Total 700 ml 180 ml Balance 700 ml 180 ml Intake Oral 200 ml 180 ml Other 500 ml # Voids 2 3 # Bowel Movements 3 Laboratory Tests 02/01/20 04:30: White Blood Count 5.4, Red Blood Count 3.86L, Hemoglobin 9.6L, Hematocrit 30.6L, Mean Corpuscular Volume 79L, Mean Corpuscular Hemoglobin 24.9L, Mean Corpuscular Hemoglobin Concent 31.4L, Red Cell Distribution Width 16.2H, Platelet Count 331, Mean Platelet Volume 4.4L, Neutrophils (%) (Auto) 57.1, Lymphocytes (%) (Auto) 31.1, Monocytes (%) (Auto) 7.2, Eosinophils (%) (Auto) 1.3, Basophils (%) (Auto) 3.3H, Sodium Level 139, Potassium Level 3.7, Chloride Level 104, Carbon Dioxide Level 26, Anion Gap 9, Blood Urea Nitrogen 26H, Creatinine 0.5L, Estimat Glomerular Filtration Rate > 60, Glucose Level 109H, Calcium Level 9.3 Height (Feet): 5 Height (Inches): 1.00 Weight (Pounds): 105 General Appearance: lethargic EENT: normal ENT inspection Neck: normal alignment Cardiovascular: normal peripheral pulses, normal rate, regular rhythm Respiratory/Chest: chest wall non-tender, lungs clear, normal breath sounds Abdomen: normal bowel sounds, non tender, soft Extremities: normal inspection Edema: no edema noted Arm (L), no edema noted Arm (R), no edema noted Leg (L), no edema noted Leg (R), no edema noted Pedal (L), no edema noted Pedal (R), no edema noted Generalized Neurologic: motor weakness Skin: normal pigmentation, warm/dry Assessment/Plan Problem List: (1) CHF (congestive heart failure) ICD Codes: I50.9 - Heart failure, unspecified SNOMED: 03432697 (2) Malnutrition ICD Codes: E46 - Unspecified protein-calorie malnutrition SNOMED: 97945548 (3) UTI (urinary tract infection) ICD Codes: N39.0 - Urinary tract infection, site not specified SNOMED: 91078974 Qualifiers: Qualified Codes: N39.0 - Urinary tract infection, site not specified (4) COVID-19 ICD Codes: U07.1 - COVID-19 SNOMED: 255024772 (5) Episode of generalized weakness ICD Codes: R53.1 - Weakness SNOMED: 65531753 (6) HTN (hypertension) ICD Codes: I10 - Essential (primary) hypertension SNOMED: 85679144 (7) Hypothyroid ICD Codes: E03.9 - Hypothyroidism, unspecified SNOMED: 91337900 (8) History of CVA (cerebrovascular accident) ICD Codes: Z86.73 - Personal history of transient ischemic attack (TIA), and cerebral infarction without residual deficits SNOMED: 022737746 Status: stable, progressing Assessment/Plan: o2 pulm tx abx pt diet cbc bp am dc to snf if all clear Jesus Palomo DO Feb 01, 2020 09:46
--- NOTE | 2020-02-01 10:35 | NUR ---
NURSE NOTES: Patient MRSA nares came back positive today at 03:00. Dr Llamas notified. no new orders.
--- NOTE | 2020-02-01 11:13 | Pulmonology Progress Note ---
Subjective ROS Limited/Unobtainable: Yes Allergies: Coded Allergies: No Known Allergies (Unverified , 04/17/19) All Systems: reviewed and negative except above Objective Last 24 Hour Vital Signs Date Time Temp Pulse Resp B/P (MAP) Pulse Ox O2 Delivery O2 Flow Rate FiO2 02/01/20 09:00 Room Air 02/01/20 08:27 114/55 02/01/20 08:00 97.7 72 16 114/55 (74) 94 02/01/20 04:00 97.5 78 19 127/72 (90) 98 02/01/20 00:00 97.3 82 20 137/61 (86) 99 01/31/20 21:00 Room Air 01/31/20 20:00 97.6 85 18 143/54 (83) 97 01/31/20 18:10 119/69 01/31/20 16:00 98.8 81 19 119/69 (86) 95 01/31/20 12:00 98.8 86 19 121/63 (82) 94 Intake and Output 01/31/20 02/01/20 19:00 07:00 Intake Total 700 ml 180 ml Balance 700 ml 180 ml Intake Oral 200 ml 180 ml Other 500 ml # Voids 2 3 # Bowel Movements 3 General Appearance: cachetic HEENT: normocephalic, atraumatic Respiratory: chest wall non-tender, lungs clear Breasts: no masses Cardiovascular: normal peripheral pulses Abdomen: normal bowel sounds, soft, non tender Genitourinary: normal external genitalia Skin: no rash Neurologic: store consultant II-XII grossly normal Lymphatic: no neck adenopathy Microbiology Date/Time Source Procedure Growth Status 01/31/20 14:45 Nasopharynx SARS-CoV-2 RdRp Gene Assay - Final Complete 01/29/20 16:02 Sputum Gram Stain - Final Complete 01/29/20 16:02 Sputum Culture - Final Staphylococcus Aureus - Mrsa Usual Respiratory Eve Complete Laboratory Tests 02/01/20 04:30: White Blood Count 5.4, Red Blood Count 3.86L, Hemoglobin 9.6L, Hematocrit 30.6L, Mean Corpuscular Volume 79L, Mean Corpuscular Hemoglobin 24.9L, Mean Corpuscular Hemoglobin Concent 31.4L, Red Cell Distribution Width 16.2H, Platelet Count 331, Mean Platelet Volume 4.4L, Neutrophils (%) (Auto) 57.1, Lymphocytes (%) (Auto) 31.1, Monocytes (%) (Auto) 7.2, Eosinophils (%) (Auto) 1.3, Basophils (%) (Auto) 3.3H, Sodium Level 139, Potassium Level 3.7, Chloride Level 104, Carbon Dioxide Level 26, Anion Gap 9, Blood Urea Nitrogen 26H, Creatinine 0.5L, Estimat Glomerular Filtration Rate > 60, Glucose Level 109H, Calcium Level 9.3 Current Medications Medications (Trade) Dose Ordered Sig/Lucina Route PRN Reason Start Time Stop Time Status Last Admin Dose Admin Acetaminophen (Tylenol) 650 mg Q4H PRN ORAL FEVER 01/28/20 22:30 02/27/20 22:29 Albuterol/ Ipratropium (Albuterol/ Ipratropium) 3 ml Q4H PRN HHN Shortness of Breath 01/28/20 22:30 02/02/20 22:29 Chlorhexidine Gluconate (Alejandra-Hex 2%) 1 applic DAILY@2000 TOPIC 01/30/20 20:00 04/29/20 19:59 01/31/20 20:06 Dextrose (Dextrose 50%) 25 ml Q30M PRN IV Hypoglycemia 01/28/20 22:30 04/27/20 22:29 Dextrose (Dextrose 50%) 50 ml Q30M PRN IV Hypoglycemia 01/28/20 22:30 04/27/20 22:29 Heparin Sodium (Porcine) (Heparin 5000 units/ml) 5,000 units EVERY 12 HOURS SUBQ 01/29/20 09:00 03/14/20 08:59 02/01/20 08:28 Hydralazine HCl (Apresoline) 50 mg BID ORAL 01/30/20 09:00 04/29/20 08:59 02/01/20 08:27 Linezolid (Zyvox) 600 mg EVERY 12 HOURS ORAL 01/30/20 13:30 02/04/20 13:29 02/01/20 08:27 Ondansetron HCl (Zofran) 4 mg Q6H PRN IVP Nausea & Vomiting 01/28/20 22:30 02/27/20 22:29 Polyethylene Glycol (Miralax) 17 gm DAILYPRN PRN ORAL Constipation 01/28/20 22:30 02/27/20 22:29 Promethazine HCl/ Codeine (Phenergan with Codeine) 5 ml Q6H PRN ORAL cough 01/28/20 22:30 02/27/20 22:29 Assessment/Plan Problems: (1) COVID-19 Assessment & Plan: COVID screening for discharge planning turned out positive (2) Nosocomial pneumonia (3) Chronic atrial fibrillation (4) Episode of generalized weakness (5) HTN (hypertension) (6) Hypothyroid (7) History of CVA (cerebrovascular accident) Assessment/Plan staph in sputum CXR 01/29, no acute changes Repeat COVID was negative ID consult appreciated continue empiric abx f/u cultures monitor BP symptomatic treatment dvt prophylaxis aspiration precaution Obey Daniel MD Feb 01, 2020 11:13
--- NOTE | 2020-02-01 11:57 | Infectious Diseases Prog Note ---
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 No acute process Afebrile No leukocytosis Probable UTI -01/27 u/a wbc 10-25, nit neg, leuk +2; ucx >100k VRE HTN Afib HLD CVA/TIA SNF resident ([facility], [place]) VRE colonized Plan: -PO Zyvox #3/5 for VRE UTI -01/29 SP Ceftriaxone #3 -01/28 SP Decadron and Azithromycin #2 -01/27 SP LEvaquin x1 -f/u cx -Monitor CBC/CMP, temperatures -Continue COVID19 isolation until 02/04/20 as long as remains afebrile Thank you for this consultation. Will continue to follow along with you. Discussed with RN. Subjective Allergies: Coded Allergies: No Known Allergies (Unverified , 04/17/19) afebrile at RA no leukocytosis discharge planning Objective Last 24 Hour Vital Signs Date Time Temp Pulse Resp B/P (MAP) Pulse Ox O2 Delivery O2 Flow Rate FiO2 02/01/20 09:00 Room Air 02/01/20 08:27 114/55 02/01/20 08:00 97.7 72 16 114/55 (74) 94 02/01/20 04:00 97.5 78 19 127/72 (90) 98 02/01/20 00:00 97.3 82 20 137/61 (86) 99 01/31/20 21:00 Room Air 01/31/20 20:00 97.6 85 18 143/54 (83) 97 01/31/20 18:10 119/69 01/31/20 16:00 98.8 81 19 119/69 (86) 95 01/31/20 12:00 98.8 86 19 121/63 (82) 94 Height (Feet): 5 Height (Inches): 1.00 Weight (Pounds): 105 General Appearance: no apparent distress, alert Head: normocephalic, atraumatic Eyes: bilateral eye normal inspection, bilateral eye PERRL ENT: hearing grossly normal, normal pharynx, no angioedema, normal voice Neck: full range of motion, supple/symm/no masses Respiratory: chest non-tender, lungs clear, normal breath sounds, speaking full sentences Cardiovascular #1: regular rate, rhythm, no edema Gastrointestinal: normal bowel sounds, non tender, soft, non-distended, no guarding, no rebound Genitourinary: normal inspection, no CVA tenderness Musculoskeletal: back normal, normal range of motion, gait/station normal, non- tender Microbiology Date/Time Source Procedure Growth Status 01/31/20 14:45 Nasopharynx SARS-CoV-2 RdRp Gene Assay - Final Complete 01/29/20 16:02 Sputum Gram Stain - Final Complete 01/29/20 16:02 Sputum Culture - Final Staphylococcus Aureus - Mrsa Usual Respiratory Eve Complete Laboratory Tests Test 02/01/20 04:30 White Blood Count 5.4 K/UL (4.8-10.8) Red Blood Count 3.86 M/UL (4.20-5.40) L Hemoglobin 9.6 G/DL (12.0-16.0) L Hematocrit 30.6 % (37.0-47.0) L Mean Corpuscular Volume 79 FL (80-99) L Mean Corpuscular Hemoglobin 24.9 PG (27.0-31.0) L Mean Corpuscular Hemoglobin Concent 31.4 G/DL (32.0-36.0) L Red Cell Distribution Width 16.2 % (11.6-14.8) H Platelet Count 331 K/UL (150-450) Mean Platelet Volume 4.4 FL (6.5-10.1) L Neutrophils (%) (Auto) 57.1 % (45.0-75.0) Lymphocytes (%) (Auto) 31.1 % (20.0-45.0) Monocytes (%) (Auto) 7.2 % (1.0-10.0) Eosinophils (%) (Auto) 1.3 % (0.0-3.0) Basophils (%) (Auto) 3.3 % (0.0-2.0) H Sodium Level 139 MMOL/L (136-145) Potassium Level 3.7 MMOL/L (3.5-5.1) Chloride Level 104 MMOL/L (98-107) Carbon Dioxide Level 26 MMOL/L (21-32) Anion Gap 9 mmol/L (5-15) Blood Urea Nitrogen 26 mg/dL (7-18) H Creatinine 0.5 MG/DL (0.55-1.30) L Estimat Glomerular Filtration Rate > 60 mL/min (>60) Glucose Level 109 MG/DL (74-106) H Calcium Level 9.3 MG/DL (8.5-10.1) Current Medications Medications (Trade) Dose Ordered Sig/Lucina Route PRN Reason Start Time Stop Time Status Last Admin Dose Admin Acetaminophen (Tylenol) 650 mg Q4H PRN ORAL FEVER 01/28/20 22:30 02/27/20 22:29 Albuterol/ Ipratropium (Albuterol/ Ipratropium) 3 ml Q4H PRN HHN Shortness of Breath 01/28/20 22:30 02/02/20 22:29 Chlorhexidine Gluconate (Alejandra-Hex 2%) 1 applic DAILY@2000 TOPIC 01/30/20 20:00 04/29/20 19:59 01/31/20 20:06 Dextrose (Dextrose 50%) 25 ml Q30M PRN IV Hypoglycemia 01/28/20 22:30 04/27/20 22:29 Dextrose (Dextrose 50%) 50 ml Q30M PRN IV Hypoglycemia 01/28/20 22:30 04/27/20 22:29 Heparin Sodium (Porcine) (Heparin 5000 units/ml) 5,000 units EVERY 12 HOURS SUBQ 01/29/20 09:00 03/14/20 08:59 02/01/20 08:28 Hydralazine HCl (Apresoline) 50 mg BID ORAL 01/30/20 09:00 04/29/20 08:59 02/01/20 08:27 Linezolid (Zyvox) 600 mg EVERY 12 HOURS ORAL 01/30/20 13:30 02/04/20 13:29 02/01/20 08:27 Ondansetron HCl (Zofran) 4 mg Q6H PRN IVP Nausea & Vomiting 01/28/20 22:30 02/27/20 22:29 Polyethylene Glycol (Miralax) 17 gm DAILYPRN PRN ORAL Constipation 01/28/20 22:30 02/27/20 22:29 Promethazine HCl/ Codeine (Phenergan with Codeine) 5 ml Q6H PRN ORAL cough 01/28/20 22:30 02/27/20 22:29 Vida Llamas M.D. Feb 01, 2020 11:57
[2020-02-01 12:00] VITALS: BP 113/65
--- NOTE | 2020-02-01 12:28 | NUR ---
DISCHARGE PLANNING FOLLOW UP CALL MADE TO JULIANN AT [facility]. PER JULIANN, PATIENT ACCEPTED TO [facility]. BED 8-B SKILLED [facility] [employer] WILL COORDINATE TRANSPORTATION
--- NOTE | 2020-02-01 12:45 | NUR ---
*-*DISCHARGE PLANNED*-* PATIENT HAS BEEN ACCEPTED AND WILL BE DISCHARGED TO: [facility] P: [phone] FOR NURSE TO NURSE REPORT ROOM# BED 8-B SKILLED [facility] TRANSPORTATION SET FOR 2PM/14OOPM S/W [place] [id number] S/W PATIENTS FRIEND MISHEL PEGUERO, WHO IS IN AGREEMENT WITH DC PLAN.
--- NOTE | 2020-02-01 14:43 | NUR ---
NURSE NOTES: patient was discharged to [facility] at 1445. transported via ambulance ([facility]), escorted by 2 chancellor. patient AOx2, unlabored breathing, on room air, no signs of respiratory distress. She was discharged with all her belongings, she had no medications. Patients LUI Castrejon was notified. Report was given to BHAVIN Ross at [facility]. Dr Palomo ordered to D/C the PICC line, it was removed at 1430, no bleeding or pain from site.
--- NOTE | 2020-02-03 11:40 | Discharge Summary ---
Discharge Summary Discharge Summary _ DATE OF ADMISSION: 01/28/2020 DATE OF DISCHARGE: 02/01/2020 DISCHARGED BY: Dr. Jesus Palomo CONSULTANTS: Dr. Vida Daniel BRIEF HOSPITAL COURSE: The patient is an 89-year-old female, from [facility], presented to ED due to increased weakness for 2 days and shortness of breath. Patient was tested positive for COVID-19. She was then transferred to [place]. She has medical history of CVA, weakness, GERD, hypertension, hypothyroidism, chronic atrial fibrillation and osteoporosis. Upon evaluation at ED, vital signs were stable. Patient was afebrile. Blood work did not show any leukocytosis. Hemoglobin hematocrit were stable. Electro lytes normal. Troponin negative. D-dimer and CRP were elevated. Chest x-ray did not show any focal consolidations. EKG showed A. fib with no acute changes. Covid test was negative. Patient was placed on isolation. She was started with dexamethasone and Lovenox. Patient was admitted for evaluation of generalized weakness, COVID-19 infection. Pulmonary function was monitored. She was placed on aspiration precautions. Continued on Covid 19 isolation. Continued on Lovenox for DVT prophylaxis. She was given empiric antibiotic ceftriaxone and azithromycin. She was continued on Decadron. Infectious disease specialist was consulted. Decadron and azithromycin were discontinued due to no findings of pneumonia on chest x-ray. Patient is saturating well on room air. She was continued on ceftriaxone. Urine culture showed growth of hemolytic strep. Ceftriaxone was changed to p.o. Zyvox. Repeat COVID-19 test was negative. Sputum culture showed growth of staph which was colonized. Repeat chest x-ray on January 29 did not show any acute process. Patient was cleared for discharge back to shelter. Rapid COVID-19 test during discharge planning was positive. To continue COVID-19 isolation until 02/04/2020 as long as patient remains afebrile. FINAL DIAGNOSES: COVID-19 infection Nosocomial pneumonia Moderate malnutrition Hypertension Chronic atrial fibrillation Hypothyroid Hyperlipidemia History of CVA/TIA SNF resident VRE colonized DISPOSITION: Patient was discharged back to shelter. DISCHARGE MEDICATIONS: Refer to Discharge Medication List. I have been assigned to complete a discharge summary on this account, I was not involved with the patient's management.--Eran Parks NP 02/04/2020 as long as patient remains afebrile Briana Parks NP Feb 03, 2020 11:40
== END 2020-02-01 14:45 | DRG 177 ==
LOC: EDBD 14:38 → EMR 15:18 → 4E 15:33 → EDBEDREQ 16:17
DX: U07.1 COVID-19 (principal); J18.9 Pneumonia, unspecified organism; N39.0 Urinary tract infection, site not specified; E44.0 Moderate protein-calorie malnutrition; I48.20 Chronic atrial fibrillation, unspecified; Z68.1 Body mass index [BMI] 19.9 or less, adult; Y95 Nosocomial condition; Z86.73 Personal history of transient ischemic attack (TIA), and cerebral infarction without residual deficits; I11.0 Hypertensive heart disease with heart failure; I50.9 Heart failure, unspecified; E03.9 Hypothyroidism, unspecified; M81.0 Age-related osteoporosis without current pathological fracture; E78.5 Hyperlipidemia, unspecified; Z79.01 Long term (current) use of anticoagulants
CPT/HCPCS: 36415; 71045; 80048; 80053; 80069; 81003; 82550; 82553; 82728; 83605; 83615; 83690; 83880; 84484; 85025; 85379; 85610; 85730; 86140; 87040; 87070; 87081; 87086; 87181; 87205; 93005; 94664; 96365; 96366; 96367; 96372; 96375; 99285; J7030; J8499; U0002